=== PATIENT | male | born 1970 | race Caucasian/White ===

== ENCOUNTER 2018-02-07 01:52 | Inpatient (IN) | payer OTHER ==
[2018-02-07] VITALS (8 sets, daily range): BP systolic 104–124; BP diastolic 63–78; PULSE 77–97; TEMP 36.8–37.2; O2SAT 95–99; BMI 20.3
[~2018-02-07] VITALS: Ht 182.9 cm; Wt 69.3 kg
[2018-02-07] MEDS ORDERED: ONDANSETRON INJ 2 MG/ML 2 ML VIAL IV PRN (03:30)
[2018-02-07] MEDS ORDERED: ICU PROTOCOL FOR HYPERGLYCEMIA PRN (03:30)
[2018-02-07] MEDS ORDERED: GLUCAGON FOR INJ 1 MG VIAL SQ PRN (03:30)
[2018-02-07] MEDS ORDERED: VANCOMYCIN CONSULT ACTIVE PRN (03:30)
[2018-02-07] MEDS ORDERED: CARBOHYDRATES FOR HYPOGLYCEMIA PO PRN (03:30)
[2018-02-07] MEDS ORDERED: GLUCOSE 10 TABS/TUBE PO PRN (03:30)
[2018-02-07] MEDS ORDERED: GLUCOSE 40% GEL 15 GM TUBE PO PRN (03:30)
[2018-02-07] MEDS ORDERED: NOREPINEPHRINE BIT INJ 8 MG in DEXTROSE 5% 500ML 500 ML IV PRN (03:30)
[2018-02-07] MEDS ORDERED: DEXTROSE 50% 50 ML SYR IV PRN (03:30)
[2018-02-07] MEDS ORDERED: PIPERACILL/TAZOBAC CONSULT ACTIVE PRN (03:30)
[2018-02-07] MEDS ORDERED: GABA600T PO (03:55)
[2018-02-07] MEDS ORDERED: ASPI81TA28 PO (03:55)
[2018-02-07] MEDS ORDERED: DOXY100C PO (03:55)
[2018-02-07] MEDS ORDERED: CITA20TA9 PO (03:55)
[2018-02-07] MEDS ORDERED: LCTX PO (03:55)
[2018-02-07] MEDS ORDERED: [UNRECOGNIZED DRUG - CODE] PO (03:55)
[2018-02-07] MEDS ORDERED: OXYC-90 PO (03:55)
[2018-02-07] MEDS ORDERED: TAMS0.4C38 PO (03:55)
[2018-02-07] MEDS ORDERED: ATOR-24 PO (03:55)
[2018-02-07] MEDS ORDERED: FERR1TAB13 PO (03:55)
[2018-02-07] MEDS ORDERED: SRQ/200 PO (03:56)
[2018-02-07] MEDS ORDERED: RAMI5CAP PO (03:56)
[2018-02-07] MEDS ORDERED: VNTHFA/IN INH (03:56)
[2018-02-07] MEDS ORDERED: TRAZ100T29 PO (03:56)
[2018-02-07] MEDS ORDERED: QUET1TAB10 PO (03:56)
[2018-02-07] MEDS ORDERED: TICA1TAB PO (03:56)
[2018-02-07] MEDS ORDERED: METO25TA4 PO (03:56)
[2018-02-07] MEDS ORDERED: PIPERACILL/TAZOBAC IV 4.5 GM in D5W 100 ML IV ONE (04:00)
[2018-02-07] MEDS ORDERED: GABAPENTIN 600 MG TAB PO ONE (04:07)
[2018-02-07 04:08] LABS: BASO % 0.1 %; BASO ABS # 0.01 K/uL (0-0.2); EOS % 2.1 %; EOS ABS # 0.14 K/uL (0-0.5); HEMATOCRIT 32.8 % (42-52); IG# 0.01 K/uL (0.00-0.02); LYMPH % 24.9 %; LYMPH ABS # 1.67 K/uL (1.2-3.4); MEAN CELL VOLUME 80.2 fL (80-100); MEAN CORPUSCULAR HEMOGLOBIN 26.9 pg (25-34); MEAN CORPUSCULAR HGB CONC 33.5 g/dl (32-36); MEAN PLATELET VOLUME 11.6 fL (7.4-10.4); MONO % 7.2 %; MONO ABS # 0.48 K/uL (0.11-0.59); NEUT % 65.6 %; PLATELET COUNT 230 K/uL (130-400); RED CELL DISTRIBUTION WIDTH CV 15.9 % (11.5-14.5); RED CELL DISTRIBUTION WIDTH SD 46.2 fL (36.4-46.3); WHITE BLOOD COUNT 6.71 K/uL (4.8-10.8)
[2018-02-07] MEDS ORDERED: ALBUTEROL HFA 8 GM INHALER INH PRN (04:15)
[2018-02-07] MEDS ORDERED: FENTANYL CITRATE INJ 50 MCG/1 ML 2 ML VIAL ONE (04:19)
[2018-02-07 04:20] LABS: INR 1.1 (0.9-1.1); PTT PATIENT 25.8 SECONDS (21.0-31.0)
[2018-02-07] MEDS: SODIUM CHLORIDE 0.9% 1000ML 1,000 ML IV SCH ×2 (04:24→16:30)
[2018-02-07 04:31] LABS: ALBUMIN 2.6 gm/dl (3.4-5.0); ALKALINE PHOSPHATASE 308 U/L (45-117); ALT/SGPT 203 U/L (12-78); AST/SGOT 101 U/L (15-37); BLOOD UREA NITROGEN 32 mg/dl (7-18); CALCIUM 8.3 mg/dl (8.5-10.1); CARBON DIOXIDE 20 mmol/L (21-32); GLUCOSE 209 mg/dl (70-99); LIPASE 327 U/L (73-393); PHOSPHORUS 3.9 mg/dl (2.5-4.9); POTASSIUM 4.7 mmol/L (3.5-5.1); SODIUM 136 mmol/L (136-145); TOTAL PROTEIN 7.5 gm/dl (6.4-8.2)
[2018-02-07] MEDS: OXYCODONE HCL IR 5 MG TAB (IMMEDIATE RELEASE) PO PRN ×2 (04:36→16:31)
[2018-02-07] MEDS: FENTANYL CITRATE INJ 50 MCG/1 ML 2 ML VIAL IV PRN ×2 (04:40→08:01)
[2018-02-07] MEDS ORDERED: NURSING VERBAL MED ORDER ONE (05:30)
[2018-02-07] MEDS: MAGNESIUM SULFATE 1GM / D5W 100 ML IV SCH ×2 (05:46→07:57)
--- NOTE | 2018-02-07 05:47 | History and Physical ---
History & Physical Date & Time of Service: Feb 07, 2018 at 05:08 Chief Complaint: Septic Shock, Uti Primary Care Physician: Ky Alejandro D.O. History of Present Illness Source: patient, hospital records The patient is a 47-year-old male who presented to [facility] with complaint of elevated blood sugar into the 500s-600s the past 3-4 days,, and a syncopal episode of 1-2 minutes duration earlier in the day, as he was getting out of his car. He denied any trauma to his head or otherwise during the syncopal event. In the ED at [place], he was found to be hypotensive with systolic blood pressure in the 70s, with most likely source of infection being a UTI, but he also had a history of left foot with first, second and third toe infections, and an MRSA infected seroma post back surgery 1 month ago , for which he was thought to be on doxycycline. Despite having received 3 L of normal saline, and empiric treatment with vancomycin IV and cefepime IV, his blood pressure was still 74/60, and he was accepted in transfer to [facility] for further treatment at that time. Our advice at that time was to get an ABG, and start the patient on Levophed for pressure support. Past Medical/Surgical History Medical Problems: CAD Coronary artery stents , 12/19,& STEMI 12/19/17 GERD Anxiety Asthma Chronic back pain Depression Hyperlipidemia MRSA Neuropathy Lumbar spinal stenosis Tachycardia Diabetes mellitus Left foot first 3 toes osteomyelitis Chronic pain syndrome COPD Hypertension Insomnia BPH Sleep apnea Iron deficiency Cardiac catheterization 12/19,& Cardiac catheterization 01/30/18 Lumbar laminectomy and fusion 12/03/17 Ureteral stent insertion 11/11/17 Removal of stone and stent 11/27/17 Family History Mother with diabetes mellitus. Grandparents with heart disease and hypertension Social History Smoking Status: Current Every Day Smoker Smokeless Tobacco Use: No Alcohol Use: none Drug Use: none Marital Status: Housing status: lives with family Occupational Status: unemployed Immunizations History of Influenza Vaccine: Unknown History of Tetanus Vaccine?: Unknown History of Pneumococcal: Unknown History of Hepatitis B Vaccine: Unknown Allergies Coded Allergies: Morphine (Verified Allergy, Intermediate, RASH, 02/07/18) Promethazine (Verified Allergy, Intermediate, ANXIOUS/IRRITABLE, 02/07/18) Acetaminophen (Verified Adverse Reaction, Intermediate, GI UPSET, STILL TAKES IT, 02/07/18) Prochlorperazine (Verified Adverse Reaction, Intermediate, ANXIOUS/ IRRITABLE, 02/07/18) Home Medications Scheduled Aspirin (Aspirin Ec), 81 MG PO DAILY Atorvastatin (Lipitor), 40 MG PO DAILY Citalopram Hydrobromide (Celexa), 20 MG PO DAILY Doxycycline Hyclate (Vibramycin), 100 MG PO BID Ferrous Sulfate (Kp Ferrous Sulfate), 325 TAB PO DAILY Gabapentin (Neurontin), 600 MG PO BID Lactobacillus Acidophilus (Lactinex), 2 TAB PO BID Megestrol Acetate (Appetite) (Megestrol Acetate), 625 MG PO DAILY Metoprolol Succinate (Toprol Xl), 25 MG PO DAILY Quetiapine Fumarate (Seroquel), 200 MG PO QAM Quetiapine Fumarate (Seroquel), 400 MG PO HS Ramipril (Ramipril), 5 MG PO DAILY Tamsulosin Hcl (Flomax), 0.4 MG PO DAILY Ticagrelor (Brilinta), 90 MG PO BID Trazodone Hcl (Trazodone), 150 MG PO HS Scheduled PRN Albuterol Hfa (Ventolin Hfa), 2 PUFFS INH Q6H PRN for SOB/Wheezing Oxycodone Ir (Roxicodone Ir), 15 MG PO Q6H PRN for Pain Review of Systems The patient denies chest pain, palpitations, shortness of breath, dyspnea on exertion, cough, sore throat, nausea, vomiting, diarrhea , constipation, abdominal pain, pelvic pain, blood in urine or stool, dysuria, urinary frequency or urgency, memory loss, abnormal bruising or bleeding, numbness or tingling in arms, generalized arthralgias or myalgias, neck pain, or night sweats. The review of systems is otherwise negative other than for that already noted above, and at least 10 systems have been reviewed. Physical Exam Vital Signs Date Time Temp Pulse Resp B/P (MAP) Pulse Ox O2 Delivery O2 Flow Rate FiO2 02/07/18 03:36 37.2 93 19 124/78 99 Room Air The patient is awake, alert and oriented 3, normocephalic and atraumatic, lying in bed and in no acute distress. HEENT--PERRL, EOMI, mucous membranes and oropharynx dry. Neck--supple. No JVD. No bruits. Thyroid normal, trachea midline, no adenopathy. Heart--normal S1 and S2. No murmurs, rubs or gallops. Lungs--clear bilaterally, no respiratory distress, no accessory muscle use. Abdomen--normal bowel sounds and soft. Nontender. Nondistended, no hernias or masses, no organomegaly. Extremities/ Dermatologic-eschar along left first second and third digits extending from tips of toes distally to PIPs and DIPs. Neurologic--cranial nerves II through XII grossly intact. Rheumatologic--normal range of motion. Psychiatric--normal affect. Diagnostics Laboratory Results Results Past 24 Hours Test 02/07/18 03:24 02/07/18 04:01 02/07/18 04:44 Range/Units Bedside Glucose 239 70-99 mg/dl White Blood Count 6.71 4.8-10.8 K/uL Red Blood Count 4.09 4.7-6.1 M/uL Hemoglobin 11.0 14.0-18.0 g/dL Hematocrit 32.8 42-52 % Mean Corpuscular Volume 80.2 80-100 fL Mean Corpuscular Hemoglobin 26.9 25-34 pg Mean Corpuscular Hemoglobin Concent 33.5 32-36 g/dl Platelet Count 230 130-400 K/uL Mean Platelet Volume 11.6 7.4-10.4 fL Neutrophils (%) (Auto) 65.6 % Lymphocytes (%) (Auto) 24.9 % Monocytes (%) (Auto) 7.2 % Eosinophils (%) (Auto) 2.1 % Basophils (%) (Auto) 0.1 % Neutrophils # (Auto) 4.40 1.4-6.5 K/uL Lymphocytes # (Auto) 1.67 1.2-3.4 K/uL Monocytes # (Auto) 0.48 0.11-0.59 K/uL Eosinophils # (Auto) 0.14 0-0.5 K/uL Basophils # (Auto) 0.01 0-0.2 K/uL RDW Standard Deviation 46.2 36.4-46.3 fL RDW Coefficient of Variation 15.9 11.5-14.5 % Immature Granulocyte % (Auto) 0.1 % Immature Granulocyte # (Auto) 0.01 0.00-0.02 K/uL Prothrombin Time 11.4 9.0-12.0 SECONDS Prothromb Time International Ratio 1.1 0.9-1.1 Activated Partial Thromboplast Time 25.8 21.0-31.0 SECONDS Partial Thromboplastin Ratio 1.0 Sodium Level 136 136-145 mmol/L Potassium Level 4.7 3.5-5.1 mmol/L Chloride Level 110 98-107 mmol/L Carbon Dioxide Level 20 21-32 mmol/L Anion Gap 6.0 3-11 mmol/L Blood Urea Nitrogen 32 7-18 mg/dl Creatinine 1.20 0.60-1.40 mg/dl Estimated GFR () 83.0 Estimated GFR (Non- 71.6 BUN/Creatinine Ratio 26.5 10-20 Random Glucose 209 70-99 mg/dl Lactic Acid Level 1.2 0.4-2.0 mmol/L Calcium Level 8.3 8.5-10.1 mg/dl Phosphorus Level 3.9 2.5-4.9 mg/dl Magnesium Level 1.5 1.8-2.4 mg/dl Total Bilirubin 0.5 0.2-1 mg/dl Direct Bilirubin 0.2 0-0.2 mg/dl Aspartate Amino Transf (AST/SGOT) 101 15-37 U/L Alanine Aminotransferase (ALT/SGPT) 203 12-78 U/L Alkaline Phosphatase 308 45-117 U/L Troponin I 0.075 0-0.045 ng/ml Total Protein 7.5 6.4-8.2 gm/dl Albumin 2.6 3.4-5.0 gm/dl Globulin 4.9 2.5-4.0 gm/dl Albumin/Globulin Ratio 0.5 0.9-2 Lipase 327 73-393 U/L Microbiology Results 02/07/18 MRSA DNA Surveillance Screen, Received Pending 02/07/18 Gram Stain, Ordered Pending 02/07/18 Wound Culture, Ordered Pending CXR normal EKG EKG is pending. Impression Assessment and Plan Septic shock-- Admit to ICU. Upon arrival, patient's systolic blood pressure was 124, and Levophed infusion was discontinued. Patient has received 3 L of normal saline in total from [place], and will be continued at 75 ML's per hour now. Patient has received vancomycin 1500 mg IV and cefepime 1 g IV at [facility]. He will be admitted on vancomycin IV and Zosyn IV per pharmacokinetic monitoring. Consult whizzer hand Dr. Winslow. Consult infectious disease Dr. Colon. Consult wound care. Potential sources of infection include urine, left foot osteomyelitis and MRSA infected seroma. Follow wound culture, urine culture and sensitivities and blood cultures, and coordinate with those performed at [facility]. Of note, patient reports he will be scheduled shortly for left first, second and third toe amputation. Culture was performed of drainage at bedside by staff. CAD/hypertension/STEMI history/coronary artery stents 4/chronically elevated troponin-- Follow serial troponins. Continue aspirin 81 mg daily and Brilinta 90 mg p.o. twice daily. Hold ramipril 5 mg daily and Toprol-XL 25 mg daily due to low blood pressure. Diabetes mellitus-- Placed on Accu-Cheks before meals and at bedtime with NovoLog coverage per scale. Review with patient present medications, as he is none listed on his present medical list. Hyperlipidemia-- Continue atorvastatin 40 mg at bedtime. Depression-- Continue Celexa 20 mg daily, Seroquel and trazodone. COPD-- continue pro-air HFA. Chronic pain syndrome-- Continue gabapentin 600 mg p.o., but increased from twice daily to 3 times daily with extra dose now, and oxycodone 15 mg p.o. every 6 hours as needed. Placed on fentanyl 25 mcg IV every 2 hours as needed breakthrough pain BPH-- Continue Flomax 0.4 mg p.o. daily, but moved to bedtime. Appetite stimulation-- Continue Megace. Advanced Directives Existing Advance Directive: No Existing Living Will: No Existing Power of Sugar Mixer: No Resuscitation Status VTE Prophylaxis Will order VTE Prophylaxis: Yes Social Service Consult None Apply Note Total Time: Critical Care 30 - 74 minutes
--- NOTE | 2018-02-07 06:57 | Progress Note ---
Progress Note Date of Service Feb 07, 2018. Progress Note ID Consult Dictated #[id number] A/P: 1. Sepsis, multiple potential sources, infected back hardware (h/o MRSA), gangrene Left foot -Continue abx -Will check blood and urine cultures -Suggest surgery eval, gangrene left toes -Thank you
--- NOTE | 2018-02-07 07:15 | DIAGNOSTIC IMAGING REPORT ---
CHEST ONE VIEW PORTABLE CLINICAL HISTORY: sepsis dyspnea COMPARISON STUDY: No previous studies for comparison. FINDINGS: The bones soft tissues and hemidiaphragms are normal. The cardiomediastinal silhouette is normal. The lungs are clear. The pulmonary vasculature is normal. IMPRESSION: Negative chest. The above report was generated using voice recognition software. It may contain grammatical, syntax or spelling errors. Electronically signed by: Vaughn Duran M.D. 02/07/2018 7:14 AM Dictated Date/Time: 02/07/2018 7:14 AM
--- NOTE | 2018-02-07 07:50 | DIAGNOSTIC IMAGING REPORT ---
L FOOT MIN 3 VIEWS ROUTINE CLINICAL HISTORY: osteo left 1, 2 and 3rd toe COMPARISON: None. DISCUSSION: The bones and joint spaces appear intact. There is no evidence of fracture, dislocation or bony disease. There is no evidence for soft tissue swelling. IMPRESSION: Negative study. The above report was generated using voice recognition software. It may contain grammatical, syntax or spelling errors. Electronically signed by: Vaughn Duran M.D. 02/07/2018 7:49 AM Dictated Date/Time: 02/07/2018 7:48 AM
[2018-02-07] MEDS: INSULIN ASPART 100 UNITS/ML 3 ML PEN SC SCH ×4 (08:00→21:58)
[2018-02-07] MEDS: LACTOBACILLUS ACIDOPHILUS (FLORANEX) TAB PO SCH ×3 (08:07→16:30)
[2018-02-07] MEDS: TICAGRELOR 90 MG TAB PO SCH ×2 (08:07→22:00)
[2018-02-07] MEDS: QUETIAPINE FUMARATE 200 MG TAB PO SCH ×2 (08:08→21:40)
[2018-02-07] MEDS: GABAPENTIN 600 MG TAB PO SCH ×3 (08:08→21:43)
[2018-02-07] MEDS: ASPIRIN 81 MG ECTAB PO SCH (08:08)
[2018-02-07] MEDS: FERROUS SULFATE 325 MG TAB PO SCH (08:08)
[2018-02-07] MEDS: CITALOPRAM 20 MG TAB PO SCH (08:08)
[2018-02-07] MEDS: HEPARIN SOD 5000 UNIT/0.5 ML CARP SQ SCH ×2 (08:10→21:59)
[2018-02-07] MEDS ORDERED: ASPIRIN 81 MG ECTAB PO SCH (09:00)
[2018-02-07] MEDS: VANCOMYCIN IV 1,000 MG in SODIUM CHLORIDE 0.9% 250ML 250 ML IV SCH ×2 (09:13→21:39)
--- NOTE | 2018-02-07 09:41 | INFECT. DISEASE CONSULTATION ---
DATE OF CONSULTATION: 02/07/2018 HISTORY OF PRESENT ILLNESS: This is a 48-year-old gentleman who was transferred from [facility] secondary to hypotension and hyperglycemia. He presented initially there with high blood sugars in the 500-600 range several days prior to admission. He was also found to be hypotensive with a systolic blood pressure in the 70s. He was given IV fluids without little response and he was subsequently transferred. He was admitted to the intensive care unit and placed on norepinephrine. His systolic blood pressure is 120 on my examination this morning. The patient states that he recently completed a course of IV vancomycin for infected lumbar hardware. His hardware was retained and he states his repeat cultures were negative and he was then placed on suppressive doxycycline, which he has been on up until his admission yesterday. He was placed on vancomycin and Zosyn empirically. There was some concern at [facility] about urinary tract infection; however, no UA or urine culture was done here. His white blood cell count is normal. His LFTs are elevated. He is also found to have gangrenous changes of several toes on his left foot. He is complaining of left foot pain which has been there for some time. He also does report some underlying neuropathy. He denies any fevers or chills at home. He states his PICC line has been removed for some time. No blood cultures were obtained on admission. A wound culture is pending; however, there are no open areas of discharge on the foot. He currently denies any abdominal pain. He denies any chest pain, cough or shortness of breath. He has no nausea, vomiting or diarrhea. He states his weight is stable. REVIEW OF SYSTEMS: His remaining review of systems is reviewed and is unremarkable except for as noted above. PAST MEDICAL HISTORY: He has an extensive past medical history including coronary artery disease with recent cardiac stenting in November of 2017. He recently had an ST elevated SC on December 19. He has a history of GERD, anxiety, asthma, back pain, depression, hyperlipidemia, MRSA, sepsis secondary to infected lumbar hardware which remains in place, diabetic neuropathy, spinal stenosis, diabetes, left foot osteomyelitis, COPD, hypertension, insomnia, BPH, sleep apnea, iron deficiency, lumbar laminectomy and fusion in November with subsequent infection, history of ureteral stent insertion in October with removal of stones in November. FAMILY HISTORY: Noncontributory. SOCIAL HISTORY: Significant for daily tobacco use. He denies any alcohol or drug use. He denies any recent sick contacts. ALLERGIES: MORPHINE, ACETAMINOPHEN, PROCHLORPERAZINE, PROMETHAZINE. CURRENT MEDICATIONS: Lipitor, Seroquel, Flomax, trazodone, Zosyn, subQ heparin, vancomycin, aspirin, Celexa, Neurontin, Seroquel, Brilinta, iron, Floranex, insulin, albuterol, fentanyl, oxycodone, Ativan, norepinephrine, Zofran. PHYSICAL EXAMINATION: VITAL SIGNS: He is currently afebrile, pulse 93, respiratory rate 18, blood pressure 124/78, oxygen saturation is 99% on room air. GENERAL: He is awake, alert and oriented x3. He is in no acute distress. HEENT: Mucous membranes are moist. Extraocular muscles are intact. HEART: Regular. I do not auscultate a murmur. LUNGS: Clear bilaterally. ABDOMEN: Soft, nontender, nondistended. EXTREMITIES: There is no lower extremity edema. Examination of the left foot reveals dry gangrene of the first, second and third digits. This is tender to palpation. There is no erythema, warmth or purulent drainage. LABORATORY STUDIES: CBC: White blood cell count 6.7, hemoglobin 11, platelets 230. Chemistry panel: Sodium 136, potassium 4.7, chloride 110, bicarbonate 20, BUN 32, creatinine 1.2, glucose 209. AST 101, ALT 203. Troponin 0.075. Lipase is normal. UA is not performed. Hepatitis screen is pending. Lactic acid was normal. Wound culture is pending. MRSA swab was negative. Chest x-ray is pending. ASSESSMENT AND PLAN: Postoperative infection with MRSA. He will continue on empiric antibiotics. His blood cultures as well as his urine cultures and UA will be obtained if these are of concerned sources for infection, certainly gangrenous toes and subsequent sepsis could also be a source for infection and surgical consult should be obtained as well. Thank you for this consultation.
--- NOTE | 2018-02-07 10:06 | Critical Care Consultation ---
Critical Care Consultation Date of Consultation: Feb 07, 2018. Attending Physician: Amilcar Winslow MD Reason for Consultation: Sepsis History of Present Illness Dear Dr. Kirk: Thank you for the kind referral Mr. Miles to critical care service. This is 48- year-old gentleman with a history of diabetes, controlled by insulin and metformin, history of peripheral arterial disease with ischemic digits on the left, history of spinal fracture and degenerative joint disease status post thoracolumbar fusion with most recent procedure done in November 2017 complicated by infected seroma and has been on suppressive therapy with doxycycline. The patient also has history of coronary artery disease status post acute MS with 4 stents done over a month ago and currently he is on Brilinta. The patient was at his brother house when he passed out and was brought to the ER at [place] where he was found to be hypotensive and started on IV fluid. Concerns about sepsis related to starting him on IV fluid where he received 4 L of normal saline. The patient has a history of cardiomyopathy which appeared to be ischemic and ejection fraction of 40% according to the records from Dr. Kirk, and the patient was life flighted to our institution for sepsis due to lack of service at that institution. The patient chief complaint was left lower extremity pain due to the gangrenous 3 digits, the patient has been treated for the pain with fentanyl which have been short acting and has not been controlling his pain. He denies any chills or fever, no nausea or vomiting, no shortness of breath or cough, no abdominal pain no frequent urination or dysuria, he denies any diarrhea, he had back pain that has been chronic. And treated at the other facility. The patient did not require norepinephrine in the hospital and was taken off immediately. The patient glucose on the first presentation was 500 and currently been well controlled. The patient started also on oral intake and he is following commands and answering questions properly, no evidence of near syncopal episode at the moment no chest pain is also been reported. The rest of his review of system was unremarkable except for the pain in his left lower extremity. Social History Smoking Status: Current Every Day Smoker Smokeless Tobacco Use: No Alcohol Use: none Drug Use: none Marital Status: Occupation Status: unemployed Allergies Coded Allergies: Morphine (Verified Allergy, Intermediate, RASH, 02/07/18) Promethazine (Verified Allergy, Intermediate, ANXIOUS/IRRITABLE, 02/07/18) Acetaminophen (Verified Adverse Reaction, Intermediate, GI UPSET, STILL TAKES IT, 02/07/18) Prochlorperazine (Verified Adverse Reaction, Intermediate, ANXIOUS/ IRRITABLE, 02/07/18) Home Medications Scheduled Aspirin (Aspirin Ec), 81 MG PO DAILY Atorvastatin (Lipitor), 40 MG PO DAILY Citalopram Hydrobromide (Celexa), 20 MG PO DAILY Doxycycline Hyclate (Vibramycin), 100 MG PO BID Ferrous Sulfate (Kp Ferrous Sulfate), 325 TAB PO DAILY Gabapentin (Neurontin), 600 MG PO BID Lactobacillus Acidophilus (Lactinex), 2 TAB PO BID Megestrol Acetate (Appetite) (Megestrol Acetate), 625 MG PO DAILY Metoprolol Succinate (Toprol Xl), 25 MG PO DAILY Quetiapine Fumarate (Seroquel), 200 MG PO QAM Quetiapine Fumarate (Seroquel), 400 MG PO HS Ramipril (Ramipril), 5 MG PO DAILY Tamsulosin Hcl (Flomax), 0.4 MG PO DAILY Ticagrelor (Brilinta), 90 MG PO BID Trazodone Hcl (Trazodone), 150 MG PO HS Scheduled PRN Albuterol Hfa (Ventolin Hfa), 2 PUFFS INH Q6H PRN for SOB/Wheezing Oxycodone Ir (Roxicodone Ir), 15 MG PO Q6H PRN for Pain Current Inpatient Medications Current Inpatient Medications Medications (Trade) Dose Ordered Sig/Lavonne Route Start Time Stop Time Status Last Admin Dose Admin Heparin Sodium (Porcine) (Heparin Sq 5000 Unit/0.5ml) 5,000 unit Q12H SQ 02/07/18 09:00 03/09/18 08:59 02/07/18 08:10 5,000 UNIT Sodium Chloride 1,000 ml @ 75 mls/hr [id number] IV 02/07/18 03:30 03/09/18 03:29 02/07/18 04:24 150 MLS/HR Lorazepam (Ativan Inj) 0.5 mg Q4H PRN IV 02/07/18 03:30 03/09/18 03:29 Miscellaneous Information (Icu Protocol For Hyperglycemia) 1 ea PRN PRN N/A 02/07/18 03:30 02/09/18 03:29 Vancomycin HCl 1000 mg/Sodium Chloride 270 ml @ 125 mls/hr Q12 IV 02/07/18 09:00 02/09/18 08:59 02/07/18 09:13 125 MLS/HR Vancomycin HCl (Consult) 1 ea UD PRN N/A 02/07/18 03:30 03/09/18 03:29 Piperacillin Sod/ Tazobactam Sod 3.375 gm/Dextrose 115 ml @ 28.75 mls/ hr Q8H IV 02/07/18 10:00 02/09/18 09:59 Miscellaneous Information (Consult) 1 ea UD PRN N/A 02/07/18 03:30 03/09/18 03:29 Ondansetron HCl (Zofran Inj) 4 mg Q6H PRN IV 02/07/18 03:30 03/09/18 03:29 Insulin Aspart (novoLOG ASPART) SLIDING SCALE If C... ACHS SC 02/07/18 06:45 03/09/18 06:44 02/07/18 08:00 12 UNITS Glucose (Glucose 40% Gel) 15-30 GRAMS 15 GRAMS... UD PRN PO 02/07/18 03:30 03/09/18 03:29 Glucose (Glucose Chew Tab) 4-8 Tablets 4 Tabl... UD PRN PO 02/07/18 03:30 03/09/18 03:29 Dextrose (Dextrose 50% 50ML Syringe) 25-50ML OF 50% DW IV FOR... UD PRN IV 02/07/18 03:30 03/09/18 03:29 Glucagon (Glucagon Inj) 1 mg UD PRN SQ 02/07/18 03:30 03/09/18 03:29 Carbohydrates (Carbohydrates For Hypoglycemia) 15-30 GRAMS 15 grams if BSG 54-69... UD PRN PO 02/07/18 03:30 03/09/18 03:29 Oxycodone HCl (Roxicodone Immediate Rel Tab) 15 mg Q6H PRN PO 02/07/18 03:45 02/21/18 03:44 02/07/18 04:36 15 MG Albuterol (Ventolin Hfa Inhaler) 2 puffs Q6H PRN INH 02/07/18 04:15 03/09/18 04:14 Aspirin (Ecotrin Tab) 81 mg DAILY PO 02/07/18 09:00 03/09/18 08:59 02/07/18 08:08 81 MG Atorvastatin Calcium (Lipitor Tab) 40 mg HS PO 02/07/18 21:00 03/09/18 20:59 Citalopram Hydrobromide (celeXA TAB) 20 mg DAILY PO 02/07/18 09:00 03/09/18 08:59 02/07/18 08:08 20 MG Gabapentin (Neurontin Tab) 600 mg TID PO 02/07/18 09:00 03/09/18 08:59 02/07/18 08:08 600 MG Quetiapine Fumarate (seroQUEL TAB) 200 mg QAM PO 02/07/18 09:00 03/09/18 08:59 02/07/18 08:08 200 MG Quetiapine Fumarate (seroQUEL TAB) 400 mg HS PO 02/07/18 21:00 03/09/18 20:59 Tamsulosin HCl (Flomax Cap) 0.4 mg HS PO 02/07/18 21:00 03/09/18 20:59 Ticagrelor (Brilinta Tab) 90 mg BID PO 02/07/18 09:00 03/09/18 08:59 02/07/18 08:07 90 MG Trazodone HCl (Desyrel Tab) 150 mg HS PO 02/07/18 21:00 03/09/18 20:59 Miscellaneous Information (Order Awaiting Action) 1 ea QS N/A 02/07/18 08:00 03/09/18 07:59 Lactobacillus Acidophilus (Floranex Tab) 4 tab TIDM PO 02/07/18 07:15 03/09/18 07:14 02/07/18 08:07 4 TAB Ferrous Sulfate (Feosol Tab) 325 mg QAM PO 02/07/18 09:00 03/09/18 08:59 02/07/18 08:08 325 MG Hydromorphone HCl (Dilaudid Inj) 1 mg Q2HWA PRN IV 02/07/18 09:45 02/21/18 09:44 UNV Review of Systems Constitutional: No fever, No chills, No sweats, No weight loss, No weakness, No fatigue, No problem reported Eyes: No worsening of vision, No eye pain, No redness, No discharge, No diplopia, No problem reported ENT: No hearing loss, No unusual epistaxis, No nasal symptoms, No sore throat, No tinnitus, No dental problems, No trouble swallowing, No problem reported Respiratory: No cough, No sputum, No wheezing, No shortness of breath, No dyspnea on exertion, No dyspnea at rest, No hemoptysis, No problem reported Cardiovascular: No chest pain, No orthopnea, No PND, No edema, No claudication , No palpitations, No problem reported Abdomen: No pain, No nausea, No vomiting, No diarrhea, No constipation, No GI bleeding, No problem reported Musculoskeletal: + problem reported (Left lower extremity pain due to gangrenous toes.) Genitourinary - Male: No hematuria, No dysuria, No urinary frequency, No urinary urgency, No urinary hesitancy, No urinary retention, No urinary incontinence, No penile discharge, No lesions, No impotence, No problem reported Neurologic: No memory loss, No paralysis, No weakness, No numbness/tingling, No vertigo, No balance problems, No problem reported Psychiatric: No depression symptoms, No anhedonism, No anxiety, No insomnia, No substance abuse, No problem reported Endocrine: No fatigue, No excessive thirst, No excessive urination, No problem reported Hematologic / Lymphatic: No abnormal bleeding/bruising, No clotting problems, No swollen lymph nodes, No night sweats, No problem reported Integumentary: No rash, No itch, No new/changing skin lesions, No color change , No bleeding, No problem reported Allergic / Immunologic: No environmental allergies, No seasonal allergies, No pet sensitivities, No food allergies, No hives, No frequent infections, No poor healing, No prolonged convalescence, No problem reported Physical Exam Date Time Temp Pulse Resp B/P (MAP) Pulse Ox O2 Delivery O2 Flow Rate FiO2 02/07/18 08:00 37.2 90 19 117/72 (87) 97 Room Air 02/07/18 08:00 Room Air 02/07/18 03:36 37.2 93 19 124/78 99 Room Air General Appearance: no apparent distress Eyes: EOMI ENT: normal throat exam, normal sinus exam Neck: normal range of motion Respiratory: breath sounds normal Cardiovasular: regular rate/rhythm Abdomen: non tender Back: other (Mild tenderness mainly in the lumbar and thoracic area.) Lower Extremities: other (Gangrenous 3 digits 1 2 and 3 in the left lower extremity. Dry gangrene.) Neuro: alert, oriented x 3, normal motor exam, normal sensation Psychiatric: normal affect, other (History of bipolar.) Laboratory Results Last 24 Hours Test 02/07/18 03:24 02/07/18 04:01 02/07/18 05:09 02/07/18 06:57 Bedside Glucose 239 mg/dl White Blood Count 6.71 K/uL Red Blood Count 4.09 M/uL Hemoglobin 11.0 g/dL Hematocrit 32.8 % Mean Corpuscular Volume 80.2 fL Mean Corpuscular Hemoglobin 26.9 pg Mean Corpuscular Hemoglobin Concent 33.5 g/dl Platelet Count 230 K/uL Mean Platelet Volume 11.6 fL Neutrophils (%) (Auto) 65.6 % Lymphocytes (%) (Auto) 24.9 % Monocytes (%) (Auto) 7.2 % Eosinophils (%) (Auto) 2.1 % Basophils (%) (Auto) 0.1 % Neutrophils # (Auto) 4.40 K/uL Lymphocytes # (Auto) 1.67 K/uL Monocytes # (Auto) 0.48 K/uL Eosinophils # (Auto) 0.14 K/uL Basophils # (Auto) 0.01 K/uL RDW Standard Deviation 46.2 fL RDW Coefficient of Variation 15.9 % Immature Granulocyte % (Auto) 0.1 % Immature Granulocyte # (Auto) 0.01 K/uL Prothrombin Time 11.4 SECONDS Prothromb Time International Ratio 1.1 Activated Partial Thromboplast Time 25.8 SECONDS Partial Thromboplastin Ratio 1.0 Sodium Level 136 mmol/L Potassium Level 4.7 mmol/L Chloride Level 110 mmol/L Carbon Dioxide Level 20 mmol/L Anion Gap 6.0 mmol/L Blood Urea Nitrogen 32 mg/dl Creatinine 1.20 mg/dl Estimated GFR () 83.0 Estimated GFR (Non- 71.6 BUN/Creatinine Ratio 26.5 Random Glucose 209 mg/dl Lactic Acid Level 1.2 mmol/L Calcium Level 8.3 mg/dl Phosphorus Level 3.9 mg/dl Magnesium Level 1.5 mg/dl Total Bilirubin 0.5 mg/dl Direct Bilirubin 0.2 mg/dl Aspartate Amino Transf (AST/SGOT) 101 U/L Alanine Aminotransferase (ALT/SGPT) 203 U/L Alkaline Phosphatase 308 U/L Troponin I 0.075 ng/ml Total Protein 7.5 gm/dl Albumin 2.6 gm/dl Globulin 4.9 gm/dl Albumin/Globulin Ratio 0.5 Lipase 327 U/L Hepatitis B Surface Antigen NEG Diagnostic Results No leukocytosis, or left shift, BUN/creatinine has been stable, lactic acid is normal, chest x-ray is normal, no evidence of abnormality to suggest sepsis. UA is still pending. Assessment & Plan 1. Hyperosmolar hyperglycemia resulted in dehydration and hypotension. 2. I found no evidence of sepsis in this patient, patient is not febrile, no leukocytosis, no left shift, no bandemia, no lactic acidosis either. Chest x- ray is normal, UA is pending, abdomen is benign, the patient is on doxycycline for suppressive therapy for infected seroma since November. 3. Poorly controlled diabetes. 4. Peripheral arterial disease, status post dry gangrene in the left lower extremity. 5. Bipolar disorder. 6. Coronary artery disease status post PURVI 4 in November 2017 currently on Brilinta. 7. Ischemic cardiomyopathy with ejection fraction of 40%. Plan: 1. Appreciate all notes including infectious disease note. 2. Continue with doxycycline. 3. May discontinue all antibiotics other than doxycycline which has been prescribed as a suppressive therapy for staphylococcal infection. 4. Discontinue norepinephrine. 5. Continue with normal saline at 80 mL an hour only. Ejection fraction 40% should be adequate to handle it. 6. DVT prophylaxis. 7. Continue with aspirin and Brilinta. 8. The patient likely will need lower extremity digit amputation due to gangrene, vascular consult request in that regard. 9. Glucose control. 10. Oral intake. 11. As mentioned above, no evidence of sepsis or septic shock in this patient. 12. Disposition the patient to regular floor. 13. Continue with Dilaudid and discontinue fentanyl as it is short-acting for pain control. 14. Continue his antipsychotic medication. 15. Discussed with the staff on rounds and details, although was appreciated, critical care time spent with the patient was 45 minutes.
[2018-02-07] MEDS: HYDROmorphone INJ 0.5 MG/0.5 ML SYR IV PRN ×6 (10:26→23:47)
[2018-02-07] MEDS: PIPERACILL/TAZOBAC IV 3.375 GM in DEXTROSE 5% 100ML 100 ML IV SCH ×2 (10:27→17:01)
--- NOTE | 2018-02-07 11:11 | DIAGNOSTIC IMAGING REPORT ---
(LIVER) ABDOMEN LIMITED CLINICAL HISTORY: abnormal LFT's pain. Nausea. TECHNIQUE: Ultrasound COMPARISON STUDY: None FINDINGS: Prior cholecystectomy. Common bile duct 5 mm. Mild fatty replacement of the liver. Pancreas and right kidney are unremarkable. No evidence for right renal hydronephrosis. IMPRESSION: 1. Mild fatty infiltration of liver. 2. Otherwise negative study post cholecystectomy. The above report was generated using voice recognition software. It may contain grammatical, syntax or spelling errors. Electronically signed by: Vaughn Duran M.D. 02/07/2018 11:10 AM Dictated Date/Time: 02/07/2018 11:09 AM
[2018-02-07 12:23] LABS: CKMB 1.6 ng/ml (0.5-3.6)
[2018-02-07] MEDS: BOOST GLUCOSE CONTROL VANILLA PO SCH (16:29)
[2018-02-07 19:55] LABS: CKMB 1.4 ng/ml (0.5-3.6)
[2018-02-07] MEDS: TAMSULOSIN HCL 0.4 MG CAP PO SCH (21:40)
[2018-02-07] MEDS: TRAZODONE HCL 100 MG TAB PO SCH (21:41)
[2018-02-07] MEDS: ATORVASTATIN 20 MG TAB PO SCH (21:42)
[2018-02-08] MEDS: OXYCODONE HCL IR 5 MG TAB (IMMEDIATE RELEASE) PO PRN ×2 (00:47→07:56)
[2018-02-08] MEDS: PIPERACILL/TAZOBAC IV 3.375 GM in DEXTROSE 5% 100ML 100 ML IV SCH ×3 (02:08→17:31)
[2018-02-08] MEDS: HYDROmorphone INJ 0.5 MG/0.5 ML SYR IV PRN ×11 (02:08→23:30)
[2018-02-08 04:08] VITALS: BP 114/81; PULSE 84; TEMP 36.9; O2SAT 96
[2018-02-08] MEDS: SODIUM CHLORIDE 0.9% 1000ML 1,000 ML IV SCH (04:32)
[2018-02-08 07:02] LABS: BASO % 0.2 %; BASO ABS # 0.01 K/uL (0-0.2); EOS ABS # 0.17 K/uL (0-0.5); HEMATOCRIT 32.1 % (42-52); HEMOGLOBIN 10.7 g/dL (14.0-18.0); IG# 0.01 K/uL (0.00-0.02); LYMPH % 26.6 %; LYMPH ABS # 1.51 K/uL (1.2-3.4); MEAN CELL VOLUME 81.5 fL (80-100); MEAN CORPUSCULAR HEMOGLOBIN 27.2 pg (25-34); MEAN CORPUSCULAR HGB CONC 33.3 g/dl (32-36); MEAN PLATELET VOLUME 11.4 fL (7.4-10.4); MONO % 6.7 %; MONO ABS # 0.38 K/uL (0.11-0.59); NEUT % 63.3 %; PLATELET COUNT 230 K/uL (130-400); RED CELL DISTRIBUTION WIDTH SD 47.3 fL (36.4-46.3); WHITE BLOOD COUNT 5.68 K/uL (4.8-10.8)
[2018-02-08 07:07] LABS: PTT PATIENT 26.7 SECONDS (21.0-31.0)
--- NOTE | 2018-02-08 07:09 | DIAGNOSTIC IMAGING REPORT ---
CHEST ONE VIEW PORTABLE CLINICAL HISTORY: Sepsis. COMPARISON STUDY: Chest radiograph February 07, 2018. FINDINGS: A 5 mm metallic density projects over the right upper quadrant. This may reflect a BB. There is slight elevation of the right hemidiaphragm. No pneumothorax or pleural effusion is present. There is no consolidation to suggest pneumonia. Pulmonary vascularity is normal. Cardiac size is normal. Mediastinal contours are normal. A few healed left rib fractures are incidentally noted. IMPRESSION: No acute cardiopulmonary findings. Electronically signed by: Pako Lopez M.D. 02/08/2018 7:08 AM Dictated Date/Time: 02/08/2018 7:06 AM
[2018-02-08] MEDS: BOOST GLUCOSE CONTROL VANILLA PO SCH ×2 (07:37→16:56)
[2018-02-08] MEDS: CITALOPRAM 20 MG TAB PO SCH (07:38)
[2018-02-08] MEDS: FERROUS SULFATE 325 MG TAB PO SCH (07:38)
[2018-02-08] MEDS: TICAGRELOR 90 MG TAB PO SCH ×2 (07:39→21:00)
[2018-02-08] MEDS: ASPIRIN 81 MG ECTAB PO SCH (07:39)
[2018-02-08] MEDS: GABAPENTIN 600 MG TAB PO SCH ×3 (07:39→21:01)
[2018-02-08] MEDS: LACTOBACILLUS ACIDOPHILUS (FLORANEX) TAB PO SCH ×3 (07:40→16:56)
[2018-02-08] MEDS: QUETIAPINE FUMARATE 200 MG TAB PO SCH ×2 (07:40→21:00)
[2018-02-08] MEDS: INSULIN ASPART 100 UNITS/ML 3 ML PEN SC SCH ×4 (07:45→21:06)
[2018-02-08 08:03] VITALS: BP 99/63; PULSE 81; TEMP 36.8; O2SAT 96
[2018-02-08 08:08] LABS: ALBUMIN 2.7 gm/dl (3.4-5.0); CALCIUM 9.2 mg/dl (8.5-10.1); CREATININE 0.98 mg/dl (0.60-1.40); PHOSPHORUS 3.2 mg/dl (2.5-4.9); POTASSIUM 4.6 mmol/L (3.5-5.1); TOTAL PROTEIN 7.5 gm/dl (6.4-8.2)
--- NOTE | 2018-02-08 08:22 | Clinical Documentation Query ---
DUT[facility] Go : CLINICAL VALIDATION QUERY A possible contradiction exists between attending and artist consultant documentation. Hospitalist documentation includes "septic shock", noting significant crystalloid infusion with short term use of Levophed and ongoing treatment of antibiotics. ID and pharmacologist were consulted. Potential sources of infection included the urine, ?left foot osteomyelitis, MRSA infected seroma. Basket Weaver noted "patient is not febrile, no leukocytosis or left shift, normal lactic acid, normal chest radiograph, no evidence of abnormality to suggest sepsis." Noted doxycycline was only for "suppressive therapy for infected seroma since November". All other antibiotics were suggested to be discontinued. Diagnoses included hyperosmolar hyperglycemia. Patient was subsequently transferred out of ICU. Please clarify as clinically appropriate. That is, was septic shock POA, treated/resolved? Or was it ruled out? Alternatively, was hyperosmolar hyperglycemia the possible/likely culprit for admission. Please clarify and document your clinical opinion in the progress notes and discharge summary. Terms such as "probable", "suspected", "likely", "questionable", "possible", or "still to be ruled out" are acceptable. IF IN AGREEMENT, YOU MUST DOCUMENT ABOVE DIAGNOSTIC STATEMENT IN DAILY PROGRESS NOTES AND DISCHARGE SUMMARY. This document is not part of the patient's record. Thank You, Pollo Meier RN [phone]
[2018-02-08] MEDS: VANCOMYCIN IV 1,000 MG in SODIUM CHLORIDE 0.9% 250ML 250 ML IV SCH ×2 (08:53→21:39)
[2018-02-08] MEDS: HEPARIN SOD 5000 UNIT/0.5 ML CARP SQ SCH ×2 (09:01→21:05)
--- NOTE | 2018-02-08 09:47 | Progress Note ---
Subjective Date of Service: Feb 08, 2018. Subjective Pt evaluation today including: conversation w/ patient, physical exam, chart review, lab review pt seen in followup, transferred from ICU, pressors no longer needed. bp stable. no syncopal episodes since transfer. blood sugar much improved. UA negative, blood cultures pending. no back pain, only complaint is of continued pain in left foot. culture pending but gram stain negative, no open wounds, no drainage. no f/c. tolerating abx. wbc nml. no cp, sob, cough. remaining ros reviewed and are negative, except as noted. Objective Vital Signs Date Time Temp Pulse Resp B/P (MAP) Pulse Ox O2 Delivery O2 Flow Rate FiO2 02/08/18 08:03 36.8 81 18 99/63 (75) 96 Room Air 02/08/18 04:08 36.9 84 15 114/81 (92) 96 Room Air 02/07/18 23:59 Room Air 02/07/18 23:33 36.8 77 18 104/63 (77) 98 Room Air 02/07/18 19:41 37.0 83 20 105/70 (82) 97 Room Air 02/07/18 16:00 37.0 79 10 109/74 (86) 95 Room Air 02/07/18 14:00 86 11 104/63 (77) 96 Room Air 02/07/18 12:00 37.0 97 15 105/72 (83) 97 Room Air 02/07/18 10:00 90 19 110/72 (85) 97 Room Air Physical Exam General Appearance: WD/WN, no apparent distress Eyes: normal inspection, EOMI Neck: supple Respiratory/Chest: lungs clear, normal breath sounds, no respiratory distress Cardiovascular: regular rate, rhythm, no edema Abdomen: non tender, soft Extremities: no pedal edema Neurologic/Psychiatric: alert, oriented x 3 Skin: normal color Comments: dry gangrene noted left toes. no drainage, no warmth, no erythema. Laboratory Results Item Value Date Time Gram Stain - Final Resulted 02/07/18 0320 Ulcer Foot Left Last 24 Hours Test 02/07/18 10:52 02/07/18 11:43 02/07/18 16:15 02/07/18 16:35 Bedside Glucose 152 mg/dl 171 mg/dl Total Creatine Kinase 37 U/L Creatine Kinase MB 1.6 ng/ml Creatine Kinase MB Ratio 4.3 Troponin I 0.061 ng/ml Urine Color YELLOW Urine Appearance CLEAR Urine pH 6.0 Urine Specific Alsey 1.015 Urine Protein NEG Urine Glucose (UA) 2+ Urine Ketones NEG Urine Occult Blood NEG Urine Nitrite NEG Urine Bilirubin NEG Urine Urobilinogen NEG Urine Leukocyte Esterase NEG Urine WBC (Auto) 1-5 /hpf Urine RBC (Auto) 0-4 /hpf Urine Hyaline Casts (Auto) 1-5 /lpf Urine Epithelial Cells (Auto) 5-10 /lpf Urine Bacteria (Auto) NEG Test 02/07/18 19:22 02/07/18 20:53 02/08/18 06:43 02/08/18 07:22 Total Creatine Kinase 36 U/L Creatine Kinase MB 1.4 ng/ml Creatine Kinase MB Ratio 3.9 Troponin I 0.044 ng/ml Bedside Glucose 203 mg/dl 299 mg/dl White Blood Count 5.68 K/uL Red Blood Count 3.94 M/uL Hemoglobin 10.7 g/dL Hematocrit 32.1 % Mean Corpuscular Volume 81.5 fL Mean Corpuscular Hemoglobin 27.2 pg Mean Corpuscular Hemoglobin Concent 33.3 g/dl Platelet Count 230 K/uL Mean Platelet Volume 11.4 fL Neutrophils (%) (Auto) 63.3 % Lymphocytes (%) (Auto) 26.6 % Monocytes (%) (Auto) 6.7 % Eosinophils (%) (Auto) 3.0 % Basophils (%) (Auto) 0.2 % Neutrophils # (Auto) 3.60 K/uL Lymphocytes # (Auto) 1.51 K/uL Monocytes # (Auto) 0.38 K/uL Eosinophils # (Auto) 0.17 K/uL Basophils # (Auto) 0.01 K/uL RDW Standard Deviation 47.3 fL RDW Coefficient of Variation 16.0 % Immature Granulocyte % (Auto) 0.2 % Immature Granulocyte # (Auto) 0.01 K/uL Prothrombin Time 10.8 SECONDS Prothromb Time International Ratio 1.0 Activated Partial Thromboplast Time 26.7 SECONDS Partial Thromboplastin Ratio 1.0 Sodium Level 134 mmol/L Potassium Level 4.6 mmol/L Chloride Level 105 mmol/L Carbon Dioxide Level 23 mmol/L Anion Gap 6.0 mmol/L Blood Urea Nitrogen 23 mg/dl Creatinine 0.98 mg/dl Est Creatinine Clear Calc Drug Dose 92.5 ml/min Estimated GFR () 106.0 Estimated GFR (Non- 91.4 BUN/Creatinine Ratio 23.7 Random Glucose 297 mg/dl Calcium Level 9.2 mg/dl Phosphorus Level 3.2 mg/dl Magnesium Level 2.1 mg/dl Total Bilirubin 0.3 mg/dl Direct Bilirubin 0.2 mg/dl Aspartate Amino Transf (AST/SGOT) 106 U/L Alanine Aminotransferase (ALT/SGPT) 213 U/L Alkaline Phosphatase 307 U/L Total Protein 7.5 gm/dl Albumin 2.7 gm/dl Lipase 193 U/L Assessment and Plan (1) Gangrene Assessment & Plan: unclear if low bp due to infection or cardiac but resolved. No leukocytosis, no fevers, no tachycardia, less concerning for sepsis, however , with recent history of MRSA sepsis and infected back hardware, will continue abx and follow culture, currently pending. would suggest surgical eval for gangrene of foot as this could develop into systemic infection.
[2018-02-08 11:47] VITALS: BP 108/71; PULSE 85; TEMP 36.7; O2SAT 97
[2018-02-08 15:27] VITALS: BP 107/69; PULSE 94; TEMP 36.7; O2SAT 96
[2018-02-08 19:30] VITALS: BP 112/79; PULSE 97; TEMP 37; O2SAT 99
--- NOTE | 2018-02-08 19:31 | DIAGNOSTIC IMAGING REPORT ---
L ANKLE BRACHIAL INDEX LIMITED CLINICAL HISTORY: 48 years-old Male presenting with Dry gangrene. TECHNIQUE: Ankle brachial indices were obtained. COMPARISON: None. FINDINGS: Brachial: Right: 117 mmHg. Left: mmHg. Ankle (posterior tibial): Right: 116 mmHg. Left: 119 mmHg. Ankle (dorsalis pedis): Right: 120 mmHg. Left: 98 mmHg. Ankle/brachial index: Right: 0.99-1.03, Left: 0.84-1.02. Reference ranges: Normal CINTHYA 1.0-1.4; 0.9-0.99 borderline; less than 0.9 abnormal. IMPRESSION: Suspected abnormal left ankle-brachial index. Correlate clinically. Normal right CINTHYA. Electronically signed by: Luigi Alatorre M.D. 02/08/2018 7:29 PM Dictated Date/Time: 02/08/2018 7:28 PM
[2018-02-08] MEDS: TRAZODONE HCL 100 MG TAB PO SCH (21:00)
[2018-02-08] MEDS: TAMSULOSIN HCL 0.4 MG CAP PO SCH (21:00)
[2018-02-08] MEDS: ATORVASTATIN 20 MG TAB PO SCH (21:01)
--- NOTE | 2018-02-08 22:46 | Progress Note ---
Subjective Date of Service: Feb 08, 2018. Subjective Pt evaluation today including: conversation w/ patient, physical exam, lab review, review of studies, conversation w/ configuration consultant, review of inpatient medication list Pain: shooting pain in left foot and toes, especially at night PO Intake: adequate Voiding: no voiding problems patient feeling better since the time of admission, no fever/chills, vitals stable still with severe pain in left foot, especially at night he said that he met with a surgeon in [place] who had recommend amputation of his first three toes on left foot he didn't like the surgeon, did not go back ongoing issue with his toes for a few weeks, more gangrenous, more painful discussed case with Dr. Scales, recommended surgical consult for toes reviewed labs, WBC normal, Cr normal sugars high this morning, due to the fact that he was ordered DM type I diet, was getting too many carbs changed to type II diet, sugars better controlled Review of Systems Musculoskeletal: + joint pain (pain in first three toes on left foot) All Other Systems: Reviewed and Negative Medications Current Inpatient Medications Medications (Trade) Dose Ordered Sig/[place] Route Start Time Stop Time Status Last Admin Dose Admin Heparin Sodium (Porcine) (Heparin Sq 5000 Unit/0.5ml) 5,000 unit Q12H SQ 02/07/18 09:00 03/09/18 08:59 02/08/18 21:05 5,000 UNIT Lorazepam (Ativan Inj) 0.5 mg Q4H PRN IV 02/07/18 03:30 03/09/18 03:29 Miscellaneous Information (Icu Protocol For Hyperglycemia) 1 ea PRN PRN N/A 02/07/18 03:30 02/09/18 03:29 Vancomycin HCl 1000 mg/Sodium Chloride 270 ml @ 125 mls/hr Q12 IV 02/07/18 09:00 02/09/18 08:59 02/08/18 21:39 125 MLS/HR Vancomycin HCl (Consult) 1 ea UD PRN N/A 02/07/18 03:30 03/09/18 03:29 Piperacillin Sod/ Tazobactam Sod 3.375 gm/Dextrose 115 ml @ 28.75 mls/ hr Q8H IV 02/07/18 10:00 02/09/18 09:59 02/08/18 17:31 28.75 MLS/HR Miscellaneous Information (Consult) 1 ea UD PRN N/A 02/07/18 03:30 03/09/18 03:29 Ondansetron HCl (Zofran Inj) 4 mg Q6H PRN IV 02/07/18 03:30 03/09/18 03:29 Insulin Aspart (novoLOG ASPART) SLIDING SCALE If C... ACHS SC 02/07/18 06:45 03/09/18 06:44 02/08/18 21:06 7 UNITS Glucose (Glucose 40% Gel) 15-30 GRAMS 15 GRAMS... UD PRN PO 02/07/18 03:30 03/09/18 03:29 Glucose (Glucose Chew Tab) 4-8 Tablets 4 Tabl... UD PRN PO 02/07/18 03:30 03/09/18 03:29 Dextrose (Dextrose 50% 50ML Syringe) 25-50ML OF 50% DW IV FOR... UD PRN IV 02/07/18 03:30 03/09/18 03:29 Glucagon (Glucagon Inj) 1 mg UD PRN SQ 02/07/18 03:30 03/09/18 03:29 Carbohydrates (Carbohydrates For Hypoglycemia) 15-30 GRAMS 15 grams if BSG 54-69... UD PRN PO 02/07/18 03:30 03/09/18 03:29 Oxycodone HCl (Roxicodone Immediate Rel Tab) 15 mg Q6H PRN PO 02/07/18 03:45 02/21/18 03:44 02/08/18 07:56 15 MG Albuterol (Ventolin Hfa Inhaler) 2 puffs Q6H PRN INH 02/07/18 04:15 03/09/18 04:14 Aspirin (Ecotrin Tab) 81 mg DAILY PO 02/07/18 09:00 03/09/18 08:59 02/08/18 07:39 81 MG Atorvastatin Calcium (Lipitor Tab) 40 mg HS PO 02/07/18 21:00 03/09/18 20:59 02/08/18 21:01 40 MG Citalopram Hydrobromide (celeXA TAB) 20 mg DAILY PO 02/07/18 09:00 03/09/18 08:59 02/08/18 07:38 20 MG Gabapentin (Neurontin Tab) 600 mg TID PO 02/07/18 09:00 03/09/18 08:59 02/08/18 21:01 600 MG Quetiapine Fumarate (seroQUEL TAB) 200 mg QAM PO 02/07/18 09:00 03/09/18 08:59 02/08/18 07:40 200 MG Quetiapine Fumarate (seroQUEL TAB) 400 mg HS PO 02/07/18 21:00 03/09/18 20:59 02/08/18 21:00 400 MG Tamsulosin HCl (Flomax Cap) 0.4 mg HS PO 02/07/18 21:00 03/09/18 20:59 02/08/18 21:00 0.4 MG Ticagrelor (Brilinta Tab) 90 mg BID PO 02/07/18 09:00 03/09/18 08:59 02/08/18 21:00 90 MG Trazodone HCl (Desyrel Tab) 150 mg HS PO 02/07/18 21:00 03/09/18 20:59 02/08/18 21:00 150 MG Miscellaneous Information (Order Awaiting Action) 1 ea QS N/A 02/07/18 08:00 03/09/18 07:59 Lactobacillus Acidophilus (Floranex Tab) 4 tab TIDM PO 02/07/18 07:15 03/09/18 07:14 02/08/18 16:56 4 TAB Ferrous Sulfate (Feosol Tab) 325 mg QAM PO 02/07/18 09:00 03/09/18 08:59 02/08/18 07:38 325 MG Hydromorphone HCl (Dilaudid Inj) 1 mg Q2HWA PRN IV 02/07/18 09:45 02/21/18 09:44 02/08/18 21:07 1 MG Enteral Nutritional Formula (Boost Glucose Control) 1 can BIDM PO 02/07/18 16:30 03/09/18 16:29 02/08/18 16:56 1 CAN Objective Vital Signs Date Time Temp Pulse Resp B/P (MAP) Pulse Ox O2 Delivery O2 Flow Rate FiO2 02/08/18 20:23 Room Air 02/08/18 19:30 37.0 97 17 112/79 (90) 99 Room Air 02/08/18 15:27 36.7 94 18 107/69 (82) 96 Room Air 02/08/18 11:47 36.7 85 19 108/71 (83) 97 Room Air 02/08/18 08:03 36.8 81 18 99/63 (75) 96 Room Air 02/08/18 08:00 Room Air 02/08/18 04:08 36.9 84 15 114/81 (92) 96 Room Air 02/07/18 23:59 Room Air 02/07/18 23:33 36.8 77 18 104/63 (77) 98 Room Air Physical Exam General Appearance: no apparent distress, + thin Eyes: normal inspection, EOMI, sclerae normal ENT: normal ENT inspection, hearing grossly normal, pharynx normal Neck: supple, no adenopathy, no JVD, trachea midline Respiratory/Chest: chest non-tender, lungs clear, normal breath sounds, no respiratory distress, no accessory muscle use Cardiovascular: regular rate, rhythm, no edema, no gallop, no JVD, no murmur Abdomen: normal bowel sounds, non tender, soft, no organomegaly, no pulsatile mass Extremities: normal range of motion, non-tender, normal inspection, no pedal edema, no calf tenderness, pelvis stable Neurologic/Psychiatric: cloth piecer II-XII nml as tested, no motor/sensory deficits, alert, normal mood/affect, oriented x 3 Skin: + pertinent finding (gangrene of first three toes on left foot, tender, black, foot is warm, normal capillary refill) Laboratory Results Last 24 Hours Test 02/08/18 06:43 02/08/18 07:22 02/08/18 11:20 02/08/18 16:22 White Blood Count 5.68 K/uL Red Blood Count 3.94 M/uL Hemoglobin 10.7 g/dL Hematocrit 32.1 % Mean Corpuscular Volume 81.5 fL Mean Corpuscular Hemoglobin 27.2 pg Mean Corpuscular Hemoglobin Concent 33.3 g/dl Platelet Count 230 K/uL Mean Platelet Volume 11.4 fL Neutrophils (%) (Auto) 63.3 % Lymphocytes (%) (Auto) 26.6 % Monocytes (%) (Auto) 6.7 % Eosinophils (%) (Auto) 3.0 % Basophils (%) (Auto) 0.2 % Neutrophils # (Auto) 3.60 K/uL Lymphocytes # (Auto) 1.51 K/uL Monocytes # (Auto) 0.38 K/uL Eosinophils # (Auto) 0.17 K/uL Basophils # (Auto) 0.01 K/uL RDW Standard Deviation 47.3 fL RDW Coefficient of Variation 16.0 % Immature Granulocyte % (Auto) 0.2 % Immature Granulocyte # (Auto) 0.01 K/uL Prothrombin Time 10.8 SECONDS Prothromb Time International Ratio 1.0 Activated Partial Thromboplast Time 26.7 SECONDS Partial Thromboplastin Ratio 1.0 Sodium Level 134 mmol/L Potassium Level 4.6 mmol/L Chloride Level 105 mmol/L Carbon Dioxide Level 23 mmol/L Anion Gap 6.0 mmol/L Blood Urea Nitrogen 23 mg/dl Creatinine 0.98 mg/dl Est Creatinine Clear Calc Drug Dose 92.5 ml/min Estimated GFR () 106.0 Estimated GFR (Non- 91.4 BUN/Creatinine Ratio 23.7 Random Glucose 297 mg/dl Calcium Level 9.2 mg/dl Phosphorus Level 3.2 mg/dl Magnesium Level 2.1 mg/dl Total Bilirubin 0.3 mg/dl Direct Bilirubin 0.2 mg/dl Aspartate Amino Transf (AST/SGOT) 106 U/L Alanine Aminotransferase (ALT/SGPT) 213 U/L Alkaline Phosphatase 307 U/L Total Protein 7.5 gm/dl Albumin 2.7 gm/dl Lipase 193 U/L Bedside Glucose 299 mg/dl 279 mg/dl 258 mg/dl Test 02/08/18 20:34 Bedside Glucose 180 mg/dl Assessment and Plan 48 yo male transferred from [place] for septic shock, sour Sepsis, no evidence of septic shock at time of arrival at hospital-- possible sources included urine, infected hardware in lumbar spine, left toes with gangrene patient was transferred on Levophed but pressures were 120 systolic on arrival, titrated off of Levophed immediately and never required pressors he was adequately fluid resuscitated at [facility] with 3L normal saline WBC normal, no fevers UA with no signs of infection prior to this admission, he was treated for infected seroma of lumbar spine, grew MRSA treated with Vancomycin via PICC line and was then transitioned to Doxycycline chronically for suppression of infection, was still taking prior to admission foot x-ray did not show any signs of bone involvement in left toes continue Vancomycin and Zosyn for now ID following, will give final treatment recommendations Gangrene of 1st, 2nd and 3rd toes on left foot present for weeks, getting worse, has severe neuropathic pain at times asked him if he had had vascular studies done on his left leg, he said he could not remember CINTHYA today shows likely decreased flow in left leg consult vascular surgery for their recommendations CAD/hypertension/STEMI history/coronary artery stents 4/chronically elevated troponin-- Continue aspirin 81 mg daily and Brilinta 90 mg p.o. twice daily. Hold ramipril 5 mg daily and Toprol-XL 25 mg daily due to low normal blood pressures Diabetes mellitus-- Novolog coverage, DM type II diet Hyperlipidemia-- Continue atorvastatin 40 mg at bedtime. Depression-- Continue Celexa 20 mg daily, Seroquel and trazodone. COPD-- continue pro-air HFA. Chronic pain syndrome-- Continue gabapentin 600 mg p.o., but increased from twice daily to 3 times daily with extra dose now, and oxycodone 15 mg p.o. every 6 hours as needed. Dilaudid IV added today since pain was so severe, provided more relief BPH-- Continue Flomax 0.4 mg p.o. daily, but moved to bedtime. Appetite stimulation-- Continue Megace.
[2018-02-09] VITALS (7 sets, daily range): BP systolic 107–125; BP diastolic 63–79; PULSE 92–103; TEMP 36.7–37.5; O2SAT 96–98; Ht 182.9 cm; Wt 69.3 kg
[2018-02-09] MEDS: HYDROmorphone INJ 0.5 MG/0.5 ML SYR IV PRN ×11 (01:30→23:05)
[2018-02-09] MEDS: PIPERACILL/TAZOBAC IV 3.375 GM in DEXTROSE 5% 100ML 100 ML IV SCH ×3 (01:31→19:56)
[2018-02-09 07:07] LABS: BASO % 0.1 %; BASO ABS # 0.01 K/uL (0-0.2); EOS % 2.3 %; EOS ABS # 0.16 K/uL (0-0.5); HEMOGLOBIN 10.8 g/dL (14.0-18.0); IG# 0.01 K/uL (0.00-0.02); LYMPH % 22.9 %; LYMPH ABS # 1.58 K/uL (1.2-3.4); MEAN CELL VOLUME 81.5 fL (80-100); MEAN CORPUSCULAR HEMOGLOBIN 26.7 pg (25-34); MEAN CORPUSCULAR HGB CONC 32.7 g/dl (32-36); MEAN PLATELET VOLUME 11.3 fL (7.4-10.4); MONO % 5.4 %; MONO ABS # 0.37 K/uL (0.11-0.59); NEUT % 69.2 %; NEUT ABS # 4.77 K/uL (1.4-6.5); PLATELET COUNT 243 K/uL (130-400); RED CELL DISTRIBUTION WIDTH CV 16.2 % (11.5-14.5); RED CELL DISTRIBUTION WIDTH SD 48.3 fL (36.4-46.3)
--- NOTE | 2018-02-09 07:16 | DIAGNOSTIC IMAGING REPORT ---
CHEST ONE VIEW PORTABLE HISTORY: 48 years-old Male sepsis acute sepsis COMPARISON: Chest radiograph 02/08/2018 TECHNIQUE: Portable AP view the chest FINDINGS: Cardiac mediastinal and hilar silhouettes are within normal limits. Mild right hemidiaphragmatic elevation. Unchanged 5 mm metallic density focus overlies the right lung base. There is no pneumothorax, pleural effusion, focal airspace consolidation or overt pulmonary edema. Bones of the chest appear grossly intact. IMPRESSION: No acute process. The above report was generated using voice recognition software. It may contain grammatical, syntax or spelling errors. Electronically signed by: Rod Randle M.D. 02/09/2018 7:15 AM Dictated Date/Time: 02/09/2018 7:14 AM
[2018-02-09 07:44] LABS: ALBUMIN 2.7 gm/dl (3.4-5.0); CALCIUM 9.1 mg/dl (8.5-10.1); CREATININE 0.94 mg/dl (0.60-1.40); POTASSIUM 4.6 mmol/L (3.5-5.1); TOTAL PROTEIN 7.7 gm/dl (6.4-8.2)
[2018-02-09] MEDS: BOOST GLUCOSE CONTROL VANILLA PO SCH ×2 (07:45→16:55)
[2018-02-09] MEDS: GABAPENTIN 600 MG TAB PO SCH ×3 (07:48→20:01)
[2018-02-09] MEDS: LACTOBACILLUS ACIDOPHILUS (FLORANEX) TAB PO SCH ×3 (07:48→16:47)
[2018-02-09] MEDS: TICAGRELOR 90 MG TAB PO SCH ×2 (07:49→20:01)
[2018-02-09] MEDS: QUETIAPINE FUMARATE 200 MG TAB PO SCH ×2 (07:49→20:58)
[2018-02-09] MEDS: CITALOPRAM 20 MG TAB PO SCH (07:49)
[2018-02-09] MEDS: ASPIRIN 81 MG ECTAB PO SCH (07:50)
[2018-02-09] MEDS: FERROUS SULFATE 325 MG TAB PO SCH (07:50)
[2018-02-09] MEDS: INSULIN ASPART 100 UNITS/ML 3 ML PEN SC SCH ×4 (07:56→21:07)
[2018-02-09] MEDS: HEPARIN SOD 5000 UNIT/0.5 ML CARP SQ SCH ×2 (07:57→21:06)
[2018-02-09 08:33] LABS: HEPATITIS A IGM TC 51813E NON-REACTIVE (NON-REACTIVE); HEPATITIS B CORE IGM TC51854R NON-REACTIVE (NON-REACTIVE)
[2018-02-09] MEDS: VANCOMYCIN IV 1,000 MG in SODIUM CHLORIDE 0.9% 250ML 250 ML IV SCH ×2 (08:47→20:54)
[2018-02-09] MEDS: INSULIN GLARGINE SOLOSTAR 100 UNITS/ML 3 ML PEN SC SCH (09:50)
[2018-02-09 10:12] LABS: HEMOGLOBIN A1C 8.4 % (4.5-5.6)
--- NOTE | 2018-02-09 11:19 | DIAGNOSTIC IMAGING REPORT ---
DUPLEX AORTA/IVC/ILIACS ULTRASOUND CLINICAL HISTORY: Peripheral arterial disease. COMPARISON STUDY: None. FINDINGS: Real-time sonographic imaging of the abdomen was performed to evaluate the aorta and iliac arteries. However, the bowel is filled with gas which obscures the abdominal and pelvic vessels. Specifically, the aorta, iliacs, IVC, and mesenteric vessels were not identified. IMPRESSION: Nondiagnostic evaluation of the abdominal and pelvic vessels due to overlying bowel gas. Electronically signed by: Bertin Moser M.D. 02/09/2018 11:18 AM Dictated Date/Time: 02/09/2018 11:16 AM
--- NOTE | 2018-02-09 12:23 | DIAGNOSTIC IMAGING REPORT ---
ART DOP LOWER EXT BILAT CLINICAL HISTORY: PAD COMPARISON STUDY: None FINDINGS: Real-time as well as Doppler evaluation of the arterial structures of the lower legs was performed. Waveforms are triphasic throughout. Velocity characteristics are unremarkable. There are findings of considerable increase in velocity of the left itself pedis artery. There appears to be occlusion of the right dorsalis pedis artery. IMPRESSION: 1. High-grade stenosis left dorsalis pedis artery. 2. Occlusion right dorsalis pedis artery with partial collateral flow 3. Remaining arterial structures show no significant stenotic process. The above report was generated using voice recognition software. It may contain grammatical, syntax or spelling errors. Electronically signed by: Vaughn Duran M.D. 02/09/2018 12:22 PM Dictated Date/Time: 02/09/2018 12:18 PM
[2018-02-09] MEDS ORDERED: METOPROLOL SUCC 25MG EXT REL TAB PO ONE (12:28)
--- NOTE | 2018-02-09 12:43 | Hospitalist Progress Note ---
Hospitalist Progress Note Date of Service Feb 09, 2018. Subjective Pt evaluation today including: conversation w/ patient, conversation w/ business management consultant ([facility], cardiology) Patient reports a lot of pain in the left toes. Denies chest pain or shortness of breath. Denies abdominal pain. He is tolerating p.o. and denies nausea or vomiting. Denies fevers or chills at home prior to admission. He reports his toes turned black shortly after his admission for his heart attack and stent placement. He also reports kicking his toes by accident into a banister on the stairs when he was very sick prior to his heart attack. Patient reports his blood sugars at home have usually been in the low 100s, but increased suddenly to the 500s on the day of admission which is unusual for him. Telemetry here with normal sinus rhythm Discussed the plan of care at length with him. Later I came back in the day to inform him of his MRI results which were positive for osteomyelitis and great first MTP septic joint. The patient took off his heart monitor and said he thinks his vital signs are fine and he does not want to wear it anymore. He is agreeable to transfer to the medical/surgical floor. All Other Systems: Reviewed and Negative Objective Vital Signs Date Time Temp Pulse Resp B/P (MAP) Pulse Ox O2 Delivery O2 Flow Rate FiO2 02/09/18 08:00 Room Air 02/09/18 07:11 36.9 96 15 111/74 (86) 98 Room Air 02/09/18 03:18 36.8 94 20 114/76 (89) 97 Room Air 02/09/18 00:10 37.0 93 15 118/78 (91) 97 Room Air 02/08/18 20:23 Room Air 02/08/18 19:30 37.0 97 17 112/79 (90) 99 Room Air 02/08/18 15:27 36.7 94 18 107/69 (82) 96 Room Air Physical Exam General Appearance: no apparent distress, + thin Eyes: normal inspection, sclerae normal ENT: hearing grossly normal, pharynx normal Neck: trachea midline Respiratory/Chest: lungs clear, normal breath sounds, no respiratory distress, no accessory muscle use Cardiovascular: regular rate, rhythm, no edema, no gallop, no JVD, no murmur Abdomen: normal bowel sounds, non tender, soft, no organomegaly, no pulsatile mass Extremities: no pedal edema, no calf tenderness, + pertinent finding (Left great toe, second and third toes with black eschar without granulation tissue surrounding, minimal surrounding erythema, no drainage, positive tenderness to palpation, he has palpable 2+ femoral pulses bilaterally, 2+ popliteal pulses bilaterally, and 2+ dorsalis pedis pulses bilaterally) Neurologic/Psychiatric: alert, normal mood/affect, oriented x 3 Skin: warm/dry Laboratory Results Last 24 Hours Test 02/08/18 16:22 02/08/18 20:34 02/09/18 06:52 02/09/18 07:15 Bedside Glucose 258 mg/dl 180 mg/dl 233 mg/dl White Blood Count 6.90 K/uL Red Blood Count 4.05 M/uL Hemoglobin 10.8 g/dL Hematocrit 33.0 % Mean Corpuscular Volume 81.5 fL Mean Corpuscular Hemoglobin 26.7 pg Mean Corpuscular Hemoglobin Concent 32.7 g/dl Platelet Count 243 K/uL Mean Platelet Volume 11.3 fL Neutrophils (%) (Auto) 69.2 % Lymphocytes (%) (Auto) 22.9 % Monocytes (%) (Auto) 5.4 % Eosinophils (%) (Auto) 2.3 % Basophils (%) (Auto) 0.1 % Neutrophils # (Auto) 4.77 K/uL Lymphocytes # (Auto) 1.58 K/uL Monocytes # (Auto) 0.37 K/uL Eosinophils # (Auto) 0.16 K/uL Basophils # (Auto) 0.01 K/uL RDW Standard Deviation 48.3 fL RDW Coefficient of Variation 16.2 % Immature Granulocyte % (Auto) 0.1 % Immature Granulocyte # (Auto) 0.01 K/uL Sodium Level 138 mmol/L Potassium Level 4.6 mmol/L Chloride Level 106 mmol/L Carbon Dioxide Level 23 mmol/L Anion Gap 9.0 mmol/L Blood Urea Nitrogen 22 mg/dl Creatinine 0.94 mg/dl Est Creatinine Clear Calc Drug Dose 95.2 ml/min Estimated GFR () 111.5 Estimated GFR (Non- 96.2 BUN/Creatinine Ratio 23.3 Random Glucose 239 mg/dl Estimated Average Glucose 194 mg/dl Hemoglobin A1c 8.4 % Calcium Level 9.1 mg/dl Iron Level 56 mcg/dl Total Iron Binding Capacity 302 mcg/dl Transferrin 235 mg/dl Transferrin % Saturation 17 % Ferritin 327.0 ng/ml Total Bilirubin 0.5 mg/dl Direct Bilirubin 0.2 mg/dl Aspartate Amino Transf (AST/SGOT) 89 U/L Alanine Aminotransferase (ALT/SGPT) 200 U/L Alkaline Phosphatase 352 U/L Total Protein 7.7 gm/dl Albumin 2.7 gm/dl Test 02/09/18 09:43 02/09/18 11:20 Hepatitis C Antibody NEG Bedside Glucose 265 mg/dl Assessment and Plan This pt is a 48 yo male with a h/o DMII, smoking, CAD s/p 4 PURVI in 12/2017, ischemic CM with EF 40%, HTN, dyslipidemia, depression, COPD, chronic neuropathic pain, transferred from [place] for hypotensive shock-septic vs hypovolemic Hypotensive shock--septic from UTI or toe infection vs hypovolemic from hyperosmolar hyperglycemia. Possible sources included urine, infected hardware in lumbar spine, left toes with gangrene. Had abscess at back surgical site in November that was I&D'd and treated with IV abx for weeks, followed by po doxy on which he continues. No signs of infection at the back site now, no pain. Very well could be his left toes which are gangrenous, painful. Toes gangrenous possibly from stubbing toes just prior to admission for VT, plus small vessel disease, ?septic emboli from previous sepsis with MRSA from back? Coag neg Staph on wound cx here but dry gangrene so just a skin culture essentially Had a NEHEMIAH done at [place] in 12/2017 and was on IV abx prolonged-question if had endocarditis then No leukocytosis, no fevers now, toes appear to not be healing. UA here is normal -now off pressors, BPs fine -ok to restart Toprol and ramipril -request BCxs and Ur cx from [place] -request NEHEMIAH record from [facility] -foot x-ray did not show any signs of bone involvement in left toes--> check MRI left forefoot -check ESR, Crp -continue Vancomycin and Zosyn for now -ID following, will give final treatment recommendations Gangrene of 1st, 2nd and 3rd toes on left foot-present for weeks, getting worse , has severe neuropathic pain at times. CINTHYA today shows likely decreased flow in left leg, Arterial Dopplers without significant blockage, has palpable pulses femoral/popliteal/pedal bilat -consult vascular surgery for their recommendations-appreciated -check MRI foot as above -may need amputation of toes -no vascular intervention needed, but may need amputation -needs Cardiology preop assessment given recent PURVI placement CAD s/p 4 PURVI for recent STEMI/HTN/elevated troponin/Ischemic CM/Chronic systolic CHF--last EF 40% as per pt-need records to confirm Continue aspirin 81 mg daily and Brilinta 90 mg p.o. twice daily. Ok to restart ramipril 5 mg daily and Toprol-XL 25 mg daily due to low normal blood pressures Diabetes mellitus II, on chcf insulin and metformin at home, not well controlled, HgbA1C here today 8.4%. With glucose in the 500s the day of admission and likely had severe dehydration and hypovolemia from hyperglycemia. Resuscitated with 3 L NS at [facility] Continues to have glucose readings in the 200s here, is only on SSI -add lantus 12 units daily today -continue SSI and tightened correction factor -appreciate CDE consult Hyperlipidemia--recent PURVI placed fo severe CAD Continue atorvastatin 40 mg at bedtime, however with LFTs up, may need to hold for elevated LFTS Elevated LFTs- AST,ALT,ALk Phos all elevated, TBili normal. All trending downward today -Liver US with fatty liver. Could be secondary to doxy, statin? Does not seem to have acute CHF causing hepatic congestion -trend LFTs -continue doxy and statin for now given recent infection and STEMI Bipolar d/o-stable Continue Celexa 20 mg daily, Seroquel and trazodone. COPD--stable, quit smoking 1 month ago continue pro-air HFA. Chronic pain syndrome-- Continue gabapentin 600 mg p.o., but increased from twice daily to 3 times daily , and oxycodone 15 mg p.o. every 6 hours as needed. Dilaudid IV prn severe pain BPH-- Continue Flomax 0.4 mg p.o. daily, but moved to bedtime. Appetite stimulation-- Continue Megace. Proph-heparin SQ Dispo-remain on tele
--- NOTE | 2018-02-09 12:55 | Surgery Consultation ---
Consultation Date of Service Feb 09, 2018. Chief Complaint gangrene L toes 1-3 History of Present Illness The patient is a 48 year old male with complicated medical hx + for recent W[place] and catheterization with stent insertion x 4 in november 2017, DMII, spinal problems s/p spinal fusion in November 2017, admitted with hypotension and possible sepsis, seen in consultation today for gangrene of L 1-3 toes. Pt states he struck his toes on the stair railing at home as he was going down steps to go to hospital for WV in November. States the toes turned black shortly after his cardiac catheterizations and have continued to worsen. Admits severe pain in toes. Denies claudication, but states has been generally weak and not walking much since his WV and back surgeries. Per pt, did have drainage of a spinal abscess while in hospital for W[place]. Denies MONGE, fever, chills, chest pain, SOB, abd pain, N/V, other complaints. Vitals Vital Signs Past 12 Hours Date Time Temp Pulse Resp B/P (MAP) Pulse Ox O2 Delivery O2 Flow Rate FiO2 02/09/18 08:00 Room Air 02/09/18 07:11 36.9 96 15 111/74 (86) 98 Room Air 02/09/18 03:18 36.8 94 20 114/76 (89) 97 Room Air Allergies Coded Allergies: Morphine (Verified Allergy, Intermediate, RASH, 02/07/18) Acetaminophen (Verified Adverse Reaction, Intermediate, GI UPSET, STILL TAKES IT, 02/07/18) Prochlorperazine (Verified Adverse Reaction, Intermediate, ANXIOUS/ IRRITABLE, 02/07/18) Promethazine (Verified Adverse Reaction, Intermediate, ANXIOUS/IRRITABLE, 02/09/18) Home Medications Scheduled Aspirin (Aspirin Ec), 81 MG PO DAILY Atorvastatin (Lipitor), 40 MG PO DAILY Citalopram Hydrobromide (Celexa), 20 MG PO DAILY Doxycycline Hyclate (Vibramycin), 100 MG PO BID Ferrous Sulfate (Kp Ferrous Sulfate), 325 TAB PO DAILY Gabapentin (Neurontin), 600 MG PO BID Lactobacillus Acidophilus (Lactinex), 2 TAB PO BID Megestrol Acetate (Appetite) (Megestrol Acetate), 625 MG PO DAILY Metoprolol Succinate (Toprol Xl), 25 MG PO DAILY Quetiapine Fumarate (Seroquel), 200 MG PO QAM Quetiapine Fumarate (Seroquel), 400 MG PO HS Ramipril (Ramipril), 5 MG PO DAILY Tamsulosin Hcl (Flomax), 0.4 MG PO DAILY Ticagrelor (Brilinta), 90 MG PO BID Trazodone Hcl (Trazodone), 150 MG PO HS Scheduled PRN Albuterol Hfa (Ventolin Hfa), 2 PUFFS INH Q6H PRN for SOB/Wheezing Oxycodone Ir (Roxicodone Ir), 15 MG PO Q6H PRN for Pain Problem List Medical Problems: (1) Gangrene (2) Septic shock Surgical / Medical History Hx Cardiac Surgery: No Hx Abdominal Surgery: Yes (Gallbladder) Hx Cancer Surgery: No Hx Thoracic Surgery: No Hx Orthopedic: Yes (Back ) Hx Urinary Tract Surgery: No HX Other Surgery: No Past Medical/Surgical History: Angioplasty/Stent, Diabetes, Heart Disease, Hypertension, W[place], Other Psy. Disorders Family History + HTN Social History Smoking Status: Current Every Day Smoker Hx Tobacco Use In Past Year?: No Hx Alcohol Use - Type & Amnt: No Hx Substance Use -Type & Amnt: No Review of Systems Constitutional: + malaise, No chills, No fever Skin: + change in color Eyes: No visual changes ENMT: No sore throat Respiratory: No cough, No PARRY, No short of breath Cardiovascular: + syncope, No chest pain, No edema, No intermittent claudication Gastrointestinal: No abdominal pain, No nausea, No vomiting Neurologic: + dizziness, + weakness, + lethargy, No headache Physical Exam Constitutional: General Apperance: well-nourished, well-developed Level of Distress: NAD, acutely ill, chronically ill Psychiatric: Mental Status: active & alert, normal mood, normal affect Orientation: oriented except where noted, to time, to place, to person Memory: recent memory normal, remote memory normal Head: normocephalic, atraumatic Eyes: EOM: EOMI ENMT: normal ENT inspection, hearing grossly normal Neck: supple, trachea midline Lungs: Respiratory effort: no dyspnea Auscultation: no rales/crackles, no rhonchi Cardiovascular: Apical Impulse: not displaced Heart Auscultation: RRR, no rubs, no gallops Peripheral Pulses: Pulses: full and equal, in all extremities except if noted Bruits: none appreciated Carotid Pulse: normal on the left, normal on the right Brachial Pulses: normal on the left, normal on the right Radial Pulse: normal on the left, normal on the right Femoral Pulse: normal on the left, normal on the right Posterior Tibialis Pulse: decreased on the left, decreased on the right Dorsalis Pedis Pulse: decreased on the left, decreased on the right Abdomen: Bowel Sounds: normal Inspection & Palpation: soft, non-distended, no tenderness, guarding & rebound Musculoskeletal: normal strength (5/5 throughout), normal tone Extremities: Upper Right: no cyanosis, no edema, no varicosities Upper Left: no cyanosis, no edema, no varicosities Lower Right: no cyanosis, no edema, no varicosities, no palpable cord Lower Left: no edema, no varicosities, gangrene (distal end of toes # 1-3, dry, no odor.), pertinent finding (remaining toes with brisk cap refill) Neurologic: Cranial Nerves: grossly intact Sensation: grossly intact Assessment and Plan ASSESSMENT and PLAN: Gangrene L 1-3 toes Pt's arterial US reviewed by Dr Lane, pt does not appear to have arterial disease that would be amenable to treatment. Will discuss with Dr Lane whether toes will require amputation. Discussed with Dr Ocampo as well, she plans to order an MRI of foot to r/o osteo.
[2018-02-09] MEDS ORDERED: GADAVIST IV PRN (14:30)
--- NOTE | 2018-02-09 14:31 | DIAGNOSTIC IMAGING REPORT ---
L LOWER EXT NONJOINT COMBO CLINICAL HISTORY: 48 years-old Male presenting with left gangrenous toes, black great toe and middle toe for one month, history of diabetes, history of injury. TECHNIQUE: Multisequence, multiplanar MR imaging of the left forefoot was performed before and after the administration of intravenous contrast. IV contrast: 6.5 mL of Gadavist. COMPARISON: Plain radiograph from 02/07/2018. FINDINGS: Localizer images: Unremarkable. Extensive T1 hypointense bone marrow signal abnormality in the distal phalanx of the first toe. There is also similar signal abnormality in the distal metaphysis of the proximal phalanx of the first toe with minimal sparing of the diaphysis. T2 hyperintensity with heterogeneous T1 hypointensity evident at the first metatarsophalangeal joint. No significant fluid within the first metatarsophalangeal joint. The second and third toes also demonstrate similar degrees of T1 hypointense, T2 hyperintense bone marrow signal changes. These extensively involve the middle phalanges and the distal third phalanx. The proximal phalanges of these toes are less extensively involved, with bone marrow signal changes limited to the heads/distal metaphyses. Focal T2 hyperintense, T1 hypointense bone marrow signal in the mid subchondral portion of the second through fifth metatarsal heads. Extensive T2 hyperintensity of the musculature, nonspecific. No soft tissue abscess. IMPRESSION: 1. Extensive bone marrow signal abnormalities in the phalanges of the first toe concerning for osteomyelitis. There is also questionable septic arthritis at the first metatarsophalangeal joint. 2. Bone marrow signal abnormalities in the second and third toes are also concerning for osteomyelitis with relative sparing of the proximal portions of the proximal phalanges. 3. Signal abnormalities in the second through fifth metatarsal heads may relate to osteonecrosis/subchondral fractures. Electronically signed by: Luigi Alatorre M.D. 02/09/2018 2:30 PM Dictated Date/Time: 02/09/2018 2:20 PM
--- NOTE | 2018-02-09 15:21 | Progress Note ---
Subjective Date of Service: Feb 09, 2018. Subjective pt remains afebrile. s/p vascular eval. MRI pending. remains on abx, blood cultures negative, no leukocytosis Objective Vital Signs Date Time Temp Pulse Resp B/P (MAP) Pulse Ox O2 Delivery O2 Flow Rate FiO2 02/09/18 15:17 36.7 103 20 125/79 (94) 97 Room Air 02/09/18 11:15 36.9 92 15 107/63 (78) 98 Room Air 02/09/18 08:00 Room Air 02/09/18 07:11 36.9 96 15 111/74 (86) 98 Room Air 02/09/18 03:18 36.8 94 20 114/76 (89) 97 Room Air 02/09/18 00:10 37.0 93 15 118/78 (91) 97 Room Air 02/08/18 20:23 Room Air 02/08/18 19:30 37.0 97 17 112/79 (90) 99 Room Air 02/08/18 15:27 36.7 94 18 107/69 (82) 96 Room Air Laboratory Results Item Value Date Time Blood Culture - Preliminary Resulted 02/07/18 0728 Blood NO GROWTH TO DATE. Blood Culture - Preliminary Resulted 02/07/18 0720 Blood NO GROWTH TO DATE. Last 24 Hours Test 02/08/18 16:22 02/08/18 20:34 02/09/18 06:52 02/09/18 07:15 Bedside Glucose 258 mg/dl 180 mg/dl 233 mg/dl White Blood Count 6.90 K/uL Red Blood Count 4.05 M/uL Hemoglobin 10.8 g/dL Hematocrit 33.0 % Mean Corpuscular Volume 81.5 fL Mean Corpuscular Hemoglobin 26.7 pg Mean Corpuscular Hemoglobin Concent 32.7 g/dl Platelet Count 243 K/uL Mean Platelet Volume 11.3 fL Neutrophils (%) (Auto) 69.2 % Lymphocytes (%) (Auto) 22.9 % Monocytes (%) (Auto) 5.4 % Eosinophils (%) (Auto) 2.3 % Basophils (%) (Auto) 0.1 % Neutrophils # (Auto) 4.77 K/uL Lymphocytes # (Auto) 1.58 K/uL Monocytes # (Auto) 0.37 K/uL Eosinophils # (Auto) 0.16 K/uL Basophils # (Auto) 0.01 K/uL RDW Standard Deviation 48.3 fL RDW Coefficient of Variation 16.2 % Immature Granulocyte % (Auto) 0.1 % Immature Granulocyte # (Auto) 0.01 K/uL Erythrocyte Sedimentation Rate 71 mm/hr Sodium Level 138 mmol/L Potassium Level 4.6 mmol/L Chloride Level 106 mmol/L Carbon Dioxide Level 23 mmol/L Anion Gap 9.0 mmol/L Blood Urea Nitrogen 22 mg/dl Creatinine 0.94 mg/dl Est Creatinine Clear Calc Drug Dose 95.2 ml/min Estimated GFR () 111.5 Estimated GFR (Non- 96.2 BUN/Creatinine Ratio 23.3 Random Glucose 239 mg/dl Estimated Average Glucose 194 mg/dl Hemoglobin A1c 8.4 % Calcium Level 9.1 mg/dl Iron Level 56 mcg/dl Total Iron Binding Capacity 302 mcg/dl Transferrin 235 mg/dl Transferrin % Saturation 17 % Ferritin 327.0 ng/ml Total Bilirubin 0.5 mg/dl Direct Bilirubin 0.2 mg/dl Aspartate Amino Transf (AST/SGOT) 89 U/L Alanine Aminotransferase (ALT/SGPT) 200 U/L Alkaline Phosphatase 352 U/L C-Reactive Protein 4.58 mg/dl Total Protein 7.7 gm/dl Albumin 2.7 gm/dl Test 02/09/18 09:43 02/09/18 11:20 Hepatitis C Antibody NEG Bedside Glucose 265 mg/dl Assessment and Plan (1) Gangrene Assessment & Plan: unclear if low bp due to infection or cardiac but resolved. No leukocytosis, no fevers, no tachycardia, less concerning for sepsis, however , with recent history of MRSA sepsis and infected back hardware, will continue abx and follow culture, currently pending. would suggest surgical eval for gangrene of foot as this could develop into systemic infection.
--- NOTE | 2018-02-09 17:16 | Cardiology Consultation ---
Cardiology Consultation Date of Consultation: Feb 09, 2018. Requesting Physician: Damaris Reason for Consultation: Preoperative evaluation Pt evaluation today including: conversation w/ patient, physical exam, chart review, lab review, review of studies, review of inpatient medication list, conversation w/ attending History of Present Illness The patient is a 48-year-old gentleman with a history of diabetes mellitus and recent admission to [facility] in [place]. It seems the patient recently suffered a syncopal episode was found to be markedly hypotensive. He was suspected to have both dehydration and sepsis. Based on the critical nature of his illness he was transferred to [facility] for more advanced care. He initially required some pressor support and volume supplementation. He was administered antibiotics as well and his condition improved. One current concern is a source of infection. The patient did have a seroma removed on his back several weeks ago. He is also noted to have gangrenous toes on the left foot. He will require amputation of several toes and we were asked to provide some preoperative cardiac evaluation. It seems the patient has trouble started several weeks ago within the infection subsequent to a seroma drainage. The patient became somewhat weaker and was noted to suffer from syncope. Leading up to that event he had notable elevations in his home blood sugar readings. In November of this year the patient also appears to have suffered a myocardial infarction. He remembers being severely weak and unable to ambulate. Patient reports being found by his brother in taken to the hospital where he was discovered to have had a heart attack. He underwent percutaneous intervention with several stents and was in his convalescent. When and he developed his more recent trouble. Leading up to his heart attack in November the patient had been fairly functional individual. He did report chronic infection of his toes leading up to his heart attack. He believes this could been related to an injury he suffered on his stairs at home. Otherwise he is able to perform moderate activity such as mowing lawn and doing housework. He did not report any symptoms of chest discomfort leading up to his myocardial infarction. He has not had chest discomfort since that time. He reports having had asthma at times but generally is not limited by breathing difficulty. He does not report orthopnea or paroxysmal nocturnal dyspnea. He is able to ascend stairs at home currently without limiting dyspnea. He has not noticed any significant weight gain. He has not had lower extremity edema. He has not been aware of any palpitations. He did not report dizziness or lightheadedness. He has not suffered syncope. Past Medical/Surgical History Diabetes mellitus Gangrenous toes Nephrolithiasis Gastroesophageal reflux disease Asthma Hyperlipidemia Diabetic neuropathy Spinal stenosis Bipolar disorder Past surgical history: Cholecystectomy Lumbar fusion Right knee replacement Umbilical hernia repair Family History Brother without premature coronary disease Social History Smoking Status: Current Every Day Smoker History of Alcohol Use: No Currently unemployed. Lives with his Review of Systems Patient denied actual fevers or chills. He claims to be eating better recently. He continues to have an element of fatigue since his discharge from the hospital earlier this year. He has pain the site of his toe infections All Other Systems: Reviewed and Negative Allergies Coded Allergies: Morphine (Verified Allergy, Intermediate, RASH, 02/07/18) Acetaminophen (Verified Adverse Reaction, Intermediate, GI UPSET, STILL TAKES IT, 02/07/18) Prochlorperazine (Verified Adverse Reaction, Intermediate, ANXIOUS/ IRRITABLE, 02/07/18) Promethazine (Verified Adverse Reaction, Intermediate, ANXIOUS/IRRITABLE, 02/09/18) Medications Current Inpatient Medications Medications (Trade) Dose Ordered Sig/Lavonne Route Start Time Stop Time Status Last Admin Dose Admin Heparin Sodium (Porcine) (Heparin Sq 5000 Unit/0.5ml) 5,000 unit Q12H SQ 02/07/18 09:00 03/09/18 08:59 02/09/18 07:57 5,000 UNIT Lorazepam (Ativan Inj) 0.5 mg Q4H PRN IV 02/07/18 03:30 03/09/18 03:29 Vancomycin HCl 1000 mg/Sodium Chloride 270 ml @ 125 mls/hr Q12 IV 02/07/18 09:00 02/17/18 08:59 02/09/18 08:47 125 MLS/HR Vancomycin HCl (Consult) 1 ea UD PRN N/A 02/07/18 03:30 03/09/18 03:29 Piperacillin Sod/ Tazobactam Sod 3.375 gm/Dextrose 115 ml @ 28.75 mls/ hr Q8H IV 02/07/18 10:00 02/17/18 09:59 02/09/18 10:59 28.75 MLS/HR Miscellaneous Information (Consult) 1 ea UD PRN N/A 02/07/18 03:30 03/09/18 03:29 Ondansetron HCl (Zofran Inj) 4 mg Q6H PRN IV 02/07/18 03:30 03/09/18 03:29 Insulin Aspart (novoLOG ASPART) SLIDING SCALE If C... ACHS SC 02/07/18 06:45 03/09/18 06:44 02/09/18 16:57 10 UNITS Glucose (Glucose 40% Gel) 15-30 GRAMS 15 GRAMS... UD PRN PO 02/07/18 03:30 03/09/18 03:29 Glucose (Glucose Chew Tab) 4-8 Tablets 4 Tabl... UD PRN PO 02/07/18 03:30 03/09/18 03:29 Dextrose (Dextrose 50% 50ML Syringe) 25-50ML OF 50% DW IV FOR... UD PRN IV 02/07/18 03:30 03/09/18 03:29 Glucagon (Glucagon Inj) 1 mg UD PRN SQ 02/07/18 03:30 03/09/18 03:29 Carbohydrates (Carbohydrates For Hypoglycemia) 15-30 GRAMS 15 grams if BSG 54-69... UD PRN PO 02/07/18 03:30 03/09/18 03:29 Oxycodone HCl (Roxicodone Immediate Rel Tab) 15 mg Q6H PRN PO 02/07/18 03:45 02/21/18 03:44 02/08/18 07:56 15 MG Albuterol (Ventolin Hfa Inhaler) 2 puffs Q6H PRN INH 02/07/18 04:15 03/09/18 04:14 Aspirin (Ecotrin Tab) 81 mg DAILY PO 02/07/18 09:00 03/09/18 08:59 02/09/18 07:50 81 MG Atorvastatin Calcium (Lipitor Tab) 40 mg HS PO 02/07/18 21:00 03/09/18 20:59 02/08/18 21:01 40 MG Citalopram Hydrobromide (celeXA TAB) 20 mg DAILY PO 02/07/18 09:00 03/09/18 08:59 02/09/18 07:49 20 MG Gabapentin (Neurontin Tab) 600 mg TID PO 02/07/18 09:00 03/09/18 08:59 02/09/18 14:38 600 MG Quetiapine Fumarate (seroQUEL TAB) 200 mg QAM PO 02/07/18 09:00 03/09/18 08:59 02/09/18 07:49 200 MG Quetiapine Fumarate (seroQUEL TAB) 400 mg HS PO 02/07/18 21:00 03/09/18 20:59 02/08/18 21:00 400 MG Tamsulosin HCl (Flomax Cap) 0.4 mg HS PO 02/07/18 21:00 03/09/18 20:59 02/08/18 21:00 0.4 MG Ticagrelor (Brilinta Tab) 90 mg BID PO 02/07/18 09:00 03/09/18 08:59 02/09/18 07:49 90 MG Trazodone HCl (Desyrel Tab) 150 mg HS PO 02/07/18 21:00 03/09/18 20:59 02/08/18 21:00 150 MG Miscellaneous Information (Order Awaiting Action) 1 ea QS N/A 02/07/18 08:00 03/09/18 07:59 Lactobacillus Acidophilus (Floranex Tab) 4 tab TIDM PO 02/07/18 07:15 03/09/18 07:14 02/09/18 16:47 4 TAB Ferrous Sulfate (Feosol Tab) 325 mg QAM PO 02/07/18 09:00 03/09/18 08:59 02/09/18 07:50 325 MG Hydromorphone HCl (Dilaudid Inj) 1 mg Q2HWA PRN IV 02/07/18 09:45 02/21/18 09:44 02/09/18 16:45 1 MG Enteral Nutritional Formula (Boost Glucose Control) 1 can BIDM PO 02/07/18 16:30 03/09/18 16:29 02/09/18 16:55 1 CAN Insulin Glargine (Lantus Solostar Pen) 12 units QAM SC 02/09/18 09:00 03/11/18 08:59 02/09/18 09:50 12 UNITS Metoprolol Succinate (Toprol Xl Tab) 25 mg DAILY PO 02/10/18 09:00 03/12/18 08:59 Enalapril Maleate (Vasotec Tab) 20 mg DAILY PO 02/10/18 09:00 03/12/18 08:59 Gadobutrol (Gadavist) 6.5 mmol UD PRN IV 02/09/18 14:30 02/13/18 14:29 Physical Exam Vital Signs Past 12 Hours Date Time Temp Pulse Resp B/P (MAP) Pulse Ox O2 Delivery O2 Flow Rate FiO2 02/09/18 15:17 36.7 103 20 125/79 (94) 97 Room Air 02/09/18 11:15 36.9 92 15 107/63 (78) 98 Room Air 02/09/18 08:00 Room Air 02/09/18 07:11 36.9 96 15 111/74 (86) 98 Room Air Constitutional: General Apperance: well-nourished, well-developed Level of Distress: NAD, acutely ill, chronically ill Psychiatric: Orientation: oriented except where noted, to time, to place, to person Memory: recent memory normal, remote memory normal Eyes: EOM: EOMI Lungs: Respiratory effort: no dyspnea Auscultation: no rales/crackles, no rhonchi Cardiovascular: Apical Impulse: not displaced Peripheral Pulses: Bruits: none appreciated Carotid Pulse: normal on the left, normal on the right Radial Pulse: normal on the left, normal on the right Femoral Pulse: normal on the left, normal on the right Dorsalis Pedis Pulse: decreased on the left, decreased on the right Abdomen: Bowel Sounds: normal Inspection & Palpation: soft, non-distended, no tenderness, guarding & rebound Neurologic: Cranial Nerves: grossly intact Sensation: grossly intact The patient is alert and oriented. Mood and affect appeared normal. He answered all questions appropriately. HEENT: Pupils are equal and reactive to light and accommodation. Extraocular movements are intact. The sclerae are anicteric. Neuro: Cranial nerves intact Neck: Patient's neck is supple. He has palpable carotid pulses bilaterally without bruits on auscultation. There is no evidence of jugular venous distention. The thyroid is not enlarged. Lungs: Clear to auscultation bilaterally. He has good air movement without use of accessory muscles. No rales wheezes or rhonchi. Cardiac: Heart demonstrates a regular rate and rhythm. Normal S1 and S2. No murmurs on examination. Pulses: The patient has palpable radial pulses bilaterally that are equal in intensity Extremities: There was no evidence of hypoperfusion. There is no cyanosis or clubbing. There is no edema. He had palpable dorsalis pedis and posterior tibial pulses on the left foot. The for 2nd and 3rd toes of the left foot are gangrenous. Skin: I did not appreciate any rashes on examination today. Data Laboratory Results: Last 24 Hours Test 02/08/18 20:34 02/09/18 06:52 02/09/18 07:15 02/09/18 09:43 Bedside Glucose 180 mg/dl 233 mg/dl White Blood Count 6.90 K/uL Red Blood Count 4.05 M/uL Hemoglobin 10.8 g/dL Hematocrit 33.0 % Mean Corpuscular Volume 81.5 fL Mean Corpuscular Hemoglobin 26.7 pg Mean Corpuscular Hemoglobin Concent 32.7 g/dl Platelet Count 243 K/uL Mean Platelet Volume 11.3 fL Neutrophils (%) (Auto) 69.2 % Lymphocytes (%) (Auto) 22.9 % Monocytes (%) (Auto) 5.4 % Eosinophils (%) (Auto) 2.3 % Basophils (%) (Auto) 0.1 % Neutrophils # (Auto) 4.77 K/uL Lymphocytes # (Auto) 1.58 K/uL Monocytes # (Auto) 0.37 K/uL Eosinophils # (Auto) 0.16 K/uL Basophils # (Auto) 0.01 K/uL RDW Standard Deviation 48.3 fL RDW Coefficient of Variation 16.2 % Immature Granulocyte % (Auto) 0.1 % Immature Granulocyte # (Auto) 0.01 K/uL Erythrocyte Sedimentation Rate 71 mm/hr Sodium Level 138 mmol/L Potassium Level 4.6 mmol/L Chloride Level 106 mmol/L Carbon Dioxide Level 23 mmol/L Anion Gap 9.0 mmol/L Blood Urea Nitrogen 22 mg/dl Creatinine 0.94 mg/dl Est Creatinine Clear Calc Drug Dose 95.2 ml/min Estimated GFR () 111.5 Estimated GFR (Non- 96.2 BUN/Creatinine Ratio 23.3 Random Glucose 239 mg/dl Estimated Average Glucose 194 mg/dl Hemoglobin A1c 8.4 % Calcium Level 9.1 mg/dl Iron Level 56 mcg/dl Total Iron Binding Capacity 302 mcg/dl Transferrin 235 mg/dl Transferrin % Saturation 17 % Ferritin 327.0 ng/ml Total Bilirubin 0.5 mg/dl Direct Bilirubin 0.2 mg/dl Aspartate Amino Transf (AST/SGOT) 89 U/L Alanine Aminotransferase (ALT/SGPT) 200 U/L Alkaline Phosphatase 352 U/L C-Reactive Protein 4.58 mg/dl Total Protein 7.7 gm/dl Albumin 2.7 gm/dl Hepatitis C Antibody NEG Test 02/09/18 11:20 02/09/18 16:11 Bedside Glucose 265 mg/dl 195 mg/dl Imaging: Chest x-ray obtained was normal. No acute cardiopulmonary process. MRI of the foot suggests osteomyelitis. EKG: Normal sinus rhythm with likely old inferior myocardial infarction Telemetry reviewed: Sinus rhythm Assessment & Plan 1. Perioperative risk: The patient's main risk for cardiac events in the perioperative period revolves around his recent myocardial infarction. He is within 60 days of an infarct and therefore his risk will be high for Re infarction or associated complications such as arrhythmia. He does not exhibit other high risk features such as angina, significant valvular heart disease, arrhythmia or heart failure. It sounds as if this surgery is necessary given his presentation and ongoing infection. His risk would be lowest if his hemodynamics can be optimized, and his beta-ruy continued in the perioperative period. As with most patients efforts should be made to avoid significant anemia, hypotension, hypertension, hypoxia and tachycardia. 2. Coronary artery disease: Patient reportedly had a myocardial infarction. He presented to [facility] again with chest pain and underwent repeat catheterization approximately 1 week ago. This revealed patency of his stents in vessels. No additional intervention was performed. However, given the recent nature of his stenting, he will require continuation of his aspirin and Plavix in the perioperative period. Continuation of beta-blockers also advisable. 3. Congestive heart failure: There is some report of reduced LV function associated with his infarct. He appears to be well compensated currently. I do not think a repeat echocardiogram would change our perioperative management at this point. He should be continued on his beta-ruy and Ramses inhibitor if tolerated. 4. Possible endocarditis: There is reported in his record of a transesophageal echocardiogram, presumably looking for an embolic source for his gangrenous toes. He was treated with antibiotics but appears to have ongoing infection.
[2018-02-09] MEDS ORDERED: VANCOMYCIN TROUGH ONE (20:30)
[2018-02-09] MEDS: ATORVASTATIN 20 MG TAB PO SCH (20:56)
[2018-02-09] MEDS: TRAZODONE HCL 100 MG TAB PO SCH (20:57)
[2018-02-09] MEDS: TAMSULOSIN HCL 0.4 MG CAP PO SCH (20:58)
--- NOTE | 2018-02-09 22:52 | Pharmacy Progress Note ---
Pharmacy Abx Dose Short Note Date of Service Feb 09, 2018. Assessment & Plan Item Value Date Time Vancomycin Level Trough 10.6 mcg/ml 02/09/182021 Est Creatinine Clear Calc Drug Dose 95.2 ml/min 02/09/18651 Creatinine 0.94 mg/dl 02/09/18651 Assessment 48 year old male receiving VANC/ZOSYN for treatment of bacteremia Day # 4 of antimicrobial therapy. Plan Vancomycin * Trough level of 10.6 mcg/mL is subtherapeutic. * Will shorten dosing interval. Change to Vanc 1000mg (~15mg/kg) IV q 10h * Goal trough level: 15 to 20 mcg/mL * Will recheck VANC Trough prior to dose on 02/11/18 @ 1130 Pharmacy will continue to follow and will adjust dose/frequency as necessary. Thank you.
[2018-02-09] MEDS: OXYCODONE HCL IR 5 MG TAB (IMMEDIATE RELEASE) PO PRN (23:48)
[2018-02-10] MEDS: PIPERACILL/TAZOBAC IV 3.375 GM in DEXTROSE 5% 100ML 100 ML IV SCH ×3 (01:46→18:04)
[2018-02-10] MEDS: HYDROmorphone INJ 0.5 MG/0.5 ML SYR IV PRN ×11 (01:48→23:35)
[2018-02-10] MEDS: VANCOMYCIN IV 1,000 MG in SODIUM CHLORIDE 0.9% 250ML 250 ML IV SCH ×2 (05:26→15:59)
[2018-02-10 06:45] LABS: BASO % 0.3 %; BASO ABS # 0.02 K/uL (0-0.2); EOS % 3.2 %; HEMATOCRIT 30.6 % (42-52); HEMOGLOBIN 10.5 g/dL (14.0-18.0); IG# 0.01 K/uL (0.00-0.02); LYMPH % 26.3 %; LYMPH ABS # 1.67 K/uL (1.2-3.4); MEAN CELL VOLUME 80.1 fL (80-100); MEAN CORPUSCULAR HEMOGLOBIN 27.5 pg (25-34); MEAN CORPUSCULAR HGB CONC 34.3 g/dl (32-36); MEAN PLATELET VOLUME 10.7 fL (7.4-10.4); MONO % 8.7 %; MONO ABS # 0.55 K/uL (0.11-0.59); NEUT % 61.3 %; NEUT ABS # 3.89 K/uL (1.4-6.5); PLATELET COUNT 217 K/uL (130-400); RED CELL DISTRIBUTION WIDTH CV 16.4 % (11.5-14.5); RED CELL DISTRIBUTION WIDTH SD 47.5 fL (36.4-46.3); WHITE BLOOD COUNT 6.34 K/uL (4.8-10.8)
[2018-02-10] MEDS: HEPARIN SOD 5000 UNIT/0.5 ML CARP SQ SCH ×3 (07:16→21:00)
[2018-02-10] MEDS: BOOST GLUCOSE CONTROL VANILLA PO SCH ×3 (07:18→17:00)
[2018-02-10] MEDS: ASPIRIN 81 MG ECTAB PO SCH ×2 (07:19→09:03)
[2018-02-10 07:32] LABS: ALBUMIN 2.7 gm/dl (3.4-5.0); CALCIUM 8.8 mg/dl (8.5-10.1); CREATININE 0.88 mg/dl (0.60-1.40); POTASSIUM 4.1 mmol/L (3.5-5.1)
[2018-02-10 07:35] LABS: TOTAL PROTEIN 7.8 gm/dl (6.4-8.2)
[2018-02-10] MEDS: METOPROLOL SUCC 25MG EXT REL TAB PO SCH (07:47)
[2018-02-10] MEDS: LACTOBACILLUS ACIDOPHILUS (FLORANEX) TAB PO SCH ×3 (07:47→18:05)
[2018-02-10] MEDS: GABAPENTIN 600 MG TAB PO SCH ×3 (07:48→19:57)
[2018-02-10] MEDS: QUETIAPINE FUMARATE 200 MG TAB PO SCH ×2 (07:48→21:19)
[2018-02-10] MEDS: CITALOPRAM 20 MG TAB PO SCH (07:48)
[2018-02-10] MEDS: ENALAPRIL MALEATE 10 MG TAB PO SCH (07:48)
[2018-02-10] MEDS: FERROUS SULFATE 325 MG TAB PO SCH (07:49)
[2018-02-10 07:55] VITALS: BP 111/76; PULSE 90; TEMP 37.2; O2SAT 98
[2018-02-10] MEDS: TICAGRELOR 90 MG TAB PO SCH ×2 (09:03→19:57)
[2018-02-10] MEDS: INSULIN ASPART 100 UNITS/ML 3 ML PEN SC SCH ×4 (09:42→21:00)
[2018-02-10] MEDS: INSULIN GLARGINE SOLOSTAR 100 UNITS/ML 3 ML PEN SC SCH (09:42)
--- NOTE | 2018-02-10 10:22 | Progress Note ---
Progress Note Date of Service Feb 10, 2018. Progress Note Pt's MRI reviewed by Dr Lane, planning on transmetatarsal amputation of L 1st -3rd toes on THURSDAY in OR. Will discuss with pt this afternoon during rounds.
--- NOTE | 2018-02-10 11:21 | Hospitalist Progress Note ---
Hospitalist Progress Note Date of Service Feb 10, 2018. Subjective Pt evaluation today including: conversation w/ patient Patient has pain in the left foot, but otherwise feels fine. Denies chest pain or shortness of breath, denies abdominal pain. He moved his bowels today. No blood in his stool. He is more cooperative and less argumentative today as per nursing staff. Patient reports that he has been told he had elevated liver enzymes for at least 8 years and his psychiatrist in [place] thought it was secondary to the Seroquel, however did not want to take him off the medication All Other Systems: Reviewed and Negative Objective Vital Signs Date Time Temp Pulse Resp B/P (MAP) Pulse Ox O2 Delivery O2 Flow Rate FiO2 02/10/18 08:30 Room Air 02/10/18 07:55 37.2 90 20 111/76 (88) 98 Room Air 02/09/18 23:04 37.5 95 16 107/69 (82) 96 Room Air 02/09/18 20:00 Room Air 02/09/18 17:38 36.7 103 20 97 02/09/18 15:17 36.7 103 20 125/79 (94) 97 Room Air 02/09/18 11:15 36.9 92 15 107/63 (78) 98 Room Air Physical Exam General Appearance: WD/WN, no apparent distress Eyes: normal inspection, sclerae normal ENT: hearing grossly normal Neck: trachea midline Respiratory/Chest: lungs clear, normal breath sounds, no respiratory distress, no accessory muscle use Cardiovascular: regular rate, rhythm, no edema, no gallop, no JVD, no murmur Abdomen: normal bowel sounds, non tender, soft Extremities: no pedal edema, no calf tenderness, + pertinent finding (Left foot with great toe, second and third toes with black eschar in place, minimal surrounding erythema) Neurologic/Psychiatric: alert, normal mood/affect, oriented x 3 Skin: warm/dry, no rash Laboratory Results Last 24 Hours Test 02/09/18 11:20 02/09/18 16:11 02/09/18 20:22 02/09/18 21:02 Bedside Glucose 265 mg/dl 195 mg/dl 176 mg/dl Vancomycin Level Trough 10.6 mcg/ml Test 02/10/18 06:26 02/10/18 07:40 White Blood Count 6.34 K/uL Red Blood Count 3.82 M/uL Hemoglobin 10.5 g/dL Hematocrit 30.6 % Mean Corpuscular Volume 80.1 fL Mean Corpuscular Hemoglobin 27.5 pg Mean Corpuscular Hemoglobin Concent 34.3 g/dl Platelet Count 217 K/uL Mean Platelet Volume 10.7 fL Neutrophils (%) (Auto) 61.3 % Lymphocytes (%) (Auto) 26.3 % Monocytes (%) (Auto) 8.7 % Eosinophils (%) (Auto) 3.2 % Basophils (%) (Auto) 0.3 % Neutrophils # (Auto) 3.89 K/uL Lymphocytes # (Auto) 1.67 K/uL Monocytes # (Auto) 0.55 K/uL Eosinophils # (Auto) 0.20 K/uL Basophils # (Auto) 0.02 K/uL RDW Standard Deviation 47.5 fL RDW Coefficient of Variation 16.4 % Immature Granulocyte % (Auto) 0.2 % Immature Granulocyte # (Auto) 0.01 K/uL Sodium Level 136 mmol/L Potassium Level 4.1 mmol/L Chloride Level 105 mmol/L Carbon Dioxide Level 24 mmol/L Anion Gap 7.0 mmol/L Blood Urea Nitrogen 20 mg/dl Creatinine 0.88 mg/dl Est Creatinine Clear Calc Drug Dose 101.7 ml/min Estimated GFR () 118.6 Estimated GFR (Non- 102.3 BUN/Creatinine Ratio 22.8 Random Glucose 185 mg/dl Calcium Level 8.8 mg/dl Total Bilirubin 0.7 mg/dl Direct Bilirubin 0.3 mg/dl Aspartate Amino Transf (AST/SGOT) 112 U/L Alanine Aminotransferase (ALT/SGPT) 222 U/L Alkaline Phosphatase 448 U/L Total Protein 7.8 gm/dl Albumin 2.7 gm/dl Bedside Glucose 185 mg/dl Assessment and Plan This pt is a 48 yo male with a h/o DMII, smoking, CAD s/p 4 PURVI in 12/2017, ischemic CM with EF 40%, HTN, dyslipidemia, depression, COPD, chronic neuropathic pain, transferred from [place] for hypotensive shock-septic vs hypovolemic Hypotensive shock/osteomyelitis left first second third toes--septic from toe infection and less likely UTI vs hypovolemic from hyperosmolar hyperglycemia. I do not suspect he has infected hardware in lumbar spine, however he does have left toes with gangrene. Had abscess at back surgical site in November that was I&D'd and treated with IV abx for weeks, followed by po judy on which he continued up until the day of admission. Toes gangrenous possibly from stubbing toes just prior to admission for [place], plus small vessel disease, ?septic emboli from previous sepsis with MRSA from back? Coag neg Staph on wound cx here but dry gangrene so just a skin culture essentially Had a NEHEMIAH done at [facility] in 12/2017 and was on IV abx prolonged-question if had endocarditis then-still awaiting records No leukocytosis, no fevers now, toes are not healing, and MRI left foot with evidence of osteomyelitis of those toes and septic joint of the first MTP ESR elevated at 71, CRP elevated at 4.58 UA here is normal -now off pressors, BPs remain acceptable -Restarted Toprol and YESIKA inhibitor -requested BCxs and Ur cx from [facility]-still awaiting results -request NEHEMIAH record from [facility]-still awaiting results -Follow ESR, CRP -continue Vancomycin and Zosyn -ID following, will give final treatment recommendations for antibiotics after amputation as below Osteomyelitis/gangrene of 1st, 2nd and 3rd toes on left foot-present for weeks, getting worse, has severe neuropathic pain at times. CINTHYA here shows likely decreased flow in left leg, Arterial Dopplers without significant blockage, has palpable pulses femoral/popliteal/pedal bilat -consult vascular surgery for their recommendations-appreciated and plan for transmetatarsal amputation of the left first second and third toes on Thursday -No plans for angioplasty -Appreciate cardiology preoperative assessment-he is higher risk but this is necessary surgery and proceed with surgery is recommended-remain on beta-ruy , statin, aspirin, Brilinta, and watch for hypoxia and hypotension CAD s/p 4 PURVI for recent STEMI/HTN/elevated troponin/Ischemic CM/Chronic systolic CHF--last EF 40% as per pt-need records to confirm-still awaiting for these. No evidence of volume overload at this time Continue aspirin 81 mg daily and Brilinta 90 mg p.o. twice daily. -Back on an YESIKA inhibitor and Toprol-XL 25 mg daily Diabetes mellitus II, on buttermaker helper insulin and metformin at home, not well controlled, HgbA1C here 8.4%. With glucose in the 500s the day of admission and likely had severe dehydration and hypovolemia from hyperglycemia. Resuscitated with 3 L NS at [facility] Hyperglycemia now improving with adding Lantus -Continue Lantus 12 units daily -continue SSI -appreciate CDE consult -Restart metformin after discharge Hyperlipidemia--recent PURVI placed fo severe CAD Continue atorvastatin 40 mg at bedtime, however with LFTs up, will need to carefully watch transaminases Elevated LFTs- AST,ALT,ALk Phos all elevated, TBili normal. All trending upward today. Patient reports chronic elevation of LFTs thought to be due to his psychiatric medications-I do not have old labs as these were drawn in [place]. Perhaps has some element of shock liver from the profound hypotension on admission. Was also recently started on high intensity atorvastatin, as well as doxycycline which could also be contributing Is not volume overloaded so I do not suspect hepatic congestion from CHF Liver US with fatty liver -Continue to trend LFTs -Continue statin for now given recent STEMI and stent placement -Continue Seroquel at same chronic dose for many years -Holding doxycycline while on vancomycin Bipolar d/o-stable Continue Celexa 20 mg daily, Seroquel and trazodone. COPD--stable, quit smoking 1 month ago continue pro-air HFA. Chronic pain syndrome-- Continue gabapentin 600 mg p.o., but increased from twice daily to 3 times daily , and oxycodone 15 mg p.o. every 6 hours as needed. Dilaudid IV prn severe pain BPH-- Continue Flomax 0.4 mg p.o. daily, but moved to bedtime. Appetite stimulation-- Continue Megace. Proph-heparin SQ Dispo-transition to medical floor as per patient's request yesterday, plus did not have any significant events on telemetry-okay to remain on medical floor for now, but would recommend at least 24 hours observation on telemetry after surgery on Thursday
--- NOTE | 2018-02-10 14:34 | Progress Note ---
Subjective Date of Service: Feb 10, 2018. Subjective MRI reviewed, concerning for osteo. for amp. Blood cultures remain negative. afebrile. tolerating abx. Objective Vital Signs Date Time Temp Pulse Resp B/P (MAP) Pulse Ox O2 Delivery O2 Flow Rate FiO2 02/10/18 08:30 Room Air 02/10/18 07:55 37.2 90 20 111/76 (88) 98 Room Air 02/09/18 23:04 37.5 95 16 107/69 (82) 96 Room Air 02/09/18 20:00 Room Air 02/09/18 17:38 36.7 103 20 97 02/09/18 15:17 36.7 103 20 125/79 (94) 97 Room Air Laboratory Results Item Value Date Time Blood Culture - Preliminary Resulted 02/07/18 0728 Blood NO GROWTH TO DATE. Blood Culture - Preliminary Resulted 02/07/18 0720 Blood NO GROWTH TO DATE. Gram Stain - Final Complete 02/07/18 0320 Ulcer Foot Left Last 24 Hours Test 02/09/18 16:11 02/09/18 20:22 02/09/18 21:02 02/10/18 06:26 Bedside Glucose 195 mg/dl 176 mg/dl Vancomycin Level Trough 10.6 mcg/ml White Blood Count 6.34 K/uL Red Blood Count 3.82 M/uL Hemoglobin 10.5 g/dL Hematocrit 30.6 % Mean Corpuscular Volume 80.1 fL Mean Corpuscular Hemoglobin 27.5 pg Mean Corpuscular Hemoglobin Concent 34.3 g/dl Platelet Count 217 K/uL Mean Platelet Volume 10.7 fL Neutrophils (%) (Auto) 61.3 % Lymphocytes (%) (Auto) 26.3 % Monocytes (%) (Auto) 8.7 % Eosinophils (%) (Auto) 3.2 % Basophils (%) (Auto) 0.3 % Neutrophils # (Auto) 3.89 K/uL Lymphocytes # (Auto) 1.67 K/uL Monocytes # (Auto) 0.55 K/uL Eosinophils # (Auto) 0.20 K/uL Basophils # (Auto) 0.02 K/uL RDW Standard Deviation 47.5 fL RDW Coefficient of Variation 16.4 % Immature Granulocyte % (Auto) 0.2 % Immature Granulocyte # (Auto) 0.01 K/uL Sodium Level 136 mmol/L Potassium Level 4.1 mmol/L Chloride Level 105 mmol/L Carbon Dioxide Level 24 mmol/L Anion Gap 7.0 mmol/L Blood Urea Nitrogen 20 mg/dl Creatinine 0.88 mg/dl Est Creatinine Clear Calc Drug Dose 101.7 ml/min Estimated GFR () 118.6 Estimated GFR (Non- 102.3 BUN/Creatinine Ratio 22.8 Random Glucose 185 mg/dl Calcium Level 8.8 mg/dl Total Bilirubin 0.7 mg/dl Direct Bilirubin 0.3 mg/dl Aspartate Amino Transf (AST/SGOT) 112 U/L Alanine Aminotransferase (ALT/SGPT) 222 U/L Alkaline Phosphatase 448 U/L Total Protein 7.8 gm/dl Albumin 2.7 gm/dl Test 02/10/18 07:40 02/10/18 11:40 Bedside Glucose 185 mg/dl 245 mg/dl Assessment and Plan (1) Gangrene Assessment & Plan: continue abx, await OR findings, please send culture. will follow
[2018-02-10 14:51] VITALS: BP 86/48; PULSE 81; TEMP 37.2; O2SAT 97
[2018-02-10 14:57] VITALS: BP 90/53
[2018-02-10 15:31] VITALS: O2SAT 97
[2018-02-10] MEDS: TRAZODONE HCL 100 MG TAB PO SCH (21:19)
[2018-02-10] MEDS: OXYCODONE HCL IR 5 MG TAB (IMMEDIATE RELEASE) PO PRN (21:19)
[2018-02-10] MEDS: ATORVASTATIN 20 MG TAB PO SCH (21:21)
[2018-02-10] MEDS: TAMSULOSIN HCL 0.4 MG CAP PO SCH (21:22)
[2018-02-10 23:49] VITALS: BP 102/68; PULSE 88; TEMP 37.1; O2SAT 97
[2018-02-11] MEDS: VANCOMYCIN IV 1,000 MG in SODIUM CHLORIDE 0.9% 250ML 250 ML IV SCH ×3 (01:31→20:09)
[2018-02-11] MEDS: PIPERACILL/TAZOBAC IV 3.375 GM in DEXTROSE 5% 100ML 100 ML IV SCH ×3 (01:31→17:31)
[2018-02-11] MEDS: HYDROmorphone INJ 0.5 MG/0.5 ML SYR IV PRN ×10 (01:32→23:37)
[2018-02-11 07:51] LABS: BASO % 0.3 %; BASO ABS # 0.02 K/uL (0-0.2); EOS % 3.2 %; HEMATOCRIT 29.7 % (42-52); HEMOGLOBIN 9.8 g/dL (14.0-18.0); LYMPH % 21.9 %; LYMPH ABS # 1.35 K/uL (1.2-3.4); MEAN CELL VOLUME 81.1 fL (80-100); MEAN CORPUSCULAR HEMOGLOBIN 26.8 pg (25-34); MEAN PLATELET VOLUME 11.7 fL (7.4-10.4); MONO % 7.6 %; MONO ABS # 0.47 K/uL (0.11-0.59); NEUT ABS # 4.13 K/uL (1.4-6.5); PLATELET COUNT 221 K/uL (130-400); RED CELL DISTRIBUTION WIDTH CV 16.6 % (11.5-14.5); RED CELL DISTRIBUTION WIDTH SD 49.3 fL (36.4-46.3); WHITE BLOOD COUNT 6.17 K/uL (4.8-10.8)
[2018-02-11 08:00] VITALS: O2SAT 97
[2018-02-11] MEDS: BOOST GLUCOSE CONTROL VANILLA PO SCH ×2 (08:00→17:00)
[2018-02-11] MEDS: HEPARIN SOD 5000 UNIT/0.5 ML CARP SQ SCH ×2 (08:05→20:53)
[2018-02-11] MEDS: QUETIAPINE FUMARATE 200 MG TAB PO SCH ×2 (08:06→21:22)
[2018-02-11] MEDS: ASPIRIN 81 MG ECTAB PO SCH (08:06)
[2018-02-11] MEDS: CITALOPRAM 20 MG TAB PO SCH (08:06)
[2018-02-11] MEDS: FERROUS SULFATE 325 MG TAB PO SCH (08:06)
[2018-02-11] MEDS: METOPROLOL SUCC 25MG EXT REL TAB PO SCH (08:07)
[2018-02-11] MEDS: LACTOBACILLUS ACIDOPHILUS (FLORANEX) TAB PO SCH ×3 (08:07→17:29)
[2018-02-11] MEDS: GABAPENTIN 600 MG TAB PO SCH ×3 (08:07→19:21)
[2018-02-11] MEDS: TICAGRELOR 90 MG TAB PO SCH ×2 (08:08→19:22)
[2018-02-11] MEDS: ENALAPRIL MALEATE 10 MG TAB PO SCH (08:08)
[2018-02-11] MEDS: INSULIN ASPART 100 UNITS/ML 3 ML PEN SC SCH ×4 (08:15→21:25)
[2018-02-11] MEDS: INSULIN GLARGINE SOLOSTAR 100 UNITS/ML 3 ML PEN SC SCH (08:16)
[2018-02-11 08:23] LABS: ALBUMIN 2.6 gm/dl (3.4-5.0); CALCIUM 9.1 mg/dl (8.5-10.1); CREATININE 0.86 mg/dl (0.60-1.40); POTASSIUM 4.3 mmol/L (3.5-5.1); TOTAL PROTEIN 7.7 gm/dl (6.4-8.2)
[2018-02-11 08:31] VITALS: BP 112/76; PULSE 89; TEMP 36.9; O2SAT 95
[2018-02-11] MEDS ORDERED: INSULIN GLARGINE SOLOSTAR 100 UNITS/ML 3 ML PEN SC SCH (10:00)
[2018-02-11] MEDS ORDERED: VANCOMYCIN TROUGH ONE (11:30)
--- NOTE | 2018-02-11 12:32 | Hospitalist Progress Note ---
Hospitalist Progress Note Date of Service Feb 11, 2018. Subjective Pt evaluation today including: conversation w/ patient Patient reports a lot of pain in the left toes but otherwise doing well. No nausea or vomiting, is eating all of his meals and has a good appetite. Denies abdominal pain, no diarrhea, no chest pain or shortness of breath. He remains afebrile. All Other Systems: Reviewed and Negative Objective Vital Signs Date Time Temp Pulse Resp B/P (MAP) Pulse Ox O2 Delivery O2 Flow Rate FiO2 02/11/18 08:31 36.9 89 20 112/76 (88) 95 Room Air 02/11/18 08:00 97 Room Air 02/11/18 00:00 Room Air 02/10/18 23:49 37.1 88 18 102/68 (79) 97 Room Air 02/10/18 15:31 97 Room Air 02/10/18 14:57 90/53 (65) 02/10/18 14:51 37.2 81 16 86/48 (61) 97 Room Air Physical Exam General Appearance: WD/WN, no apparent distress Eyes: normal inspection, sclerae normal ENT: hearing grossly normal Neck: trachea midline Respiratory/Chest: lungs clear, normal breath sounds, no respiratory distress, no accessory muscle use Cardiovascular: regular rate, rhythm, no edema, no murmur Abdomen: normal bowel sounds, soft Extremities: no calf tenderness, + pertinent finding (Left great toe second and third toes all black with minimal surrounding erythema, no drainage) Neurologic/Psychiatric: alert, normal mood/affect, oriented x 3 Skin: warm/dry Laboratory Results Last 24 Hours Test 02/10/18 17:17 02/10/18 20:09 02/11/18 06:36 02/11/18 07:42 Bedside Glucose 176 mg/dl 132 mg/dl 188 mg/dl White Blood Count 6.17 K/uL Red Blood Count 3.66 M/uL Hemoglobin 9.8 g/dL Hematocrit 29.7 % Mean Corpuscular Volume 81.1 fL Mean Corpuscular Hemoglobin 26.8 pg Mean Corpuscular Hemoglobin Concent 33.0 g/dl Platelet Count 221 K/uL Mean Platelet Volume 11.7 fL Neutrophils (%) (Auto) 67.0 % Lymphocytes (%) (Auto) 21.9 % Monocytes (%) (Auto) 7.6 % Eosinophils (%) (Auto) 3.2 % Basophils (%) (Auto) 0.3 % Neutrophils # (Auto) 4.13 K/uL Lymphocytes # (Auto) 1.35 K/uL Monocytes # (Auto) 0.47 K/uL Eosinophils # (Auto) 0.20 K/uL Basophils # (Auto) 0.02 K/uL RDW Standard Deviation 49.3 fL RDW Coefficient of Variation 16.6 % Immature Granulocyte % (Auto) 0.0 % Immature Granulocyte # (Auto) 0.00 K/uL Sodium Level 137 mmol/L Potassium Level 4.3 mmol/L Chloride Level 105 mmol/L Carbon Dioxide Level 23 mmol/L Anion Gap 8.0 mmol/L Blood Urea Nitrogen 21 mg/dl Creatinine 0.86 mg/dl Est Creatinine Clear Calc Drug Dose 104.1 ml/min Estimated GFR () 119.7 Estimated GFR (Non- 103.3 BUN/Creatinine Ratio 24.4 Random Glucose 177 mg/dl Calcium Level 9.1 mg/dl Total Bilirubin 0.5 mg/dl Direct Bilirubin 0.3 mg/dl Aspartate Amino Transf (AST/SGOT) 112 U/L Alanine Aminotransferase (ALT/SGPT) 222 U/L Alkaline Phosphatase 434 U/L Total Protein 7.7 gm/dl Albumin 2.6 gm/dl Test 02/11/18 11:29 02/11/18 11:33 Vancomycin Level Trough 13.9 mcg/ml Bedside Glucose 191 mg/dl Assessment and Plan This pt is a 48 yo male with a h/o DMII, smoking, CAD s/p 4 PURVI in 12/2017, ischemic CM with EF 40%, HTN, dyslipidemia, depression, COPD, chronic neuropathic pain, transferred from [place] for hypotensive shock-septic vs hypovolemic Hypotensive shock/osteomyelitis left first second third toes--septic from toe infection and less likely UTI vs hypovolemic from hyperosmolar hyperglycemia. I do not suspect he has infected hardware in lumbar spine, however he does have left toes with gangrene. Had abscess at back surgical site in November that was I&D'd and treated with IV abx for weeks, followed by po doxy on which he continued up until the day of admission. Toes gangrenous possibly from stubbing toes just prior to admission for [place], plus small vessel disease, ?septic emboli from previous sepsis with MRSA from back? Coag neg Staph on wound cx here but dry gangrene so just a skin culture essentially Had a NEHEMIAH done at [place] in 12/2017 and was on IV abx prolonged-question if had endocarditis then-still awaiting records No leukocytosis, no fevers now, toes are not healing, and MRI left foot with evidence of osteomyelitis of those toes and septic joint of the first MTP ESR elevated at 71, CRP elevated at 4.58 UA here is normal -now off pressors, BPs remain acceptable -Restarted Toprol and YESIKA inhibitor -requested BCxs and Ur cx from [place]-still awaiting results -request NEHEMIAH record from [place]-still awaiting results -Follow ESR, CRP -continue Vancomycin and Zosyn -ID following, will give final treatment recommendations for antibiotics after amputation as below Osteomyelitis/gangrene of 1st, 2nd and 3rd toes on left foot-present for weeks, getting worse, has severe neuropathic pain at times. CINTHYA here shows likely decreased flow in left leg, Arterial Dopplers without significant blockage, has palpable pulses femoral/popliteal/pedal bilat -consult vascular surgery for their recommendations-appreciated and plan for transmetatarsal amputation of the left first second and third toes on Thursday -No plans for angioplasty -Appreciate cardiology preoperative assessment-he is higher risk but this is necessary surgery and proceed with surgery is recommended-remain on beta-ruy , statin, aspirin, Brilinta, and watch for hypoxia and hypotension CAD s/p 4 PURVI for recent STEMI/HTN/elevated troponin/Ischemic CM/Chronic systolic CHF--last EF 40% as per pt-need records to confirm-still awaiting for these. No evidence of volume overload at this time Continue aspirin 81 mg daily and Brilinta 90 mg p.o. twice daily. -Back on an YESIKA inhibitor and Toprol-XL 25 mg daily Diabetes mellitus II, on buttermaker continuous churn insulin and metformin at home, not well controlled, HgbA1C here 8.4%. With glucose in the 500s the day of admission and likely had severe dehydration and hypovolemia from hyperglycemia. Resuscitated with 3 L NS at [facility] [place] Hyperglycemia now improving with adding Lantus, however remains hyperglycemic -Increase Lantus to 15 units daily -continue SSI -appreciate CDE consult -Restart metformin after discharge Hyperlipidemia--recent PURVI placed for severe CAD Continue atorvastatin 40 mg at bedtime, however with LFTs up, will need to carefully watch transaminases Elevated LFTs- AST,ALT,ALk Phos all elevated, TBili normal. All trended upward during admission but stable today. Patient reports chronic elevation of LFTs thought to be due to his psychiatric medications-I do not have old labs as these were drawn in [place]. Perhaps has some element of shock liver from the profound hypotension on admission. Was also recently started on high intensity atorvastatin, as well as doxycycline which could also be contributing Is not volume overloaded so I do not suspect hepatic congestion from CHF Liver US with fatty liver -Continue to trend LFTs -Continue statin for now given recent STEMI and stent placement -Continue Seroquel at same chronic dose for many years -Holding doxycycline while on vancomycin Bipolar d/o-stable Continue Celexa 20 mg daily, Seroquel and trazodone. COPD--stable, quit smoking 1 month ago continue pro-air HFA. Chronic pain syndrome-- Continue gabapentin 600 mg p.o., but increased from twice daily to 3 times daily , and oxycodone 15 mg p.o. every 6 hours as needed. Dilaudid IV prn severe pain BPH-- Continue Flomax 0.4 mg p.o. daily, but moved to bedtime. Appetite stimulation-- Continue Megace when brought in from home. Proph-heparin SQ Dispo-remain on medical floor for now, but would recommend at least 24 hours observation on telemetry after surgery on Thursday if there are any concerns in the perioperative period by anesthesia
--- NOTE | 2018-02-11 14:47 | Pharmacy Progress Note ---
Pharmacy Antibiotic Prog Note Date of Service Feb 11, 2018. Subjective The patient is currently receiving vancomycin 1000 mg iv Q 10hr The patient is currently on day # 6 of IV therapy. Objective Height (Feet): 6 Height (Inches): 0.00 Weight (Kilograms): 69.300 Levels: Item Value Date Time Vancomycin Level Trough 13.9 mcg/ml 02/11/18 1129 Vancomycin Level Trough 10.6 mcg/ml 02/09/182021 Lab Results (24hrs): Test 02/11/18 06:36 02/11/18 07:42 02/11/18 11:29 02/11/18 11:33 White Blood Count 6.17 K/uL (4.8-10.8) Red Blood Count 3.66 M/uL (4.7-6.1) Hemoglobin 9.8 g/dL (14.0-18.0) Hematocrit 29.7 % (42-52) Mean Corpuscular Volume 81.1 fL (80-100) Mean Corpuscular Hemoglobin 26.8 pg (25-34) Mean Corpuscular Hemoglobin Concent 33.0 g/dl (32-36) Platelet Count 221 K/uL (130-400) Mean Platelet Volume 11.7 fL (7.4-10.4) Neutrophils (%) (Auto) 67.0 % Lymphocytes (%) (Auto) 21.9 % Monocytes (%) (Auto) 7.6 % Eosinophils (%) (Auto) 3.2 % Basophils (%) (Auto) 0.3 % Neutrophils # (Auto) 4.13 K/uL (1.4-6.5) Lymphocytes # (Auto) 1.35 K/uL (1.2-3.4) Monocytes # (Auto) 0.47 K/uL (0.11-0.59) Eosinophils # (Auto) 0.20 K/uL (0-0.5) Basophils # (Auto) 0.02 K/uL (0-0.2) RDW Standard Deviation 49.3 fL (36.4-46.3) RDW Coefficient of Variation 16.6 % (11.5-14.5) Immature Granulocyte % (Auto) 0.0 % Immature Granulocyte # (Auto) 0.00 K/uL (0.00-0.02) Sodium Level 137 mmol/L (136-145) Potassium Level 4.3 mmol/L (3.5-5.1) Chloride Level 105 mmol/L (98-107) Carbon Dioxide Level 23 mmol/L (21-32) Anion Gap 8.0 mmol/L (3-11) Blood Urea Nitrogen 21 mg/dl (7-18) Creatinine 0.86 mg/dl (0.60-1.40) Est Creatinine Clear Calc Drug Dose 104.1 ml/min Estimated GFR () 119.7 Estimated GFR (Non- 103.3 BUN/Creatinine Ratio 24.4 (10-20) Random Glucose 177 mg/dl (70-99) Calcium Level 9.1 mg/dl (8.5-10.1) Total Bilirubin 0.5 mg/dl (0.2-1) Direct Bilirubin 0.3 mg/dl (0-0.2) Aspartate Amino Transf (AST/SGOT) 112 U/L (15-37) Alanine Aminotransferase (ALT/SGPT) 222 U/L (12-78) Alkaline Phosphatase 434 U/L (45-117) Total Protein 7.7 gm/dl (6.4-8.2) Albumin 2.6 gm/dl (3.4-5.0) Bedside Glucose 188 mg/dl (70-99) 191 mg/dl (70-99) Vancomycin Level Trough 13.9 mcg/ml (SEE COMMENT) Assessment & Plan Patient currently on vancomycin after MRI of left foot showed evidence of osteomyelitis. Patient to go for toe amputation 02/12. ID is following the patient. Vancomycin: * Trough level still slightly subtherapeutic at ~14 mcg/ml (goal closer to 15- 20 mcg/ml for osteo) * Will adjust dosing to vancomycin 1000 mg iv q 8 hrs to target higher trough level * Scr remains stable today, CrCl ~100 * Will await OR findings/cultures and order a trough if vancomycin is to be continued Zosyn: * 3.375 gm iv q 8 hrs - no change Pharmacy will continue to follow and will adjust dose/frequency as necessary. Thank you
--- NOTE | 2018-02-11 14:53 | Anesthesiology Progress Note ---
Anesthesia Progress Note Date of Service Feb 11, 2018. Progress Notes The patient is a 48 y/o male scheduled for a L transmetatarsal amputation tomorrow due to gangrenous toes. The patient has multiple comorbidities including recent STEMI with 4 cardiac stents placed, DM not well controlled, recent sepsis, sleep apnea, GERD, Bipolar disorder, anxiety, BPH, anemia, asthma , and history of smoking. The patient is high risk due to his recent to recent [place]/stents. He is an ASA 4. He will continue on antiplatelet therapy in the perioperative period. The patient was consented for MAC sedation, ankle block, and general anesthesia. He was counseled to remain NPO after midnight except for sips of water with pills. I discussed the patient with Dr. Levi.
--- NOTE | 2018-02-11 15:01 | Progress Note ---
Subjective Date of Service: Feb 11, 2018. Subjective Pt evaluation today including: conversation w/ patient, physical exam, chart review, lab review pt seen in followup, for tma tomorrow. still with pain in foot. tolerating IV abx, no abd pain, no n/v/d. eating well. no drainage from foot, no back pain. blood cultures remain negative. remains afebrile. wbc nml. all remaining ros reviewed and are negative. Objective Vital Signs Date Time Temp Pulse Resp B/P (MAP) Pulse Ox O2 Delivery O2 Flow Rate FiO2 02/11/18 08:31 36.9 89 20 112/76 (88) 95 Room Air 02/11/18 08:00 97 Room Air 02/11/18 00:00 Room Air 02/10/18 23:49 37.1 88 18 102/68 (79) 97 Room Air 02/10/18 15:31 97 Room Air Physical Exam General Appearance: WD/WN, no apparent distress Eyes: normal inspection, EOMI Neck: supple Respiratory/Chest: lungs clear, normal breath sounds, no respiratory distress Cardiovascular: regular rate, rhythm, no edema Abdomen: non tender, soft Extremities: no pedal edema Neurologic/Psychiatric: alert, oriented x 3 Skin: normal color Comments: foot with dry gangrene, no drainage, no surrounding erythema, unchanged Laboratory Results Item Value Date Time Blood Culture - Preliminary Resulted 02/07/18 0728 Blood NO GROWTH TO DATE. Blood Culture - Preliminary Resulted 02/07/18 0720 Blood NO GROWTH TO DATE. Last 24 Hours Test 02/10/18 17:17 02/10/18 20:09 02/11/18 06:36 02/11/18 07:42 Bedside Glucose 176 mg/dl 132 mg/dl 188 mg/dl White Blood Count 6.17 K/uL Red Blood Count 3.66 M/uL Hemoglobin 9.8 g/dL Hematocrit 29.7 % Mean Corpuscular Volume 81.1 fL Mean Corpuscular Hemoglobin 26.8 pg Mean Corpuscular Hemoglobin Concent 33.0 g/dl Platelet Count 221 K/uL Mean Platelet Volume 11.7 fL Neutrophils (%) (Auto) 67.0 % Lymphocytes (%) (Auto) 21.9 % Monocytes (%) (Auto) 7.6 % Eosinophils (%) (Auto) 3.2 % Basophils (%) (Auto) 0.3 % Neutrophils # (Auto) 4.13 K/uL Lymphocytes # (Auto) 1.35 K/uL Monocytes # (Auto) 0.47 K/uL Eosinophils # (Auto) 0.20 K/uL Basophils # (Auto) 0.02 K/uL RDW Standard Deviation 49.3 fL RDW Coefficient of Variation 16.6 % Immature Granulocyte % (Auto) 0.0 % Immature Granulocyte # (Auto) 0.00 K/uL Sodium Level 137 mmol/L Potassium Level 4.3 mmol/L Chloride Level 105 mmol/L Carbon Dioxide Level 23 mmol/L Anion Gap 8.0 mmol/L Blood Urea Nitrogen 21 mg/dl Creatinine 0.86 mg/dl Est Creatinine Clear Calc Drug Dose 104.1 ml/min Estimated GFR () 119.7 Estimated GFR (Non- 103.3 BUN/Creatinine Ratio 24.4 Random Glucose 177 mg/dl Calcium Level 9.1 mg/dl Total Bilirubin 0.5 mg/dl Direct Bilirubin 0.3 mg/dl Aspartate Amino Transf (AST/SGOT) 112 U/L Alanine Aminotransferase (ALT/SGPT) 222 U/L Alkaline Phosphatase 434 U/L Total Protein 7.7 gm/dl Albumin 2.6 gm/dl Test 02/11/18 11:29 02/11/18 11:33 Vancomycin Level Trough 13.9 mcg/ml Bedside Glucose 191 mg/dl Assessment and Plan (1) Gangrene Assessment & Plan: continue IV abx. If cultures remain negative, can transition back to po suppressive doxy. OR pending.
[2018-02-11 15:19] VITALS: BP 103/67; PULSE 93; TEMP 37.3; O2SAT 96
[2018-02-11 16:00] VITALS: O2SAT 96
[2018-02-11] MEDS: TRAZODONE HCL 100 MG TAB PO SCH (21:22)
[2018-02-11] MEDS: TAMSULOSIN HCL 0.4 MG CAP PO SCH (21:23)
[2018-02-11] MEDS: ATORVASTATIN 20 MG TAB PO SCH (21:23)
[2018-02-11 22:55] VITALS: BP 104/70; PULSE 91; TEMP 37; O2SAT 94
[2018-02-12] VITALS (28 sets, daily range): BP systolic 90–134; BP diastolic 42–86; PULSE 80–108; TEMP 36.6–37; O2SAT 91–96
[2018-02-12] MEDS: PIPERACILL/TAZOBAC IV 3.375 GM in DEXTROSE 5% 100ML 100 ML IV SCH ×3 (01:22→16:04)
[2018-02-12] MEDS: VANCOMYCIN IV 1,000 MG in SODIUM CHLORIDE 0.9% 250ML 250 ML IV SCH ×3 (03:32→21:14)
[2018-02-12] MEDS: HYDROmorphone INJ 0.5 MG/0.5 ML SYR IV PRN ×7 (03:33→21:07)
[2018-02-12] MEDS: OXYCODONE HCL IR 5 MG TAB (IMMEDIATE RELEASE) PO PRN ×3 (05:18→20:49)
[2018-02-12 06:13] LABS: BASO % 0.5 %; BASO ABS # 0.03 K/uL (0-0.2); EOS % 3.2 %; EOS ABS # 0.19 K/uL (0-0.5); HEMATOCRIT 29.6 % (42-52); HEMOGLOBIN 9.7 g/dL (14.0-18.0); IG# 0.02 K/uL (0.00-0.02); LYMPH % 25.4 %; MEAN CELL VOLUME 80.9 fL (80-100); MEAN CORPUSCULAR HEMOGLOBIN 26.5 pg (25-34); MEAN CORPUSCULAR HGB CONC 32.8 g/dl (32-36); MEAN PLATELET VOLUME 11.9 fL (7.4-10.4); MONO % 7.5 %; MONO ABS # 0.44 K/uL (0.11-0.59); NEUT % 63.1 %; NEUT ABS # 3.72 K/uL (1.4-6.5); PLATELET COUNT 205 K/uL (130-400); RED CELL DISTRIBUTION WIDTH CV 16.6 % (11.5-14.5); RED CELL DISTRIBUTION WIDTH SD 48.7 fL (36.4-46.3)
[2018-02-12 06:50] LABS: ALBUMIN 2.5 gm/dl (3.4-5.0); CALCIUM 8.6 mg/dl (8.5-10.1); CREATININE 0.87 mg/dl (0.60-1.40); POTASSIUM 4.4 mmol/L (3.5-5.1); TOTAL PROTEIN 7.4 gm/dl (6.4-8.2)
[2018-02-12] MEDS: HEPARIN SOD 5000 UNIT/0.5 ML CARP SQ SCH ×2 (07:09→20:44)
[2018-02-12] MEDS: BOOST GLUCOSE CONTROL VANILLA PO SCH ×2 (08:00→16:04)
[2018-02-12] MEDS: INSULIN ASPART 100 UNITS/ML 3 ML PEN SC SCH ×4 (08:02→20:43)
[2018-02-12] MEDS: ENALAPRIL MALEATE 10 MG TAB PO SCH (08:03)
[2018-02-12] MEDS: METOPROLOL SUCC 25MG EXT REL TAB PO SCH (08:03)
[2018-02-12] MEDS: INSULIN GLARGINE SOLOSTAR 100 UNITS/ML 3 ML PEN SC SCH (10:55)
[2018-02-12] MEDS: LACTOBACILLUS ACIDOPHILUS (FLORANEX) TAB PO SCH ×3 (10:55→15:59)
[2018-02-12] MEDS: GABAPENTIN 600 MG TAB PO SCH ×3 (10:55→20:31)
[2018-02-12] MEDS: TICAGRELOR 90 MG TAB PO SCH ×2 (10:55→20:29)
[2018-02-12] MEDS ORDERED: GLYCOPYRROLATE INJ 0.2 MG/ML VIAL ONE (11:02)
[2018-02-12] MEDS ORDERED: PHENYLEPHRINE HCL INJ 10 MG/ML VIAL ONE (11:02)
[2018-02-12] MEDS ORDERED: EpHEDrine SULFATE INJ 50 MG/ML AMP ONE (11:02)
[2018-02-12] MEDS ORDERED: PROPOFOL IV EMULSION 10 MG/ML 20 ML VIAL ONE (11:02)
[2018-02-12] MEDS ORDERED: SUCCINYLCHOLINE CHLORIDE 20 MG/ML 10 ML VIAL IV ONE (11:02)
[2018-02-12] MEDS ORDERED: FENTANYL CITRATE INJ 50 MCG/1 ML 2 ML VIAL ONE (11:02)
[2018-02-12] MEDS ORDERED: LIDOCAINE HCL 2% 2 ML VIAL (20MG/ML) ONE (11:02)
[2018-02-12] MEDS ORDERED: NEOSTIGMINE METHYLSULFATE 5 MG/5 ML SYR ONE (11:02)
[2018-02-12] MEDS ORDERED: MIDAZOLAM HCL 1 MG/ML 2ML VIAL ONE (11:02)
[2018-02-12] MEDS ORDERED: ONDANSETRON INJ 2 MG/ML 2 ML VIAL ONE (11:02)
[2018-02-12] MEDS ORDERED: DEXAMETHASONE SOD INJ 4 MG/ML VIAL ONE (11:02)
--- NOTE | 2018-02-12 11:06 | Progress Note ---
Progress Note Date of Service Feb 12, 2018. Progress Note Patient for transmetatarsal amputation of his left first, second and third toes. I have discussed the risks options and benefits of the procedure with the patient. The patient understands the risks options and benefits and agrees to the procedure. I have examined the patient, reviewed the History & Physical and in the interval since the performance of the History & Physical I have noted the following changes of clinical significance: No changes noted
[2018-02-12] MEDS ORDERED: LIDOCAINE HCL 1% 20 ML VIAL ONE (11:34)
[2018-02-12] MEDS ORDERED: VASOPRESSIN 20 UNIT/ML VIAL ONE (12:10)
--- NOTE | 2018-02-12 12:50 | [facility] Post Operative Brief Note ---
Immediate Operative Summary Operative Date Feb 12, 2018. Pre-Operative Diagnosis Left 1st, 2nd, and 3rd gangrenous toes Post-Operative Diagnosis Same Procedure(s) Performed TMA of left first toe Toe amp of left second and third toes Application of wound vac, 6x2x1.[address] Commercial Truck Driver Surgeon(s) Dr. Morgan Estimated Blood Loss 25 Findings Consistent with Post-Op Diagnosis Specimens toes 1,2,3 Drains None Anesthesia Type General Complication(s) none Disposition Disposition: Recovery Room / PACU
[2018-02-12] MEDS ORDERED: LABETALOL HCL IV 5 MG/ML 20ML IV PRN (13:30)
[2018-02-12] MEDS ORDERED: ATROPINE SULFATE 0.1 MG/ML 5ML SYR IV PRN (13:30)
[2018-02-12] MEDS ORDERED: NALOXONE HCL 0.4 MG/1 ML VIAL/CARP IV PRN (13:30)
[2018-02-12] MEDS ORDERED: FLUMAZENIL 0.1 MG/1 ML 10 ML VIAL IV PRN (13:30)
[2018-02-12] MEDS ORDERED: ONDANSETRON INJ 2 MG/ML 2 ML VIAL IV PRN (13:30)
[2018-02-12] MEDS ORDERED: EpHEDrine SULFATE INJ 50 MG/ML AMP IV PRN (13:30)
[2018-02-12] MEDS: FENTANYL CITRATE INJ 50 MCG/1 ML 2 ML VIAL IV PRN ×4 (13:37→14:47)
[2018-02-12] MEDS: HYDROmorphone INJ 2 MG/ML SYR/VIAL IV PRN ×8 (13:52→14:42)
--- NOTE | 2018-02-12 13:52 | [facility] Operative Report ---
Operative Report Operative Date Feb 12, 2018. Pre-Operative Diagnosis Osteomyelitis Left 1st, 2nd, and 3rd toes with gangrene Post-Operative Diagnosis Same Procedure(s) Performed TMA of left first toe Toe amp of left second and third toes Application of wound vac, 6x2x1.[address] Sole Seamer Surgeon(s) Dr. Morgan Estimated Blood Loss 25 Specimens toes 1,2,3 Drains None Anesthesia Type General Complication(s) none Disposition Recovery Room / PACU Indications Mr. Miles is a 48-year-old gentleman with left great, second, and third toe osteomyelitis causing him a great deal of pain. Description of Procedure The patient's left foot was prepped and draped in a sterile fashion. On the great toe an incision was made circumferentially around the proximal phalanx and extended medially to the metatarsal head. Dissection was carried out to the bone with a scalpel. Periosteal elevators were then used to expose the metatarsal head. The great toe was disarticulated at the metatarsal phalangeal joint and a bone saw was used to excise the distal metatarsal. A large sesamoid bone was also removed at this time. Attention was then turned to the second and third toes which had distal ischemia. [place] incisions were made and the subcutaneous tissue was divided. The bones were divided using bone cutters at the level of the middle phalanxes. The rough edges were smoothed with rongeurs and a rasp. The tissue over the second and third toes was then reapproximated using nylon sutures. A silver wound VAC was then applied to the transmetatarsal amputation of the great toe with a small amount of Adaptic at the base. The VAC was placed to -125 mmHg and was holding suction at the conclusion of the case. The patient tolerated the procedure well. Dr. Lane was present for the entirety of the case I attest to the content of the Intraoperative Record and any orders documented therein. Any exceptions are noted below.
--- NOTE | 2018-02-12 14:44 | Anesthesiology Progress Note ---
Anesthesia Post Op Note Date & Time Feb 12, 2018 at 14:44 Vital Signs Pain Intensity: 5.0 Vital Signs Past 12 Hours Date Time Temp Pulse Resp B/P (MAP) Pulse Ox O2 Delivery O2 Flow Rate FiO2 02/12/18 14:30 89 23 86/54 97 Nasal Cannula 2 Oxymask 02/12/18 14:20 85 16 91/63 98 Nasal Cannula 2 Oxymask 02/12/18 14:10 83 10 94/67 97 Nasal Cannula 2 Oxymask 02/12/18 14:00 81 11 103/77 98 Nasal Cannula 2 Oxymask 02/12/18 13:50 75 15 98/65 96 Nasal Cannula 2 Oxymask 02/12/18 13:40 72 7 101/76 100 Nasal Cannula 2 Oxymask 02/12/18 13:30 75 14 103/71 100 Oxymask 10 02/12/18 13:24 36.4 81 8 97/62 94 Oxymask 10 02/12/18 09:00 96 Room Air 02/12/18 07:26 36.8 80 18 101/69 (80) 95 Notes Mental Status: alert / awake / arousable, participated in evaluation Pt Amnestic to Procedure: Yes Nausea / Vomiting: adequately controlled Pain: adequately controlled Airway Patency, RR, SpO2: stable & adequate BP & HR: stable & adequate Hydration State: stable & adequate Anesthetic Complications: no major complications apparent
[2018-02-12] MEDS: ASPIRIN 81 MG ECTAB PO SCH (15:04)
[2018-02-12] MEDS: FERROUS SULFATE 325 MG TAB PO SCH (15:08)
[2018-02-12] MEDS: QUETIAPINE FUMARATE 200 MG TAB PO SCH ×2 (15:44→20:32)
[2018-02-12] MEDS: CITALOPRAM 20 MG TAB PO SCH (15:59)
--- NOTE | 2018-02-12 16:50 | Critical Care Progress Note ---
Critical Care Progress Note Date of Service Feb 12, 2018. ICU Day ICU Day Number: [address] Serna Subjective 48 yo male is transferred back to the ICU following left lower extremity digital amputation. Followed by ICU for post procedure blood pressure monitoring. The patient is a poorly controlled diabetic that presented with osteomyelitis of lower ext. digits. Objective Patient was aggressive and uncooperative--unable to obtain physical exam or review of systems. Assessment & Plan 48 yo male is transferred back to the ICU following left lower extremity digital amputation. Followed by ICU for post procedure blood pressure monitoring. The patient is a poorly controlled diabetic that presented with osteomyelitis of lower ext. digits. Neuro - Bipolar-- continue home medications: Trazodone, Seroquel, Celexa - Chronic pain syndrome--continue gabapentin 600 mg BID Cardio - Patient has had episodes of hypotension, was brought to the ICU, post op for BP monitoring - History of acute MD, 4 PURVI placed on 12/2017 - Subsequent ischemic cardiomyopathy--ECHO demonstrated EF of 40% - Continue home medications; Brillinta, Ramipril, metoprolol, atorvastatin, ASA Pulm - 95 % on RA GI - AST 149, ALT 255, ALP 510 - Continue probiotic - Flomax .4 mg PO daily ID - Left 1st, 2nd, and 3rd gangrenous toes - TMA of left first toe - Toe amp of left second and third toes - Application of wound vac, 6x2x1.5 - Continue Vanc/Zosyn Endo - Poorly controlled diabetic - Cont. Novolog per sliding scale DVT - Cont heparin 5000BID Lines - Peripheral line, left foot wound vac Code - Full I was called to the room by the patient's nurse to assist with the patient, as he was becoming agitated. She remarked that he was verbally threatening her and had disconnected his IV and was out of bed ambulating on his recently operated foot. When I entered the room, the patient said that he was protesting his current pain regimen directed by the surgeon. The patient said "I've had this fucking medicine before and it don't work. So if that fucking bitch wants me to be in pain, I will be in pain." I concluded that the patient was refusing to sit down, as to self-inflict pain. I attempted to reason with the patient that ambulating on the foot could cause harm, disrupt the wound vacuum and potentially delay healing. The patient respond "I'm not your fucking child. I can do what I like to my foot." At that point, the patient sat down at the end of the bed and I left the returned to the nursing station. Approximately 15 minutes later, the patient was up walking around again. When I went in the room, he said "If I see any of you on the street, you all are . If that one was mine" gesturing at the nurse sitting at the nursing station, "I would fucking kill her." At that point, I retreated from the room to seek the assistance from my attending, Dr. Serna. Moments later as we made a turn around the nursing toward to the patient's room, we found the patient outside the threshold of his doorway, yelling profanity at the nursing staff, gesturing with a cup coffee in hand. Dr. Serna then directed the patient to sit down. As the Dr. Serna approached the doorway, the patient lunged forward threatening to spit in his face. Dr. Serna attempted to reach for the coffee and to direct the patient to the room and back in bed. The patient threw the cup coffee on Dr. Serna and began pushing him. At that point, Dr. Serna asked for a code hall to be called. I assisted Dr. Serna in moving the patient and restraining in his bed. Hospital security subsequently cuffed the patient to the bed. Resident Physician Supervision Note: Dr. Sweeney was resident physician during the care of the patient. I attempted to separately evaluate patient, please refer to the documentation. I discussed the treatment plan with the resident and agree with the findings as documented above. Documented By: Pollo Serna DO Consults & Procedures Consultants: Dr. Ariza, vascular surgery Procedures: TMA of left first toe Toe amp of left second and third toes Application of wound vac, 6x2x1.5 Data Medications: Current Inpatient Medications Medications (Trade) Dose Ordered Sig/Alvonne Route Start Time Stop Time Status Last Admin Dose Admin Heparin Sodium (Porcine) (Heparin Sq 5000 Unit/0.5ml) 5,000 unit Q12H SQ 02/07/18 09:00 03/09/18 08:59 02/09/18 21:06 5,000 UNIT Lorazepam (Ativan Inj) 0.5 mg Q4H PRN IV 02/07/18 03:30 03/09/18 03:29 Vancomycin HCl (Consult) 1 ea UD PRN N/A 02/07/18 03:30 03/09/18 03:29 Piperacillin Sod/ Tazobactam Sod 3.375 gm/Dextrose 115 ml @ 28.75 mls/ hr Q8H IV 02/07/18 10:00 02/17/18 09:59 02/12/18 16:04 28.75 MLS/HR Miscellaneous Information (Consult) 1 ea UD PRN N/A 02/07/18 03:30 03/09/18 03:29 Ondansetron HCl (Zofran Inj) 4 mg Q6H PRN IV 02/07/18 03:30 03/09/18 03:29 Insulin Aspart (novoLOG ASPART) SLIDING SCALE If C... ACHS SC 02/07/18 06:45 03/09/18 06:44 02/12/18 16:03 5 UNITS Glucose (Glucose 40% Gel) 15-30 GRAMS 15 GRAMS... UD PRN PO 02/07/18 03:30 03/09/18 03:29 Glucose (Glucose Chew Tab) 4-8 Tablets 4 Tabl... UD PRN PO 02/07/18 03:30 03/09/18 03:29 Dextrose (Dextrose 50% 50ML Syringe) 25-50ML OF 50% DW IV FOR... UD PRN IV 02/07/18 03:30 03/09/18 03:29 Glucagon (Glucagon Inj) 1 mg UD PRN SQ 02/07/18 03:30 03/09/18 03:29 Carbohydrates (Carbohydrates For Hypoglycemia) 15-30 GRAMS 15 grams if BSG 54-69... UD PRN PO 02/07/18 03:30 03/09/18 03:29 Oxycodone HCl (Roxicodone Immediate Rel Tab) 15 mg Q6H PRN PO 02/07/18 03:45 02/21/18 03:44 02/12/18 16:04 15 MG Albuterol (Ventolin Hfa Inhaler) 2 puffs Q6H PRN INH 02/07/18 04:15 03/09/18 04:14 Aspirin (Ecotrin Tab) 81 mg DAILY PO 02/07/18 09:00 03/09/18 08:59 02/11/18 08:06 81 MG Atorvastatin Calcium (Lipitor Tab) 40 mg HS PO 02/07/18 21:00 03/09/18 20:59 02/11/18 21:23 40 MG Citalopram Hydrobromide (celeXA TAB) 20 mg DAILY PO 02/07/18 09:00 03/09/18 08:59 02/12/18 15:59 20 MG Gabapentin (Neurontin Tab) 600 mg TID PO 02/07/18 09:00 03/09/18 08:59 02/12/18 15:59 600 MG Quetiapine Fumarate (seroQUEL TAB) 200 mg QAM PO 02/07/18 09:00 03/09/18 08:59 02/11/18 08:06 200 MG Quetiapine Fumarate (seroQUEL TAB) 400 mg HS PO 02/07/18 21:00 03/09/18 20:59 02/11/18 21:22 400 MG Tamsulosin HCl (Flomax Cap) 0.4 mg HS PO 02/07/18 21:00 03/09/18 20:59 02/11/18 21:23 0.4 MG Ticagrelor (Brilinta Tab) 90 mg BID PO 02/07/18 09:00 03/09/18 08:59 02/11/18 19:22 90 MG Trazodone HCl (Desyrel Tab) 150 mg HS PO 02/07/18 21:00 03/09/18 20:59 02/11/18 21:22 150 MG Miscellaneous Information (Order Awaiting Action) 1 ea QS N/A 02/07/18 08:00 03/09/18 07:59 Lactobacillus Acidophilus (Floranex Tab) 4 tab TIDM PO 02/07/18 07:15 03/09/18 07:14 02/12/18 15:59 4 TAB Ferrous Sulfate (Feosol Tab) 325 mg QAM PO 02/07/18 09:00 03/09/18 08:59 02/11/18 08:06 325 MG Hydromorphone HCl (Dilaudid Inj) 1 mg Q2HWA PRN IV 02/07/18 09:45 02/21/18 09:44 02/12/18 15:24 1 MG Enteral Nutritional Formula (Boost Glucose Control) 1 can BIDM PO 02/07/18 16:30 03/09/18 16:29 02/09/18 16:55 1 CAN Metoprolol Succinate (Toprol Xl Tab) 25 mg DAILY PO 02/10/18 08:00 03/12/18 08:59 02/12/18 08:03 25 MG Enalapril Maleate (Vasotec Tab) 20 mg DAILY PO 02/10/18 08:00 03/12/18 08:59 02/12/18 08:03 20 MG Gadobutrol (Gadavist) 6.5 mmol UD PRN IV 02/09/18 14:30 02/13/18 14:29 Insulin Glargine (Lantus Solostar Pen) 15 units QAM SC 02/12/18 08:00 03/11/18 08:59 Vancomycin HCl 1000 mg/Sodium Chloride 270 ml @ 125 mls/hr Q8H IV 02/11/18 20:00 02/17/18 19:59 02/12/18 03:32 125 MLS/HR Fentanyl Citrate (Fentanyl Inj) 25 mcg Q5M PRN IV 02/12/18 13:30 02/12/18 17:00 02/12/18 14:47 25 MCG Naloxone HCl (Narcan Inj) 0.2 mg Q2M PRN IV 02/12/18 13:30 02/12/18 17:00 Flumazenil (Romazicon Inj) 0.2 mg Q2M PRN IV 02/12/18 13:30 02/12/18 17:00 Ondansetron HCl (Zofran Inj) 4 mg ONE PRN IV 02/12/18 13:30 02/12/18 17:00 Labetalol HCl (Normodyne IV) 5 mg Q5M PRN IV 02/12/18 13:30 02/12/18 17:00 Ephedrine Sulfate (EpHEDrine SULFATE INJ) 5 mg Q5M PRN IV 02/12/18 13:30 02/12/18 17:00 Atropine Sulfate (Atropine Sulfate 0.1mg/ml Inj) 0.5 mg Q1M PRN IV 02/12/18 13:30 02/12/18 17:00 Hydromorphone HCl (Dilaudid Inj) 0.25 mg UD PRN IV 02/12/18 13:45 02/12/18 18:45 02/12/18 14:42 0.25 MG I & O: 24-Hour Column 02/13/18 08:00 Intake Total 1000 ml Output Total 50 ml Balance 950 ml Vital Signs: Date Time Temp Pulse Resp B/P (MAP) Pulse Ox O2 Delivery O2 Flow Rate FiO2 02/12/18 16:13 92 19 103/61 (75) 94 Room Air 02/12/18 16:00 Room Air 02/12/18 15:45 36.6 86 20 100/62 (75) 95 Room Air 02/12/18 15:15 90 20 101/61 (74) 96 Room Air 02/12/18 15:07 82 21 93/51 97 Nasal Cannula 2 Oxymask 02/12/18 15:01 84 21 90/56 97 Nasal Cannula 2 Oxymask 02/12/18 14:50 87 11 87/58 94 Nasal Cannula 2 Oxymask 02/12/18 14:40 36.8 89 21 93/61 98 Nasal Cannula 2 Oxymask 02/12/18 14:30 89 23 86/54 97 Nasal Cannula 2 Oxymask 02/12/18 14:20 85 16 91/63 98 Nasal Cannula 2 Oxymask 02/12/18 14:10 83 10 94/67 97 Nasal Cannula 2 Oxymask 02/12/18 14:00 81 11 103/77 98 Nasal Cannula 2 Oxymask 02/12/18 13:50 75 15 98/65 96 Nasal Cannula 2 Oxymask 02/12/18 13:40 72 7 101/76 100 Nasal Cannula 2 Oxymask 02/12/18 13:30 75 14 103/71 100 Oxymask 10 02/12/18 13:24 36.4 81 8 97/62 94 Oxymask 10 02/12/18 09:00 96 Room Air 02/12/18 07:26 36.8 80 18 101/69 (80) 95 02/12/18 00:00 Room Air 02/11/18 22:55 37.0 91 18 104/70 (81) 94 Room Air Laboratory Results: Last 24 Hours Test 02/11/18 20:06 02/12/18 05:45 02/12/18 07:34 02/12/18 10:42 Bedside Glucose 188 mg/dl 139 mg/dl 120 mg/dl White Blood Count 5.90 K/uL Red Blood Count 3.66 M/uL Hemoglobin 9.7 g/dL Hematocrit 29.6 % Mean Corpuscular Volume 80.9 fL Mean Corpuscular Hemoglobin 26.5 pg Mean Corpuscular Hemoglobin Concent 32.8 g/dl Platelet Count 205 K/uL Mean Platelet Volume 11.9 fL Neutrophils (%) (Auto) 63.1 % Lymphocytes (%) (Auto) 25.4 % Monocytes (%) (Auto) 7.5 % Eosinophils (%) (Auto) 3.2 % Basophils (%) (Auto) 0.5 % Neutrophils # (Auto) 3.72 K/uL Lymphocytes # (Auto) 1.50 K/uL Monocytes # (Auto) 0.44 K/uL Eosinophils # (Auto) 0.19 K/uL Basophils # (Auto) 0.03 K/uL RDW Standard Deviation 48.7 fL RDW Coefficient of Variation 16.6 % Immature Granulocyte % (Auto) 0.3 % Immature Granulocyte # (Auto) 0.02 K/uL Erythrocyte Sedimentation Rate > 90 mm/hr Sodium Level 136 mmol/L Potassium Level 4.4 mmol/L Chloride Level 108 mmol/L Carbon Dioxide Level 20 mmol/L Anion Gap 8.0 mmol/L Blood Urea Nitrogen 22 mg/dl Creatinine 0.87 mg/dl Est Creatinine Clear Calc Drug Dose 102.9 ml/min Estimated GFR () 119.1 Estimated GFR (Non- 102.8 BUN/Creatinine Ratio 25.2 Random Glucose 142 mg/dl Calcium Level 8.6 mg/dl Total Bilirubin 0.7 mg/dl Direct Bilirubin 0.3 mg/dl Aspartate Amino Transf (AST/SGOT) 149 U/L Alanine Aminotransferase (ALT/SGPT) 255 U/L Alkaline Phosphatase 510 U/L C-Reactive Protein 7.32 mg/dl Total Protein 7.4 gm/dl Albumin 2.5 gm/dl Test 02/12/18 13:36 Bedside Glucose 122 mg/dl
[2018-02-12] MEDS ORDERED: HYDROmorphone INJ 0.5 MG/0.5 ML SYR IV STA (16:55)
--- NOTE | 2018-02-12 17:35 | Hospitalist Progress Note ---
Hospitalist Progress Note Date of Service Feb 12, 2018. Subjective Pt evaluation today including: conversation w/ patient, conversation w/ business consultant (Posting Clerk) Voiding: no voiding problems When I saw the patient he had recently returned from surgery was complaining of a lot of pain in the foot. He was agitated with the nurses for not giving him pain meds sooner than when they were scheduled for, and threatened to put on his clothes and walk out the door. When I was seen him, he had actually already removed the sterile dressing from his foot and had blood dripping down his foot onto the bed. He otherwise was feeling fine, denied headache or chest pain, denies shortness of breath, denies abdominal pain. He was seen in the intensive care unit as he was transferred there after surgery to monitor closely for mildly reduced blood pressures and recent history of PA with stent placement. He was having no arrhythmia on the monitor , and blood pressures were quite stable. He reports that at home, he takes oxycodone 30 mg 4 times a day and that is closely regulated by his prescribing physician. Upon review of the [place] drug database, I can only find that he takes 15 mg 4 times a day and it was most recently prescribed on 01/13/18. All Other Systems: Reviewed and Negative Objective Vital Signs Date Time Temp Pulse Resp B/P (MAP) Pulse Ox O2 Delivery O2 Flow Rate FiO2 02/12/18 16:13 92 19 103/61 (75) 94 Room Air 02/12/18 16:00 Room Air 02/12/18 15:45 36.6 86 20 100/62 (75) 95 Room Air 02/12/18 15:15 90 20 101/61 (74) 96 Room Air 02/12/18 15:07 82 21 93/51 97 Nasal Cannula 2 Oxymask 02/12/18 15:01 84 21 90/56 97 Nasal Cannula 2 Oxymask 02/12/18 14:50 87 11 87/58 94 Nasal Cannula 2 Oxymask 02/12/18 14:40 36.8 89 21 93/61 98 Nasal Cannula 2 Oxymask 02/12/18 14:30 89 23 86/54 97 Nasal Cannula 2 Oxymask 02/12/18 14:20 85 16 91/63 98 Nasal Cannula 2 Oxymask 02/12/18 14:10 83 10 94/67 97 Nasal Cannula 2 Oxymask 02/12/18 14:00 81 11 103/77 98 Nasal Cannula 2 Oxymask 02/12/18 13:50 75 15 98/65 96 Nasal Cannula 2 Oxymask 02/12/18 13:40 72 7 101/76 100 Nasal Cannula 2 Oxymask 02/12/18 13:30 75 14 103/71 100 Oxymask 10 02/12/18 13:24 36.4 81 8 97/62 94 Oxymask 10 02/12/18 09:00 96 Room Air 02/12/18 07:26 36.8 80 18 101/69 (80) 95 02/12/18 00:00 Room Air 02/11/18 22:55 37.0 91 18 104/70 (81) 94 Room Air Physical Exam General Appearance: WD/WN, no apparent distress Eyes: normal inspection, EOMI, sclerae normal ENT: hearing grossly normal Neck: trachea midline Respiratory/Chest: lungs clear, normal breath sounds, no respiratory distress, no accessory muscle use Cardiovascular: regular rate, rhythm, no edema, no murmur Abdomen: normal bowel sounds, non tender, soft, no organomegaly Extremities: no pedal edema, no calf tenderness, + pertinent finding (Left foot with great toe amputated, and second and third distal phalanx amputated with Xeroform gauze in place, but 4 x 4's and Kerlix gauze removed and thrown on the floor, fresh blood leaking from surgical site dripping down foot) Neurologic/Psychiatric: alert, oriented x 3, + pertinent finding (Angry affect) Skin: normal color, warm/dry, no rash Laboratory Results Last 24 Hours Test 02/11/18 20:06 02/12/18 05:45 02/12/18 07:34 02/12/18 10:42 Bedside Glucose 188 mg/dl 139 mg/dl 120 mg/dl White Blood Count 5.90 K/uL Red Blood Count 3.66 M/uL Hemoglobin 9.7 g/dL Hematocrit 29.6 % Mean Corpuscular Volume 80.9 fL Mean Corpuscular Hemoglobin 26.5 pg Mean Corpuscular Hemoglobin Concent 32.8 g/dl Platelet Count 205 K/uL Mean Platelet Volume 11.9 fL Neutrophils (%) (Auto) 63.1 % Lymphocytes (%) (Auto) 25.4 % Monocytes (%) (Auto) 7.5 % Eosinophils (%) (Auto) 3.2 % Basophils (%) (Auto) 0.5 % Neutrophils # (Auto) 3.72 K/uL Lymphocytes # (Auto) 1.50 K/uL Monocytes # (Auto) 0.44 K/uL Eosinophils # (Auto) 0.19 K/uL Basophils # (Auto) 0.03 K/uL RDW Standard Deviation 48.7 fL RDW Coefficient of Variation 16.6 % Immature Granulocyte % (Auto) 0.3 % Immature Granulocyte # (Auto) 0.02 K/uL Erythrocyte Sedimentation Rate > 90 mm/hr Sodium Level 136 mmol/L Potassium Level 4.4 mmol/L Chloride Level 108 mmol/L Carbon Dioxide Level 20 mmol/L Anion Gap 8.0 mmol/L Blood Urea Nitrogen 22 mg/dl Creatinine 0.87 mg/dl Est Creatinine Clear Calc Drug Dose 102.9 ml/min Estimated GFR () 119.1 Estimated GFR (Non- 102.8 BUN/Creatinine Ratio 25.2 Random Glucose 142 mg/dl Calcium Level 8.6 mg/dl Total Bilirubin 0.7 mg/dl Direct Bilirubin 0.3 mg/dl Aspartate Amino Transf (AST/SGOT) 149 U/L Alanine Aminotransferase (ALT/SGPT) 255 U/L Alkaline Phosphatase 510 U/L C-Reactive Protein 7.32 mg/dl Total Protein 7.4 gm/dl Albumin 2.5 gm/dl Test 02/12/18 13:36 Bedside Glucose 122 mg/dl Assessment and Plan This pt is a 48 yo male with a h/o DMII, smoking, CAD s/p 4 PURVI in 12/2017, ischemic CM with EF 40%, HTN, dyslipidemia, depression, COPD, chronic neuropathic pain, transferred from [place] for hypotensive shock-septic vs hypovolemic Hypotensive shock/osteomyelitis left first second third toes--septic from toe infection and less likely UTI vs hypovolemic from hyperosmolar hyperglycemia. I do not suspect he has infected hardware in lumbar spine, however he does have left toes with gangrene. Had abscess at back surgical site in November that was I&D'd and treated with IV abx for weeks, followed by po doxy on which he continued up until the day of admission. Toes gangrenous possibly from stubbing toes just prior to admission for PA, plus small vessel disease, ?septic emboli from previous sepsis with MRSA from back? Coag neg Staph on wound cx here but dry gangrene so just a skin culture essentially Had a NEHEMIAH done at [place] in 12/2017 and was on IV abx prolonged-question if had endocarditis then-still awaiting records No leukocytosis, no fevers now, toes are not healing after many weeks, and MRI left foot with evidence of osteomyelitis of those toes and septic joint of the first MTP ESR elevated at 71, CRP elevated at 4.58--> CRP now greater than 90, CRP elevated 7.32 UA here is normal -now off pressors, BPs remain acceptable -Restarted Toprol and YESIKA inhibitor -requested BCxs and Ur cx from [place]-still awaiting results -request NEHEMIAH record from [place]-still awaiting results -Follow ESR, CRP -continue Vancomycin and Zosyn -ID following, will give final treatment recommendations for antibiotics after wound culture from amputation is completed Osteomyelitis/gangrene of 1st, 2nd and 3rd toes on left foot-present for weeks, getting worse, has severe neuropathic pain at times. CINTHYA here shows likely decreased flow in left leg, Arterial Dopplers without significant blockage, has palpable pulses femoral/popliteal/pedal bilat -consult vascular surgery for their recommendations-appreciate surgical management with transmetatarsal amputation of the left first, and toe amputation of the second and third toes on Monday 02/12 -No plans for angioplasty -Antibiotic plans to follow as above -Pain control with IV Dilaudid 1 mg every 2 hours as needed, will increase oxycodone to 20 mg p.o. every 6 hours as needed pain CAD s/p 4 PURVI for recent STEMI/HTN/elevated troponin/Ischemic CM/Chronic systolic CHF--last EF 40% as per pt-need records to confirm-still awaiting for these. No evidence of volume overload at this time. Very stable in the postoperative period, no evidence of perioperative cardiovascular complication at this time Continue aspirin 81 mg daily and Brilinta 90 mg p.o. twice daily. -Continue YESIKA inhibitor and Toprol-XL 25 mg daily Diabetes mellitus II, on intermediate insulin and metformin at home, not well controlled, HgbA1C here 8.4%. With glucose in the 500s the day of admission and likely had severe dehydration and hypovolemia from hyperglycemia. Resuscitated with 3 L NS at [place] Hyperglycemia now improving with adding Lantus -Continue Lantus to 15 units daily -continue SSI -appreciate CDE consult -Restart metformin after discharge Hyperlipidemia--recent PURVI placed for severe CAD Continue atorvastatin 40 mg at bedtime, however with LFTs up, will need to carefully watch transaminases Elevated LFTs- AST,ALT,ALk Phos all elevated, TBili normal. All continue to trend upward during admission. Patient reports chronic elevation of LFTs thought to be due to his psychiatric medications-I do not have old labs as these were drawn in [place]. Perhaps has some element of shock liver from the profound hypotension on admission. Was also recently started on high intensity atorvastatin, as well as doxycycline which could also be contributing Is not volume overloaded so I do not suspect hepatic congestion from CHF Liver US with fatty liver -Continue to trend LFTs -Continue statin for now given recent STEMI and stent placement -Continue Seroquel at same chronic dose for many years -Holding doxycycline while on vancomycin Bipolar d/o-stable, although with some behavioral disturbances and agitation here-does not have delirium Continue Celexa 20 mg daily, Seroquel and trazodone. COPD--stable, quit smoking 1 month ago continue pro-air HFA. Chronic pain syndrome--lower back Continue gabapentin 600 mg p.o., but increased from twice daily to 3 times daily , and oxycodone as above Dilaudid IV prn severe pain BPH-- Continue Flomax 0.4 mg p.o. daily, but moved to bedtime. Appetite stimulation-- Continue Megace when brought in from home. Proph-heparin SQ Dispo-remains in ICU for postoperative care for monitoring for mildly low blood pressures intraoperatively in the setting of chronic systolic CHF and recent STEMI with stent placement
[2018-02-12] MEDS ORDERED: DiphenhydrAMINE HCL 50 MG/ML VIAL ONE (18:10)
[2018-02-12] MEDS ORDERED: HALOPERIDOL LACTATE 5 MG/ML 1 ML VIAL ONE (18:11)
[2018-02-12] MEDS: LORAZEPAM 2 MG/ML 1 ML VIAL IV PRN (18:17)
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
[2018-02-12] MEDS: TRAZODONE HCL 100 MG TAB PO SCH (20:30)
[2018-02-12] MEDS: TAMSULOSIN HCL 0.4 MG CAP PO SCH (20:30)
[2018-02-12] MEDS: ATORVASTATIN 20 MG TAB PO SCH (20:31)
[2018-02-13] VITALS (14 sets, daily range): BP systolic 98–116; BP diastolic 58–73; PULSE 83–104; TEMP 36.8–37.2; O2SAT 91–95
[2018-02-13] MEDS: HYDROmorphone INJ 0.5 MG/0.5 ML SYR IV PRN ×9 (00:01→23:43)
[2018-02-13] MEDS: PIPERACILL/TAZOBAC IV 3.375 GM in DEXTROSE 5% 100ML 100 ML IV SCH ×3 (01:48→18:35)
[2018-02-13] MEDS: VANCOMYCIN IV 1,000 MG in SODIUM CHLORIDE 0.9% 250ML 250 ML IV SCH ×2 (04:12→13:45)
[2018-02-13 05:29] LABS: BASO % 0.2 %; BASO ABS # 0.01 K/uL (0-0.2); EOS % 3.7 %; HEMATOCRIT 27.8 % (42-52); IG# 0.01 K/uL (0.00-0.02); LYMPH % 26.3 %; LYMPH ABS # 1.41 K/uL (1.2-3.4); MEAN CORPUSCULAR HEMOGLOBIN 26.5 pg (25-34); MEAN CORPUSCULAR HGB CONC 32.4 g/dl (32-36); MEAN PLATELET VOLUME 11.1 fL (7.4-10.4); MONO % 8.9 %; MONO ABS # 0.48 K/uL (0.11-0.59); NEUT % 60.7 %; NEUT ABS # 3.26 K/uL (1.4-6.5); PLATELET COUNT 174 K/uL (130-400); RED CELL DISTRIBUTION WIDTH CV 16.8 % (11.5-14.5); RED CELL DISTRIBUTION WIDTH SD 50.4 fL (36.4-46.3); WHITE BLOOD COUNT 5.37 K/uL (4.8-10.8)
[2018-02-13 05:59] LABS: ALBUMIN 2.5 gm/dl (3.4-5.0); CALCIUM 8.9 mg/dl (8.5-10.1); CREATININE 0.85 mg/dl (0.60-1.40); POTASSIUM 4.5 mmol/L (3.5-5.1); TOTAL PROTEIN 7.4 gm/dl (6.4-8.2)
[2018-02-13] MEDS: BOOST GLUCOSE CONTROL VANILLA PO SCH (07:46)
[2018-02-13] MEDS: LACTOBACILLUS ACIDOPHILUS (FLORANEX) TAB PO SCH ×3 (08:06→18:26)
[2018-02-13] MEDS: GABAPENTIN 600 MG TAB PO SCH ×3 (08:07→21:17)
[2018-02-13] MEDS: QUETIAPINE FUMARATE 200 MG TAB PO SCH ×2 (08:07→21:17)
[2018-02-13] MEDS: ASPIRIN 81 MG ECTAB PO SCH (08:07)
[2018-02-13] MEDS: ENALAPRIL MALEATE 10 MG TAB PO SCH (08:08)
[2018-02-13] MEDS: FERROUS SULFATE 325 MG TAB PO SCH (08:08)
[2018-02-13] MEDS: TICAGRELOR 90 MG TAB PO SCH ×2 (08:08→21:19)
[2018-02-13] MEDS: METOPROLOL SUCC 25MG EXT REL TAB PO SCH (08:09)
[2018-02-13] MEDS: OXYCODONE HCL IR 5 MG TAB (IMMEDIATE RELEASE) PO PRN (09:48)
[2018-02-13] MEDS: INSULIN ASPART 100 UNITS/ML 3 ML PEN SC SCH ×5 (09:50→21:00)
[2018-02-13] MEDS: HEPARIN SOD 5000 UNIT/0.5 ML CARP SQ SCH ×2 (09:51→21:00)
[2018-02-13] MEDS: INSULIN GLARGINE SOLOSTAR 100 UNITS/ML 3 ML PEN SC SCH (09:51)
[2018-02-13] MEDS: CITALOPRAM 20 MG TAB PO SCH (09:52)
[2018-02-13] MEDS ORDERED: MAGNESIUM SULFATE 1GM / D5W 100 ML IV ONE (10:00)
[2018-02-13] MEDS ORDERED: VANCOMYCIN TROUGH ONE (11:30)
[2018-02-13] MEDS: KETOROLAC TROMETHAMINE 30 MG/ML VIAL IV PRN (13:43)
[2018-02-13] MEDS ORDERED: BOOST GLUCOSE CONTROL VANILLA PO SCH (14:00)
[2018-02-13] MEDS ORDERED: KETOROLAC TROMETHAMINE 30 MG/ML VIAL IV STA (14:28)
--- NOTE | 2018-02-13 15:41 | Pharmacy Progress Note ---
Pharmacy Abx Dose Short Note Date of Service Feb 13, 2018. Assessment & Plan Assessment Item Value Date Time Vancomycin Level Trough 14.1 mcg/ml 02/13/18 1134 48 year old male receiving Vancomycin Day # 8 of antimicrobial therapy. Plan Vancomycin * Trough level of 14.1 mcg/mL is slightly subtherapeutic. * Change to 1250 mg IV every 8 hours * Goal trough level : 15 to 20 mcg/mL * Trough level ordered for: 02/14/18 @ 1930 Pharmacy will continue to follow and will adjust dose/frequency as necessary. Thank you.
[2018-02-13] MEDS: VANCOMYCIN IV 1,250 MG in SODIUM CHLORIDE 0.9% 250ML 250 ML IV SCH (20:09)
[2018-02-13] MEDS: TRAZODONE HCL 100 MG TAB PO SCH (21:15)
[2018-02-13] MEDS: TAMSULOSIN HCL 0.4 MG CAP PO SCH (21:16)
[2018-02-13] MEDS: ATORVASTATIN 20 MG TAB PO SCH (21:16)
[2018-02-14] MEDS: HYDROmorphone INJ 0.5 MG/0.5 ML SYR IV PRN ×11 (02:13→23:54)
[2018-02-14] MEDS: PIPERACILL/TAZOBAC IV 3.375 GM in DEXTROSE 5% 100ML 100 ML IV SCH ×3 (02:14→18:03)
[2018-02-14] MEDS: VANCOMYCIN IV 1,250 MG in SODIUM CHLORIDE 0.9% 250ML 250 ML IV SCH ×3 (04:23→21:11)
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
[2018-02-14 07:08] LABS: ALBUMIN 2.3 gm/dl (3.4-5.0); CALCIUM 8.9 mg/dl (8.5-10.1); CREATININE 1.05 mg/dl (0.60-1.40); POTASSIUM 4.1 mmol/L (3.5-5.1); TOTAL PROTEIN 7.2 gm/dl (6.4-8.2)
[2018-02-14] MEDS: LACTOBACILLUS ACIDOPHILUS (FLORANEX) TAB PO SCH ×3 (08:36→17:52)
[2018-02-14] MEDS: GABAPENTIN 600 MG TAB PO SCH ×3 (08:40→21:00)
[2018-02-14] MEDS: CITALOPRAM 20 MG TAB PO SCH (08:41)
[2018-02-14] MEDS: ENALAPRIL MALEATE 10 MG TAB PO SCH (08:41)
[2018-02-14] MEDS: TICAGRELOR 90 MG TAB PO SCH ×2 (08:42→21:00)
[2018-02-14] MEDS: ASPIRIN 81 MG ECTAB PO SCH (08:42)
[2018-02-14] MEDS: FERROUS SULFATE 325 MG TAB PO SCH (08:43)
[2018-02-14] MEDS: QUETIAPINE FUMARATE 200 MG TAB PO SCH ×2 (08:44→21:00)
[2018-02-14] MEDS: METOPROLOL SUCC 25MG EXT REL TAB PO SCH (08:44)
[2018-02-14] MEDS: INSULIN ASPART 100 UNITS/ML 3 ML PEN SC SCH ×4 (08:49→21:07)
[2018-02-14] MEDS: HEPARIN SOD 5000 UNIT/0.5 ML CARP SQ SCH ×2 (08:51→21:09)
[2018-02-14] MEDS: INSULIN GLARGINE SOLOSTAR 100 UNITS/ML 3 ML PEN SC SCH (08:51)
[2018-02-14] MEDS ORDERED: INSULIN GLARGINE SOLOSTAR 100 UNITS/ML 3 ML PEN SC ONE (10:15)
[2018-02-14 15:45] VITALS: BP 121/80; PULSE 94; TEMP 37; O2SAT 97
[2018-02-14] MEDS ORDERED: VANCOMYCIN TROUGH ONE (19:30)
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
[2018-02-14] MEDS: TAMSULOSIN HCL 0.4 MG CAP PO SCH (21:00)
[2018-02-14] MEDS: TRAZODONE HCL 100 MG TAB PO SCH (21:00)
[2018-02-14] MEDS: KETOROLAC TROMETHAMINE 30 MG/ML VIAL IV PRN (21:03)
--- NOTE | 2018-02-14 21:57 | Pharmacy Progress Note ---
Pharmacy Antibiotic Prog Note Date of Service Feb 14, 2018. Subjective The patient is currently receiving 1250 mg iv q 8 hrs The patient is currently on day # 9 of IV therapy. Objective Height (Feet): 6 Height (Inches): 0.00 Weight (Kilograms): 69.300 Levels: Item Value Date Time Vancomycin Level Trough 19.4 mcg/ml 02/14/18 1906 Vancomycin Level Trough 14.1 mcg/ml 02/13/18 1134 Vancomycin Level Trough 13.9 mcg/ml 02/11/18 1129 Vancomycin Level Trough 10.6 mcg/ml 02/09/182021 Lab Results (24hrs): Test 02/14/18 06:05 02/14/18 16:58 02/14/18 19:06 02/14/18 20:16 Sodium Level 140 mmol/L (136-145) Potassium Level 4.1 mmol/L (3.5-5.1) Chloride Level 108 mmol/L (98-107) Carbon Dioxide Level 23 mmol/L (21-32) Anion Gap 9.0 mmol/L (3-11) Blood Urea Nitrogen 29 mg/dl (7-18) Creatinine 1.05 mg/dl (0.60-1.40) Est Creatinine Clear Calc Drug Dose 85.3 ml/min Estimated GFR () 97.5 Estimated GFR (Non- 84.1 BUN/Creatinine Ratio 27.4 (10-20) Random Glucose 200 mg/dl (70-99) Calcium Level 8.9 mg/dl (8.5-10.1) Magnesium Level 2.1 mg/dl (1.8-2.4) Total Bilirubin 0.7 mg/dl (0.2-1) Aspartate Amino Transf (AST/SGOT) 219 U/L (15-37) Alanine Aminotransferase (ALT/SGPT) 335 U/L (12-78) Alkaline Phosphatase 614 U/L (45-117) Total Protein 7.2 gm/dl (6.4-8.2) Albumin 2.3 gm/dl (3.4-5.0) Globulin 4.9 gm/dl (2.5-4.0) Albumin/Globulin Ratio 0.5 (0.9-2) Bedside Glucose 84 mg/dl (70-99) 179 mg/dl (70-99) Vancomycin Level Trough 19.4 mcg/ml (SEE COMMENT) Assessment & Plan Patient on vancomycin for wound infection/osteomyelitis of digits. Intraop cultures pending. Vancomycin: * Trough level came back therapeutic at ~19 mcg/ml (goal 15-20 mcg/ml); will continue current regimen * Will await final intraop cultures and if vancomycin is to be continued will plan to reorder another trough in 3-4 days * Scr starting to rise slightly today, will continue to follow Pharmacy will continue to follow and will adjust dose/frequency as necessary. Thank you
[2018-02-14 23:15] VITALS: BP 125/77; PULSE 91; TEMP 37.2; O2SAT 96
[2018-02-14 23:50] VITALS: O2SAT 96
[2018-02-15] MEDS: PIPERACILL/TAZOBAC IV 3.375 GM in DEXTROSE 5% 100ML 100 ML IV SCH ×3 (01:56→18:39)
[2018-02-15] MEDS: HYDROmorphone INJ 0.5 MG/0.5 ML SYR IV PRN ×10 (01:56→20:46)
[2018-02-15] MEDS: VANCOMYCIN IV 1,250 MG in SODIUM CHLORIDE 0.9% 250ML 250 ML IV SCH ×3 (05:12→21:13)
[2018-02-15] MEDS: KETOROLAC TROMETHAMINE 30 MG/ML VIAL IV PRN (05:12)
[2018-02-15 06:52] VITALS: BP 116/81; PULSE 78; TEMP 36.8; O2SAT 96
[2018-02-15 07:45] LABS: ALBUMIN 2.2 gm/dl (3.4-5.0); CALCIUM 8.3 mg/dl (8.5-10.1); CREATININE 1.05 mg/dl (0.60-1.40); POTASSIUM 4.2 mmol/L (3.5-5.1)
[2018-02-15] MEDS: ENALAPRIL MALEATE 10 MG TAB PO SCH (08:25)
[2018-02-15] MEDS: TICAGRELOR 90 MG TAB PO SCH ×2 (08:25→21:14)
[2018-02-15] MEDS: FERROUS SULFATE 325 MG TAB PO SCH (08:26)
[2018-02-15] MEDS: GABAPENTIN 600 MG TAB PO SCH ×3 (08:26→21:14)
[2018-02-15] MEDS: LACTOBACILLUS ACIDOPHILUS (FLORANEX) TAB PO SCH ×3 (08:26→18:31)
[2018-02-15] MEDS: CITALOPRAM 20 MG TAB PO SCH (08:26)
[2018-02-15] MEDS: METOPROLOL SUCC 25MG EXT REL TAB PO SCH (08:27)
[2018-02-15] MEDS: QUETIAPINE FUMARATE 200 MG TAB PO SCH ×2 (08:28→21:15)
[2018-02-15] MEDS: HEPARIN SOD 5000 UNIT/0.5 ML CARP SQ SCH ×2 (08:28→21:21)
[2018-02-15] MEDS: ASPIRIN 81 MG ECTAB PO SCH (08:28)
[2018-02-15] MEDS ORDERED: INSULIN GLARGINE SOLOSTAR 100 UNITS/ML 3 ML PEN SC SCH (09:00)
[2018-02-15] MEDS ORDERED: LORAZEPAM INJ 0.5 MG in SYRINGE 0.75 ML IV PRN (09:15)
[2018-02-15] MEDS: INSULIN GLARGINE SOLOSTAR 100 UNITS/ML 3 ML PEN SC SCH (09:28)
[2018-02-15] MEDS: INSULIN ASPART 100 UNITS/ML 3 ML PEN SC SCH ×4 (09:30→21:00)
[2018-02-15] MEDS: LORAZEPAM 2 MG/ML 1 ML VIAL IV PRN (09:31)
--- NOTE | 2018-02-15 10:18 | Anesthesiology Progress Note ---
Anesthesia Post Op Note Date & Time Feb 15, 2018 at 10:17 Vital Signs Pain Intensity: 8.0 Vital Signs Past 12 Hours Date Time Temp Pulse Resp B/P (MAP) Pulse Ox O2 Delivery O2 Flow Rate FiO2 02/15/18 08:30 Room Air 02/15/18 06:52 36.8 78 16 116/81 (93) 96 Room Air 02/14/18 23:50 96 Room Air 2.0 02/14/18 23:15 37.2 91 16 125/77 (93) 96 Room Air Notes Mental Status: alert / awake / arousable, participated in evaluation Pt Amnestic to Procedure: Yes Nausea / Vomiting: adequately controlled Pain: adequately controlled Airway Patency, RR, SpO2: stable & adequate BP & HR: stable & adequate Hydration State: stable & adequate Anesthetic Complications: no major complications apparent
--- NOTE | 2018-02-15 10:53 | Progress Note ---
Progress Note Date of Service: Feb 15, 2018. Subjective 48 yo m POD #3 after L 1st TMA and amputation 2nd and 3rd toes, seen in f/u today. Pt admits pain, but states otherwise feeling well. Objective Vital Signs Vital Signs Past 12 Hours Date Time Temp Pulse Resp B/P (MAP) Pulse Ox O2 Delivery O2 Flow Rate FiO2 02/15/18 08:30 Room Air 02/15/18 06:52 36.8 78 16 116/81 (93) 96 Room Air 02/14/18 23:50 96 Room Air 2.0 02/14/18 23:15 37.2 91 16 125/77 (93) 96 Room Air Exam CONST; A&O x3, NAD, chronicaly ill appearing male EXT: LLE wound vac in place. Changed today. Excellent granulation in wound, mild periwound maceration. 2nd and 3rd toes C/D/I with sutures. + tenderness. No erythema. Laboratory and Microbiology Results Past 24 Hours Test 02/14/18 12:09 02/14/18 16:58 02/14/18 19:06 02/14/18 20:16 Range/Units Bedside Glucose 179 84 179 70-99 mg/dl Vancomycin Level Trough 19.4 SEE COMMENT mcg/ml Test 02/15/18 06:51 Range/Units Sodium Level 137 136-145 mmol/L Potassium Level 4.2 3.5-5.1 mmol/L Chloride Level 108 98-107 mmol/L Carbon Dioxide Level 20 21-32 mmol/L Anion Gap 9.0 3-11 mmol/L Blood Urea Nitrogen 26 7-18 mg/dl Creatinine 1.05 0.60-1.40 mg/dl Est Creatinine Clear Calc Drug Dose 85.3 ml/min Estimated GFR () 97.5 Estimated GFR (Non- 84.1 BUN/Creatinine Ratio 24.4 10-20 Random Glucose 190 70-99 mg/dl Calcium Level 8.3 8.5-10.1 mg/dl Total Bilirubin 0.6 0.2-1 mg/dl Aspartate Amino Transf (AST/SGOT) 241 15-37 U/L Alanine Aminotransferase (ALT/SGPT) 377 12-78 U/L Alkaline Phosphatase 639 45-117 U/L Total Protein 7.0 6.4-8.2 gm/dl Albumin 2.2 3.4-5.0 gm/dl Globulin 4.8 2.5-4.0 gm/dl Albumin/Globulin Ratio 0.5 0.9-2 ASSESSMENT and PLAN: s/p LLE 1st TMA and amputation 2nd and 3rd toes gangrene and osteomyelitis L toes Pt doing well post op. OK for d/c home from vascular standpoint with wound vac. WIll need wound clinic outpt follow up. Will see in our office 2 weeks after d/c.
[2018-02-15] MEDS ORDERED: NURSING VERBAL MED ORDER ONE (12:00)
[2018-02-15] MEDS ORDERED: HYDROmorphone INJ 0.5 MG/0.5 ML SYR IV ONE (12:00)
--- NOTE | 2018-02-15 15:41 | Gastrointestinal Consultation ---
Gastrointestinal Consultation Date of Consultation: Feb 15, 2018 Attending Physician: Lee Callaway Consulting Physician: Butch Blankenship Reason for Consultation: Elevated LFTs History of Present Illness Patient is a 48 year old male admitted currently for septic shock, UTI, osteomyelitis of L toes. He had presented initially to [facility] with BS of 500-60s, syncopal episode when getting out of car. In [place] ED found to have systolic of 70s. He's transferred to [facility] for septic shock treatment, started on Levophed for pressure support. He was initially suspected to have UTI but UA here looks clean. He did have MRSA infected seroma following back surgery 1 month ago, treated with Doxycycline. He also has osteomyelitis infections of his L food 1st, 2nd and 3rd toes. He underwent amputations of these toes on 02/12/18. Currently on Vancomycin and Zosyn IV antibiotics; wound VAC on wounds DC'd now. Toes wound cx growing coag negative staph. Regarding his elevated LFTs, he did mention to Dr. Ocampo (hospitalist) at one point that he had hx of this before but likely related to psych meds. He remembered this but also mentioned that he's been on Seroquel and Trazodone for years now. He denies any new psych meds. Only other new meds are Doxycycline as noted above, also Brilinta since his STEMI s/p 4 cardiac stents placements at end of November. His liver u/s showed fatty liver, CBD of 5mm. He is s/p cholecystectomy. Hepatitis panel negative. Iron indices normal. LFTs: Tbili 0.6; AST 101->241, ALT 203->377, Alk phos 308->639. Lipase normal. Plt and INR normal. He denies any hx of ETOH, illicit drugs uses. He denies also tobacco use but admission H&P showed he smokes daily. He denies any family hx of autoimmune or hereditary liver diseases, cancers. He does have tattoos, but no body piercing. Denies any hx of blood transfusions. Past Medical/Surgical History Past Medical History: CAD s/p cardiac stent placements NSTEMI GERD Anxiety Asthma Chronic back pain Depression Hyperlipidemia MRSA Neuropathy DM COPD HTN BPH THOR Fe deficiency Past Surgical History: Cardiac cath and stents placement x 4 Lumbar laminetomy and fusion Ureteral stent placement Family History Mother - diabetes mellitus, passed at age 54 y/o Grandparents w hx of heart disease, HTN Social History Smoking Status: Current Every Day Smoker Drug Use: none Marital Status: Occupation Status: unemployed Allergies Coded Allergies: Morphine (Verified Allergy, Intermediate, RASH, 02/07/18) Acetaminophen (Verified Adverse Reaction, Intermediate, GI UPSET, STILL TAKES IT, 02/07/18) Prochlorperazine (Verified Adverse Reaction, Intermediate, ANXIOUS/ IRRITABLE, 02/07/18) Promethazine (Verified Adverse Reaction, Intermediate, ANXIOUS/IRRITABLE, 02/09/18) Current Medications Home Meds and Scripts Medications Dose Route/Sig Max Daily Dose Days Date Category Trazodone (Trazodone HCl) 100 Mg Tab 150 Mg PO HS 02/07/18 Reported Toprol Xl (Metoprolol Succinate) 25 Mg Tabcr 25 Mg PO DAILY 02/07/18 Reported Brilinta (Ticagrelor) 90 Mg Tab 90 Mg PO BID 02/07/18 Reported Seroquel (Quetiapine Fumarate) 200 Mg Tab 400 Mg PO HS 02/07/18 Reported Seroquel (Quetiapine Fumarate) 200 Mg Tab 200 Mg PO QAM 02/07/18 Reported Ramipril 5 Mg Cap 5 Mg PO DAILY 90 02/07/18 Reported Ventolin Hfa (Albuterol) 200 Puffs/33350 Mcg Aers 2 Puffs INH Q6H PRN 02/07/18 Reported Roxicodone Ir (Oxycodone HCl) 5 Mg Tab 15 Mg PO Q6H PRN 02/07/18 Reported Megestrol Acetate (Megestrol Acetate (Appetite)) 625 Mg/5 Ml Rylee 625 Mg PO DAILY 02/07/18 Reported Lactinex (Lactobacillus Acidophilus) Tab 2 Tab PO BID 02/07/18 Reported Neurontin (Gabapentin) 600 Mg Tab 600 Mg PO BID 02/07/18 Reported Flomax (Tamsulosin Hcl) 0.4 Mg Cap 0.4 Mg PO DAILY 02/07/18 Reported Kp Ferrous Sulfate (Ferrous Sulfate) 325 Mg Tab 325 Tab PO DAILY 30 02/07/18 Reported Vibramycin (Doxycycline Hyclate) 100 Mg Cap 100 Mg PO BID 02/07/18 Reported Celexa (Citalopram Hydrobromide) 20 Mg Tab 20 Mg PO DAILY 02/07/18 Reported Lipitor (Atorvastatin Calcium) 40 Mg Tab 40 Mg PO DAILY 02/07/18 Reported Aspirin Ec (Aspirin) 81 Mg Tab 81 Mg PO DAILY 02/07/18 Reported Review of Systems Constitutional: No fever, No chills Respiratory: No cough, No shortness of breath Cardiac: No chest pain Abdomen: No pain, No nausea, No vomiting, No diarrhea, No constipation Endo: + fatigue Skin: No rash, No itch, No jaundice Physical Exam Date Time Temp Pulse Resp B/P (MAP) Pulse Ox O2 Delivery O2 Flow Rate FiO2 02/15/18 08:30 Room Air 02/15/18 06:52 36.8 78 16 116/81 (93) 96 Room Air 02/14/18 23:50 96 Room Air 2.0 02/14/18 23:15 37.2 91 16 125/77 (93) 96 Room Air 02/14/18 17:09 Room Air 02/14/18 15:45 37.0 94 18 121/80 (94) 97 Room Air General Appearance: WD/WN, no apparent distress Eyes: normal inspection, PERRL, EOMI Neck: supple, no JVD, trachea midline Respiratory/Chest: normal breath sounds, no respiratory distress, no accessory muscle use Cardiovascular: regular rate, rhythm, no gallop, no murmur Abdomen: normal bowel sounds, non tender, soft Extremities: no pedal edema, + pertinent finding (L foot with dressing) Neurologic/Psych: alert, normal mood/affect, oriented x 3 Laboratory Results Last 24 Hours Test 02/14/18 16:58 02/14/18 19:06 02/14/18 20:16 02/15/18 06:51 Bedside Glucose 84 mg/dl 179 mg/dl Vancomycin Level Trough 19.4 mcg/ml Sodium Level 137 mmol/L Potassium Level 4.2 mmol/L Chloride Level 108 mmol/L Carbon Dioxide Level 20 mmol/L Anion Gap 9.0 mmol/L Blood Urea Nitrogen 26 mg/dl Creatinine 1.05 mg/dl Est Creatinine Clear Calc Drug Dose 85.3 ml/min Estimated GFR () 97.5 Estimated GFR (Non- 84.1 BUN/Creatinine Ratio 24.4 Random Glucose 190 mg/dl Calcium Level 8.3 mg/dl Total Bilirubin 0.6 mg/dl Aspartate Amino Transf (AST/SGOT) 241 U/L Alanine Aminotransferase (ALT/SGPT) 377 U/L Alkaline Phosphatase 639 U/L Total Protein 7.0 gm/dl Albumin 2.2 gm/dl Globulin 4.8 gm/dl Albumin/Globulin Ratio 0.5 Test 02/15/18 08:04 02/15/18 12:07 Bedside Glucose 213 mg/dl 251 mg/dl Impression Patient is a 48 year old male admitted for septic shock, osteomyelitis s/p amputation of L 1st to 3rd toes, wound VAC placement now DC'd. Currently GI consulted for elevated LFTs. Hx of STEMI with cardiac stent placements late November and since then placed on Brilinta. Another new med is Doxycycline for back seroma a week ago. His liver u/s showed fatty liver. Acute hepatitis panel and iron indices normal. DDX: drug injury from antibiotics (doxycycline vs Zosyn), shock liver but pattern of rise suggest against this, infection (osteomyelitis) Plan - Obtain serologies to r/o autoimmune or hereditary liver diseases - Liver doppler to r/o PVT - Obtain urine toxicology - Avoid hepatotoxic meds - May consult with ID if antibiotics can be changed to ones with less adverse reaction involving elevated LFTs. ATTESTATION: I have performed a history and physical examination of this patient and reviewed the electronic record. Specifically on physical examination there is no abdominal or RUQ percussion tenderness. I have discussed the case with YESI Menchaca. The above note reflects my findings, conclusions, and recommendations. Butch Blankenship MD
[2018-02-15 15:42] VITALS: BP 104/67; PULSE 86; TEMP 36.9; O2SAT 94
--- NOTE | 2018-02-15 18:17 | DIAGNOSTIC IMAGING REPORT ---
DUPLEX PORTAL HEPATIC VEINS CLINICAL HISTORY: elevated lft; r/o pVT pain TECHNIQUE: Venous and arterial Doppler COMPARISON STUDY: None FINDINGS: Normal study. No evidence for venous occlusive change. Hepatic and portal venous structures are patent. IMPRESSION: Normal study. No evidence for venous thrombosis. The above report was generated using voice recognition software. It may contain grammatical, syntax or spelling errors. Electronically signed by: Vaughn Duran M.D. 02/15/2018 6:16 PM Dictated Date/Time: 02/15/2018 6:16 PM
[2018-02-15] MEDS: TAMSULOSIN HCL 0.4 MG CAP PO SCH (21:14)
[2018-02-15] MEDS: TRAZODONE HCL 100 MG TAB PO SCH (21:14)
[2018-02-15] MEDS: OXYCODONE HCL IR 5 MG TAB (IMMEDIATE RELEASE) PO PRN (21:21)
[2018-02-15 23:55] VITALS: BP 101/66; PULSE 75; TEMP 36.8; O2SAT 95
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
[2018-02-16 00:15] VITALS: O2SAT 95
[2018-02-16] MEDS: PIPERACILL/TAZOBAC IV 3.375 GM in DEXTROSE 5% 100ML 100 ML IV SCH (02:37)
[2018-02-16] MEDS: HYDROmorphone INJ 0.5 MG/0.5 ML SYR IV PRN ×10 (04:03→22:42)
[2018-02-16] MEDS: VANCOMYCIN IV 1,250 MG in SODIUM CHLORIDE 0.9% 250ML 250 ML IV SCH (05:39)
[2018-02-16] MEDS: KETOROLAC TROMETHAMINE 30 MG/ML VIAL IV PRN ×2 (06:34→18:16)
[2018-02-16 07:10] VITALS: BP 115/77; PULSE 81; TEMP 36.7; O2SAT 97
[2018-02-16 07:52] LABS: HEMOGLOBIN 9.4 g/dL (14.0-18.0); MEAN CELL VOLUME 81.7 fL (80-100); MEAN CORPUSCULAR HEMOGLOBIN 26.5 pg (25-34); MEAN CORPUSCULAR HGB CONC 32.4 g/dl (32-36); MEAN PLATELET VOLUME 11.8 fL (7.4-10.4); PLATELET COUNT 216 K/uL (130-400); RED CELL DISTRIBUTION WIDTH CV 17.2 % (11.5-14.5); RED CELL DISTRIBUTION WIDTH SD 51.4 fL (36.4-46.3); WHITE BLOOD COUNT 5.75 K/uL (4.8-10.8)
[2018-02-16 08:04] LABS: INR 1.1 (0.9-1.1)
[2018-02-16 08:22] LABS: ALBUMIN 2.4 gm/dl (3.4-5.0); CREATININE 0.87 mg/dl (0.60-1.40); POTASSIUM 4.4 mmol/L (3.5-5.1); TOTAL PROTEIN 7.1 gm/dl (6.4-8.2)
[2018-02-16] MEDS: GABAPENTIN 600 MG TAB PO SCH ×3 (08:54→21:04)
[2018-02-16] MEDS: LACTOBACILLUS ACIDOPHILUS (FLORANEX) TAB PO SCH ×3 (08:54→18:16)
[2018-02-16] MEDS: CITALOPRAM 20 MG TAB PO SCH (08:54)
[2018-02-16] MEDS: ENALAPRIL MALEATE 10 MG TAB PO SCH (08:55)
[2018-02-16] MEDS: METOPROLOL SUCC 25MG EXT REL TAB PO SCH (08:55)
[2018-02-16] MEDS: TICAGRELOR 90 MG TAB PO SCH ×2 (08:56→21:03)
[2018-02-16] MEDS: ASPIRIN 81 MG ECTAB PO SCH (08:57)
[2018-02-16] MEDS: FERROUS SULFATE 325 MG TAB PO SCH (08:57)
[2018-02-16] MEDS: QUETIAPINE FUMARATE 200 MG TAB PO SCH ×2 (08:58→21:05)
[2018-02-16] MEDS ORDERED: AMOXICILLIN/CLAVULANATE TAB 875 MG TAB PO ONE (09:30)
[2018-02-16] MEDS ORDERED: HYDROmorphone INJ 2 MG/ML SYR/VIAL ONE (09:43)
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
[2018-02-16] MEDS ORDERED: HYDROmorphone INJ 0.5 MG/0.5 ML SYR IV STA (09:50)
[2018-02-16] MEDS: HEPARIN SOD 5000 UNIT/0.5 ML CARP SQ SCH ×2 (10:09→21:24)
[2018-02-16] MEDS: INSULIN GLARGINE SOLOSTAR 100 UNITS/ML 3 ML PEN SC SCH (10:10)
[2018-02-16] MEDS: INSULIN ASPART 100 UNITS/ML 3 ML PEN SC SCH ×4 (10:42→20:58)
--- NOTE | 2018-02-16 10:56 | Progress Note ---
Progress Note Date of Service: Feb 16, 2018. Subjective Complains of shooting pain and sensitivity at L great toe amputation site. 24h events: Yesterday had significant venous bleeding from great toe amp site. Nursing staff obtained hemostasis and wound remained hemostatic Problem List osteomyelitis s/p L great toe amp, 2,3 distal toe amp Objective Vital Signs Vital Signs Past 12 Hours Date Time Temp Pulse Resp B/P (MAP) Pulse Ox O2 Delivery O2 Flow Rate FiO2 02/16/18 07:10 36.7 81 16 115/77 (90) 97 Room Air 02/16/18 00:15 95 Room Air 2.0 02/15/18 23:55 36.8 75 16 101/66 (78) 95 Room Air Exam NCAT L great toe amp site hemostatic with granulation tissue at base. 4 x 2 x 2cm wound. Significantly smaller from initial surgery wound. Vac dressing reapplied - adaptic at base, black foam atop. 2 & 3rd distal toe amputation sites CDI. sutures intact. Laboratory and Microbiology Results Past 24 Hours Test 02/15/18 12:07 02/15/18 15:59 02/15/18 17:18 02/15/18 20:10 Range/Units Bedside Glucose 251 85 70-99 mg/dl Urine Opiates Screen POS NEG Urine Methadone, Qualitative NEG NEG Urine Barbiturates NEG NEG Urine Phencyclidine (PCP) Level NEG NEG Ur Amphetamine/Methamphetamine NEG NEG MDMA (Ecstasy) Screen POS NEG Urine Benzodiazepines Screen NEG NEG Urine Cocaine Metabolite NEG NEG Urine Marijuana (THC) NEG NEG Test 02/15/18 21:00 02/16/18 07:06 02/16/18 08:07 Range/Units Bedside Glucose 147 110 70-99 mg/dl White Blood Count 5.75 4.8-10.8 K/uL Red Blood Count 3.55 4.7-6.1 M/uL Hemoglobin 9.4 14.0-18.0 g/dL Hematocrit 29.0 42-52 % Mean Corpuscular Volume 81.7 80-100 fL Mean Corpuscular Hemoglobin 26.5 25-34 pg Mean Corpuscular Hemoglobin Concent 32.4 32-36 g/dl RDW Standard Deviation 51.4 36.4-46.3 fL RDW Coefficient of Variation 17.2 11.5-14.5 % Platelet Count 216 130-400 K/uL Mean Platelet Volume 11.8 7.4-10.4 fL Prothrombin Time 11.4 9.0-12.0 SECONDS Prothromb Time International Ratio 1.1 0.9-1.1 Sodium Level 139 136-145 mmol/L Potassium Level 4.4 3.5-5.1 mmol/L Chloride Level 110 98-107 mmol/L Carbon Dioxide Level 21 21-32 mmol/L Anion Gap 8.0 3-11 mmol/L Blood Urea Nitrogen 20 7-18 mg/dl Creatinine 0.87 0.60-1.40 mg/dl Est Creatinine Clear Calc Drug Dose 102.9 ml/min Estimated GFR () 119.1 Estimated GFR (Non- 102.8 BUN/Creatinine Ratio 22.8 10-20 Random Glucose 118 70-99 mg/dl Calcium Level 9.0 8.5-10.1 mg/dl Total Bilirubin 0.6 0.2-1 mg/dl Aspartate Amino Transf (AST/SGOT) 238 15-37 U/L Alanine Aminotransferase (ALT/SGPT) 404 12-78 U/L Alkaline Phosphatase 543 45-117 U/L Total Protein 7.1 6.4-8.2 gm/dl Albumin 2.4 3.4-5.0 gm/dl Globulin 4.7 2.5-4.0 gm/dl Albumin/Globulin Ratio 0.5 0.9-2 48 year old m s/p L toe amputations with remaining open wound. Healing well. Plan to continue wound vac with next change Thursday, 02/19 if remains inpatient.
--- NOTE | 2018-02-16 11:00 | Gastroenterology Progress Note ---
Progress Note Date of Service: Feb 16, 2018 Subjective Pt evaluation today including: conversation w/ patient, physical exam, chart review, lab review, review of inpatient medication list Pt just had L toe wound VAC placed again, having lot of pain. Denies any abd pain, n/v. LFTs similarly elevated. Liver doppler normal w/o PVT. Review of Systems Constitutional: No fever, No chills Respiratory: No cough, No shortness of breath Cardiac: No chest pain Abdomen: No pain, No nausea, No vomiting Musculoskeletal: + see HPI Medications Current Inpatient Medications Medications (Trade) Dose Ordered Sig/L[place]onne Route Start Time Stop Time Status Last Admin Dose Admin Heparin Sodium (Porcine) (Heparin Sq 5000 Unit/0.5ml) 5,000 unit Q12H SQ 02/07/18 09:00 03/09/18 08:59 02/16/18 10:09 5,000 UNIT Lorazepam (Ativan Inj) 0.5 mg Q4H PRN IV 02/07/18 03:30 03/09/18 03:29 02/15/18 09:31 0.5 MG Ondansetron HCl (Zofran Inj) 4 mg Q6H PRN IV 02/07/18 03:30 03/09/18 03:29 Insulin Aspart (novoLOG ASPART) SLIDING SCALE If C... ACHS SC 02/07/18 06:45 03/09/18 06:44 02/16/18 10:42 10 UNITS Glucose (Glucose 40% Gel) 15-30 GRAMS 15 GRAMS... UD PRN PO 02/07/18 03:30 03/09/18 03:29 Glucose (Glucose Chew Tab) 4-8 Tablets 4 Tabl... UD PRN PO 02/07/18 03:30 03/09/18 03:29 Dextrose (Dextrose 50% 50ML Syringe) 25-50ML OF 50% DW IV FOR... UD PRN IV 02/07/18 03:30 03/09/18 03:29 Glucagon (Glucagon Inj) 1 mg UD PRN SQ 02/07/18 03:30 03/09/18 03:29 Carbohydrates (Carbohydrates For Hypoglycemia) 15-30 GRAMS 15 grams if BSG 54-69... UD PRN PO 02/07/18 03:30 03/09/18 03:29 Albuterol (Ventolin Hfa Inhaler) 2 puffs Q6H PRN INH 02/07/18 04:15 03/09/18 04:14 Aspirin (Ecotrin Tab) 81 mg DAILY PO 02/07/18 09:00 03/09/18 08:59 02/16/18 08:57 81 MG Atorvastatin Calcium (Lipitor Tab) 40 mg HS PO 02/07/18 21:00 03/09/18 20:59 Future Hold 02/13/18 21:16 40 MG Citalopram Hydrobromide (celeXA TAB) 20 mg DAILY PO 02/07/18 09:00 03/09/18 08:59 02/16/18 08:54 20 MG Gabapentin (Neurontin Tab) 600 mg TID PO 02/07/18 09:00 03/09/18 08:59 02/16/18 08:54 600 MG Quetiapine Fumarate (seroQUEL TAB) 200 mg QAM PO 02/07/18 09:00 03/09/18 08:59 02/16/18 08:58 200 MG Quetiapine Fumarate (seroQUEL TAB) 400 mg HS PO 02/07/18 21:00 03/09/18 20:59 02/15/18 21:15 400 MG Tamsulosin HCl (Flomax Cap) 0.4 mg HS PO 02/07/18 21:00 03/09/18 20:59 02/15/18 21:14 0.4 MG Ticagrelor (Brilinta Tab) 90 mg BID PO 02/07/18 09:00 03/09/18 08:59 02/16/18 08:56 90 MG Trazodone HCl (Desyrel Tab) 150 mg HS PO 02/07/18 21:00 03/09/18 20:59 02/15/18 21:14 150 MG Miscellaneous Information (Order Awaiting Action) 1 ea QS N/A 02/07/18 08:00 03/09/18 07:59 Lactobacillus Acidophilus (Floranex Tab) 4 tab TIDM PO 02/07/18 07:15 03/09/18 07:14 02/16/18 08:54 4 TAB Ferrous Sulfate (Feosol Tab) 325 mg QAM PO 02/07/18 09:00 03/09/18 08:59 02/16/18 08:57 325 MG Hydromorphone HCl (Dilaudid Inj) 1 mg Q2HWA PRN IV 02/07/18 09:45 02/21/18 09:44 02/16/18 10:43 1 MG Metoprolol Succinate (Toprol Xl Tab) 25 mg DAILY PO 02/10/18 08:00 03/12/18 08:59 02/16/18 08:55 25 MG Enalapril Maleate (Vasotec Tab) 20 mg DAILY PO 02/10/18 08:00 03/12/18 08:59 02/16/18 08:55 20 MG Oxycodone HCl (Roxicodone Immediate Rel Tab) 20 mg Q6H PRN PO 02/12/18 17:45 02/21/18 03:44 02/15/18 21:21 20 MG Ketorolac Tromethamine (Toradol Inj) 30 mg Q6H PRN IV 02/13/18 12:45 02/18/18 12:44 02/16/18 06:34 30 MG Insulin Glargine (Lantus Solostar Pen) 20 units QAM SC 02/15/18 09:00 03/11/18 08:59 02/16/18 10:10 20 UNITS Lorazepam 0.5 mg/ Syringe 1 ml @ 1 mls/min Q4H PRN IV 02/15/18 09:15 03/17/18 09:14 Amoxicillin/ Clavulanate Potassium (Augmentin Tab) 875 mg BIDM PO 02/16/18 17:45 03/30/18 17:44 Objective Vital Signs Date Time Temp Pulse Resp B/P (MAP) Pulse Ox O2 Delivery O2 Flow Rate FiO2 02/16/18 07:10 36.7 81 16 115/77 (90) 97 Room Air 02/16/18 00:15 95 Room Air 2.0 02/15/18 23:55 36.8 75 16 101/66 (78) 95 Room Air 02/15/18 16:10 Room Air 02/15/18 15:42 36.9 86 17 104/67 (79) 94 Room Air Physical Exam General Appearance: + mild distress (having pain on L foot) Eyes: normal inspection, PERRL, EOMI Neck: supple, no JVD, trachea midline Respiratory/Chest: normal breath sounds, no respiratory distress, no accessory muscle use Cardiovascular: regular rate, rhythm, no gallop, no murmur Abdomen: normal bowel sounds, non tender, soft Extremities: + pertinent finding (L foot with VAC in place. ) Neurologic/Psych: alert, normal mood/affect, oriented x 3 Skin: normal color, no jaundice, no rash Laboratory Results Last 24 Hours Test 02/15/18 12:07 02/15/18 15:59 02/15/18 17:18 02/15/18 20:10 Bedside Glucose 251 mg/dl 85 mg/dl Urine Opiates Screen POS Urine Methadone, Qualitative NEG Urine Barbiturates NEG Urine Phencyclidine (PCP) Level NEG Ur Amphetamine/Methamphetamine NEG MDMA (Ecstasy) Screen POS Urine Benzodiazepines Screen NEG Urine Cocaine Metabolite NEG Urine Marijuana (THC) NEG Test 02/15/18 21:00 02/16/18 07:06 02/16/18 08:07 Bedside Glucose 147 mg/dl 110 mg/dl White Blood Count 5.75 K/uL Red Blood Count 3.55 M/uL Hemoglobin 9.4 g/dL Hematocrit 29.0 % Mean Corpuscular Volume 81.7 fL Mean Corpuscular Hemoglobin 26.5 pg Mean Corpuscular Hemoglobin Concent 32.4 g/dl RDW Standard Deviation 51.4 fL RDW Coefficient of Variation 17.2 % Platelet Count 216 K/uL Mean Platelet Volume 11.8 fL Prothrombin Time 11.4 SECONDS Prothromb Time International Ratio 1.1 Sodium Level 139 mmol/L Potassium Level 4.4 mmol/L Chloride Level 110 mmol/L Carbon Dioxide Level 21 mmol/L Anion Gap 8.0 mmol/L Blood Urea Nitrogen 20 mg/dl Creatinine 0.87 mg/dl Est Creatinine Clear Calc Drug Dose 102.9 ml/min Estimated GFR () 119.1 Estimated GFR (Non- 102.8 BUN/Creatinine Ratio 22.8 Random Glucose 118 mg/dl Calcium Level 9.0 mg/dl Total Bilirubin 0.6 mg/dl Aspartate Amino Transf (AST/SGOT) 238 U/L Alanine Aminotransferase (ALT/SGPT) 404 U/L Alkaline Phosphatase 543 U/L Total Protein 7.1 gm/dl Albumin 2.4 gm/dl Globulin 4.7 gm/dl Albumin/Globulin Ratio 0.5 Assessment and Plan Patient is a 48 year old male admitted for septic shock, osteomyelitis s/p amputation of L 1st to 3rd toes, wound VAC placement now DC'd. Currently GI consulted for elevated LFTs. Hx of STEMI with cardiac stent placements late November and since then placed on Brilinta. Another new med is Doxycycline for back seroma a week ago. His liver u/s showed fatty liver. Acute hepatitis panel and iron indices normal. DDX: drug injury from antibiotics (doxycycline vs Zosyn), shock liver but pattern of rise suggest against this, infection (osteomyelitis) LFT similarly elevated, Liver doppler WNL. Serologies pending. Plan - F/U serologies to r/o autoimmune or hereditary liver diseases - Liver doppler to r/o PVT -> WNL - Obtain urine toxicology -> + for opiates and MDMA. - Avoid hepatotoxic meds - May consult with ID if antibiotics can be changed to ones with less adverse reaction involving elevated LFTs. ATTESTATION: I have performed a history and physical examination of this patient and reviewed the electronic record. Specifically on physical examination there is no abdominal tenderness or hepatomegaly. I have discussed the case with YESI Menchaca. The above note reflects my findings, conclusions, and recommendations. Butch Blankenship MD
--- NOTE | 2018-02-16 11:19 | DIAGNOSTIC IMAGING REPORT ---
L-SPINE MIN 4 VIEWS ROUTINE CLINICAL HISTORY: Lower back pain. COMPARISON STUDY: No previous studies for comparison. FINDINGS: There is evidence for fecal retention. There are postsurgical changes of discectomies and interbody fusions at the L1-2, L2-3, and L3-4 levels. There is a posterior spinal fusion with pedicle screw fixation at the L4-5 level. There is an anterior spinal fusion at the L5-S1 level. No acute fractures are visualized. There are surgical clips within the right upper quadrant likely secondary to a prior cholecystectomy. There is a BB like foreign body projected over the right lower lobe of the lung. IMPRESSION: 1. Postsurgical change. No fractures or subluxations identified. 2. Fecal retention Electronically signed by: Lee Jerry M.D. 02/16/2018 11:17 AM Dictated Date/Time: 02/16/2018 11:15 AM
[2018-02-16] MEDS ORDERED: GADAVIST IV PRN (15:15)
--- NOTE | 2018-02-16 15:33 | DIAGNOSTIC IMAGING REPORT ---
LUMBAR SPINE COMBINATION HISTORY: Pain ongoing back pain, eval for any infectious source of l-spine TECHNIQUE: Multiplanar multisequence MRI of the lumbar spine was performed both before and after the intravenous administration of contrast. COMPARISON: None. FINDINGS: For the purpose of the report the L5-S1 disc space will be located on axial image 23 of 25. Findings consistent with a disc spacers from L1 through L3. Findings of an anterior fusion at L5-S1 with posterior laminectomy and fusion at L4 and L5. No abnormal postcontrast enhancement on the sagittal images. L1-L2: No significant central canal or neural foraminal narrowing. L2-L3: No significant central canal or neural foraminal narrowing. L3-L4: No significant central canal or neural foraminal narrowing. L4-L5: No significant central canal or neural foraminal narrowing. L5-S1: No significant central canal or neural foraminal narrowing. IMPRESSION: 1. Findings consistent with extensive laminectomy and fusion-type changes throughout the entire lumbosacral spine. 2. No evidence for abnormal postcontrast enhancement. 3. No evidence of disc herniation or spinal stenosis. 4. No evidence for abnormal mass, collection, or abnormal postcontrast enhancement. The above report was generated using voice recognition software. It may contain grammatical, syntax or spelling errors. Electronically signed by: Vaughn Duran M.D. 02/16/2018 3:31 PM Dictated Date/Time: 02/16/2018 3:28 PM
[2018-02-16 15:40] VITALS: BP 92/60; PULSE 81; TEMP 36.9; O2SAT 97
[2018-02-16] MEDS: AMOXICILLIN/CLAVULANATE TAB 875 MG TAB PO SCH (19:50)
[2018-02-16] MEDS: TAMSULOSIN HCL 0.4 MG CAP PO SCH (21:03)
[2018-02-16] MEDS: TRAZODONE HCL 100 MG TAB PO SCH (21:03)
[2018-02-16 22:44] VITALS: BP 100/64; PULSE 81; TEMP 36.6; O2SAT 97
[2018-02-17] MEDS: HYDROmorphone INJ 0.5 MG/0.5 ML SYR IV PRN ×7 (00:56→14:26)
[2018-02-17 06:49] LABS: CREATININE 0.88 mg/dl (0.60-1.40)
[2018-02-17 07:19] VITALS: BP 115/76; PULSE 95; TEMP 37; O2SAT 96
[2018-02-17 09:05] LABS: ALBUMIN 2.3 gm/dl (3.4-5.0); TOTAL PROTEIN 6.8 gm/dl (6.4-8.2)
[2018-02-17] MEDS: QUETIAPINE FUMARATE 200 MG TAB PO SCH (09:14)
[2018-02-17] MEDS: AMOXICILLIN/CLAVULANATE TAB 875 MG TAB PO SCH (09:15)
[2018-02-17] MEDS: GABAPENTIN 600 MG TAB PO SCH ×2 (09:15→13:32)
[2018-02-17] MEDS: METOPROLOL SUCC 25MG EXT REL TAB PO SCH (09:15)
[2018-02-17] MEDS: FERROUS SULFATE 325 MG TAB PO SCH (09:16)
[2018-02-17] MEDS: LACTOBACILLUS ACIDOPHILUS (FLORANEX) TAB PO SCH ×2 (09:17→12:42)
[2018-02-17] MEDS: ASPIRIN 81 MG ECTAB PO SCH (09:17)
[2018-02-17] MEDS: TICAGRELOR 90 MG TAB PO SCH (09:18)
[2018-02-17] MEDS: CITALOPRAM 20 MG TAB PO SCH (09:18)
[2018-02-17] MEDS: ENALAPRIL MALEATE 10 MG TAB PO SCH (09:19)
[2018-02-17] MEDS: HEPARIN SOD 5000 UNIT/0.5 ML CARP SQ SCH (09:34)
[2018-02-17] MEDS: INSULIN GLARGINE SOLOSTAR 100 UNITS/ML 3 ML PEN SC SCH (09:34)
[2018-02-17] MEDS: INSULIN ASPART 100 UNITS/ML 3 ML PEN SC SCH ×2 (09:35→12:53)
[2018-02-17] MEDS ORDERED: AMOX1TAB43 PO (09:53)
[2018-02-17] MEDS ORDERED: DOXY100C PO (09:53)
[2018-02-17] MEDS ORDERED: OXYC-90 PO (09:53)
[2018-02-17] MEDS ORDERED: INSDGIPEN SC (09:53)
[2018-02-17] MEDS ORDERED: GABA600T PO (09:53)
[2018-02-17] MEDS ORDERED: INSU32MI13 SC (09:53)
--- NOTE | 2018-02-17 10:02 | Discharge Instructions ---
Discharge Instructions Date of Service Feb 17, 2018. Admission Reason for Admission: Septic Shock due to left foot infection Discharge Discharge Diagnosis / Problem: left foot infection (toes 1-3) with resulting amputation of those toes Discharge Goals Goal(s): Improve nutritional status, Learn about illness, Diagnostic testing, Therapeutic intervention Activity Recommendations Activity Limitations: as noted below Weightbearing Status: Left partial (weight-bearing on heel only) . Instructions / Follow-Up Instructions / Follow-Up 1. See Dr. Benji Lane, [facility], in 2 weeks 2. See the [facility] in 1 week 3. See your family doctor in 5-7 days 4. STOP YOUR LIPITOR due to abnormal liver function tests 5. DO NOT TAKE TYLENOL UNDER ANY CIRCUMSTANCES due to the abnormal liver function tests 6. START lantus 15 units every morning for your diabetes 7. If possible check your blood sugars before every meal and at bedtime 8. You will need repeat liver function tests ("LFTs") within 1 week to ensure they are normalizing 9. Wound on left foot - place aquacel silver in wound bed, cover with optifoam dressing or similar dressing. Change daily and as needed. 10. Only weightbear on the HEEL of your left foot; do not place pressure on the toes/front of the foot 11. DO NOT TAKE METFORMIN AT THIS TIME due to use of IV contrast for your CAT scan today. You will need repeat blood work in 2 days to ensure your kidney function is normal before you start back on metformin. Return to [facility] or [facility] if - * you have fever over 100.5 degrees * you have worsening pain in the left foot even despite your pain medications * you have worsening redness, swelling, or drainage from the left foot Current Hospital Diet Patient's current hospital diet: AHA Diet (Heart Healthy), Diabetes Type 2 Diet Discharge Diet Recommended Diet: AHA Diet (Heart Healthy), Diabetes Type 2 Diet Procedures Procedures Performed: TMA of left first toe Toe amputation of left second and third toes Application of wound vac, 6x2x1.5 Pending Studies Studies pending at discharge: yes List of pending studies: various liver tests Laboratory Results Hemoglobin A1c Test 02/09/18 06:52 Range/Units Estimated Average Glucose 194 mg/dl Hemoglobin A1c 8.4 H 4.5-5.6 % Medical Emergencies . Who to Call and When: Medical Emergencies: If at any time you feel your situation is an emergency, please call 911 immediately. . Non-Emergent Contact Non-Emergency issues call your: Primary Care Provider, Surgeon (Dr Lane's office) Call Non-Emergent contact if: temperature is above 100.5, your pain is not controlled, your pain is worsening, your pain is unusual for you, your pain is concerning you, wound has increased drainage, wound has increased redness, wound has increased pain, you have any medication questions . . "Provider Documentation" section prepared by Lee King. .
--- NOTE | 2018-02-17 12:25 | DIAGNOSTIC IMAGING REPORT ---
CT ANGIOGRAM OF THE CHEST CLINICAL HISTORY: Atypical chest pain COMPARISON STUDY: Chest x-ray dated 02/09/2018 TECHNIQUE: Following the IV administration of 82 mL of Optiray-320, CT angiogram of the thorax was performed from the thoracic inlet to the lung bases utilizing the pulmonary embolus protocol. Images are reviewed in the axial, sagittal, and coronal planes. IV contrast was administered without complication. MIP imaging was performed. A dose lowering technique was utilized adhering to the principles of ALARA. CT DOSE: 277.40 mGy.cm FINDINGS: No pathologically enlarged axillary mediastinal or hilar lymph nodes were visualized. There was no evidence of thoracic aortic dilatation. There were no pulmonary artery filling defects to indicate acute pulmonary embolism. Evaluation is somewhat limited due to respiratory motion artifact. No pleural effusions are visualized. There is respiratory motion artifact. There are scattered groundglass nodular opacities within the upper lobes. The distribution favors an infectious/inflammatory process. There is a tiny left-sided Bochdalek hernia. There is a BB like foreign body projected over the right T8-9 posterior lateral intercostal space IMPRESSION: 1. No evidence of acute pulmonary embolism 2. Scattered bilateral groundglass nodular opacities within the upper lobes. The distribution favors an infectious/inflammatory process Electronically signed by: Lee Jerry M.D. 02/17/2018 12:24 PM Dictated Date/Time: 02/17/2018 12:19 PM
[2018-02-17] MEDS ORDERED: GI COCKTAIL PO STA (12:32)
[2018-02-17] MEDS ORDERED: ALUMINUM/MAGNESIUM SUSP 18 ML, LIDOCAINE HCL 2% VISCOUS SOLN 6 ML, BARCODE IDENTIFIER 1 EA PO ONE ×2 (13:00)
[2018-02-17 14:14] VITALS: BP 115/76; PULSE 95; TEMP 37; O2SAT 96
[2018-02-17] MEDS ORDERED: SUCR1TAB29 PO (14:30)
[2018-02-17] MEDS ORDERED: PANT40TA PO (14:30)
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
[2018-02-20 14:34] LABS: ANA SCREEN TC 249X NEGATIVE (NEGATIVE)
== END 2018-02-17 14:45 | disposition home or self-care (01) | DRG 853 ==
LOC: UNDOADMIN 03:04 → C.MSICU 03:04 → C.2T 17:52 → ENRESERV 02-09 17:26 → C.MS4W 02-09 18:07 → C.4E 02-09 19:30 → C.MSICU 02-12 14:12 → ENRESERV 02-12 14:14 → C.MSW 02-13 06:54
PROVIDERS: ADMIT Hospitalist; ATTEND Internal Medicine
PROC: 0Y6N0Z9 Detachment at Left Foot, Partial 1st Ray, Open Approach (ICD-10-PCS; principal; 2018-02-07)
PROC: 0Y6S0Z0 Detachment at Left 2nd Toe, Complete, Open Approach (ICD-10-PCS; principal; 2018-02-07)
PROC: 0Y6U0Z0 Detachment at Left 3rd Toe, Complete, Open Approach (ICD-10-PCS; principal; 2018-02-07)
DX: A41.9 Sepsis, unspecified organism (principal); R65.21 Severe sepsis with septic shock; N39.0 Urinary tract infection, site not specified; I96 Gangrene, not elsewhere classified; M86.9 Osteomyelitis, unspecified; I24.8 Other forms of acute ischemic heart disease; I50.22 Chronic systolic (congestive) heart failure; K21.9 Gastro-esophageal reflux disease without esophagitis; I95.9 Hypotension, unspecified; F17.200 Nicotine dependence, unspecified, uncomplicated; I25.10 Atherosclerotic heart disease of native coronary artery without angina pectoris; I10 Essential (primary) hypertension; I25.2 Old myocardial infarction; E11.9 Type 2 diabetes mellitus without complications; E78.5 Hyperlipidemia, unspecified; F32.9 Major depressive disorder, single episode, unspecified; J44.9 Chronic obstructive pulmonary disease, unspecified; G89.4 Chronic pain syndrome; Z95.5 Presence of coronary angioplasty implant and graft; Z79.82 Long term (current) use of aspirin; Z88.8 Allergy status to other drugs, medicaments and biological substances; Z88.6 Allergy status to analgesic agent; Z83.3 Family history of diabetes mellitus; Z88.5 Allergy status to narcotic agent; Z82.49 Family history of ischemic heart disease and other diseases of the circulatory system